=== PATIENT | male | born 1965 | race Caucasian/White ===

== ENCOUNTER → 2016-07-01 | Outpatient (CLI) | payer MEDICARE, OTHER ==
--- NOTE | 2016-07-01 19:26 | XR ---
EXAMINATION TYPE: XR chest 2V DATE OF EXAM: 07/01/2016 7:01 PM COMPARISON: 02/10/2015 HISTORY: Cough and congestion TECHNIQUE: Frontal and lateral views of the chest are obtained. FINDINGS: Heart and mediastinum are normal. Lungs are clear. Diaphragm is normal. Bony thorax appear s normal. IMPRESSION: Normal chest. No change.
== END | disposition home or self-care (01) ==
LOC: RADXRMAIN 18:49
PROVIDERS: ATTEND Nurse Practitioner Family
DX: R06.2 Wheezing (principal)
CPT/HCPCS: 71020

== ENCOUNTER 2017-11-18 22:17 | Observation (INO) | payer MEDICARE, OTHER ==
[2017-11-18 23:13] LABS: Basophils # (A) 0.1 k/uL (0-0.2); Basophils % (A) 1 %; Eosinophils # (A) 0.3 k/uL (0-0.7); Eosinophils % (A) 3 %; HCT 45.8 % (39.0-53.0); HGB 15.5 gm/dL (13.0-17.5); Lymphocytes % (A) 29 %; MCH 29.6 pg (25.0-35.0); MCHC 33.8 g/dL (31.0-37.0); MCV 87.6 fL (80.0-100.0); Mean Platelet Volume 8.2; Monocytes % (A) 7 %; Neutrophils # (A) 7.8 k/uL (1.3-7.7); Neutrophils % (A) 57 %; Platelet Count 235 k/uL (150-450); RBC 5.23 m/uL (4.30-5.90); WBC 13.7 k/uL (3.8-10.6)
[2017-11-18 23:20] LABS: Anion Gap 13 mmol/L; Blood Urea Nitrogen 17 mg/dL (9-20); Calcium 9.5 mg/dL (8.4-10.2); Carbon Dioxide 19 mmol/L (22-30); Chloride 108 mmol/L (98-107); Glucose 114 mg/dL (74-99); Sodium 140 mmol/L (137-145)
[2017-11-18] MEDS ORDERED: MORPHINE SULFATE 2 MG/ML SYRINGE IV STA (23:27)
[2017-11-18] MEDS ORDERED: ONDANSETRON 4 MG/2 ML VIAL IVP STA (23:27)
--- NOTE | 2017-11-18 23:32 | ED ---
Abdominal Pain HPI - General Chief Complaint: Urogenital Stated Complaint: kidney stones Time Seen by Provider: 11/18/17 22:27 Source: patient Mode of arrival: ambulatory Limitations: no limitations - History of Present Illness Initial Comments: Patient is a 51-year-old man with a history of previous kidney stones, as well as colostomy due to Crohn's disease. He presents with acute onset of left flank pain at about 9 PM, that he states is identical to previous episodes of kidney stone. He states that the pain now is radiating towards the left testicle. The pain is coming by nausea and 3-4 episodes of vomiting. He states pain is sharp, seems to come in waves, and is severe. He has not discovered worsening or relieving factors. The patient states that he has the urge to urinate but has not been able to pass any urine. Earlier today before coming in he noticed some blood in the urine. MD Complaint: abdominal pain Onset/Timin -: hour(s) Location: L flank Radiation: other (Left groin) Migration to: no migration Severity: severe Quality: sharp Consistency: colicky Improves With: nothing Worsens With: nothing Associated Symptoms: nausea, vomiting, other - Related Data Home Medications Medication Instructions Recorded Confirmed HYDROcodone/APAP 10-325MG [[place] 1 each PO Q4HR PRN 03/17/14 11/18/17 10] ALPRAZolam [Xanax] 1 mg PO Q8HR 05/22/15 11/18/17 Allergies Allergy/AdvReac Type Severity Reaction Status Date / Time Iodinated Contrast- Oral and Allergy Unknown Verified 11/18/17 22:57 IV Dye [Iodinated Contrast Media - IV Dye] ketorolac tromethamine Allergy Unknown Verified 11/18/17 22:57 [From Toradol] Review of Systems ROS Statement: Those systems with pertinent positive or pertinent negative responses have been documented in the HPI. ROS Other: All systems not noted in ROS Statement are negative. Constitutional: Denies: fever, chills Respiratory: Denies: cough, dyspnea Cardiovascular: Denies: chest pain, palpitations, edema Gastrointestinal: Reports: as per HPI, abdominal pain, nausea, vomiting. Denies : diarrhea, constipation, hematemesis, melena, hematochezia Genitourinary: Reports: as per HPI, urgency, hematuria, testicular pain. Denies : dysuria, discharge Musculoskeletal: Denies: back pain Skin: Denies: rash Neurological: Denies: headache Hematological/Lymphatic: Denies: easy bleeding Past Medical History Additional Past Medical History / Comment(s): crohn History of Any Multi-Drug Resistant Organisms: None Reported Past Surgical History: No Surgical Hx Reported Past Psychological History: No Psychological Hx Reported Smoking Status: Current every day smoker Past Alcohol Use History: None Reported Past Drug Use History: Marijuana General Exam Limitations: no limitations General appearance: alert, in distress Head exam: Present: atraumatic, normocephalic Eye exam: Present: normal appearance. Absent: scleral icterus, conjunctival injection Neck exam: Present: normal inspection Respiratory exam: Present: normal lung sounds bilaterally. Absent: respiratory distress, wheezes, rales, rhonchi, stridor Cardiovascular Exam: Present: regular rate, normal rhythm, normal heart sounds. Absent: systolic murmur, diastolic murmur, rubs, gallop GI/Abdominal exam: Present: soft, normal bowel sounds, other (Left-sided colostomy which is normal in appearance.). Absent: distended, tenderness, guarding, rebound, rigid, mass, pulsatile mass, hernia Extremities exam: Present: normal inspection, normal capillary refill. Absent: pedal edema, calf tenderness Back exam: Present: normal inspection. Absent: CVA tenderness (R), CVA tenderness (L) Neurological exam: Present: alert Skin exam: Present: warm, dry, intact, normal color. Absent: rash Course Vital Signs 11/18/17 22:23 Temperature 98.7 F Pulse Rate 86 Respiratory 18 Rate Blood Pressure 162/103 Medical Decision Making - Lab Data Result diagrams: 11/18/17 22:48 11/18/17 22:48 Lab Results 11/18/17 11/18/17 Range/Units 22:48 22:48 WBC 13.7 H (3.8-10.6) k/uL RBC 5.23 (4.30-5.90) m/uL Hgb 15.5 (13.0-17.5) gm/dL Hct 45.8 (39.0-53.0) % MCV 87.6 (80.0-100.0) fL MCH 29.6 (25.0-35.0) pg MCHC 33.8 (31.0-37.0) g/dL RDW 13.0 (11.5-15.5) % Plt Count 235 (150-450) k/uL Neutrophils % 57 % Lymphocytes % 29 % Monocytes % 7 % Eosinophils % 3 % Basophils % 1 % Neutrophils # 7.8 H (1.3-7.7) k/uL Lymphocytes # 4.0 (1.0-4.8) k/uL Monocytes # 1.0 (0-1.0) k/uL Eosinophils # 0.3 (0-0.7) k/uL Basophils # 0.1 (0-0.2) k/uL Sodium 140 (137-145) mmol/L Potassium 4.0 (3.5-5.1) mmol/L Chloride 108 H (98-107) mmol/L Carbon Dioxide 19 L (22-30) mmol/L Anion Gap 13 mmol/L BUN 17 (9-20) mg/dL Creatinine 0.90 (0.66-1.25) mg/dL Est GFR (CKD-EPI)AfAm >90 (>60 ml/min/1.73 sqM) Est GFR (CKD-EPI)NonAf >90 (>60 ml/min/1.73 sqM) Glucose 114 H (74-99) mg/dL Calcium 9.5 (8.4-10.2) mg/dL Disposition Referrals: Tigist Barrientos MD [Primary Care Provider] - 1-2 days
--- NOTE | 2017-11-19 00:12 | XR ---
EXAMINATION TYPE: XR KUB DATE OF EXAM: 11/18/2017 COMPARISON: 01/27/2013 HISTORY: Abdominal pain TECHNIQUE: 2 views FINDINGS: There is no sign of intestinal obstruction or pneumoperitoneum. Fecal pattern is normal. Th ere are clips from cholecystectomy. Lung bases are clear. IMPRESSION: Nonacute abdomen. No sign of a renal calculus.
[2017-11-19 01:26] LABS: Appearance,Urine Clear (Clear); Bacteria,Urine Rare /hpf; Bilirubin,Urine Negative (Negative); Blood,Urine Large (Negative); Budding Yeast,Urine Many /hpf; Color,Urine Light Red; Glucose,Urine (UA) Negative (Negative); Hyaline Casts,Urine 6 /lpf (0-2); Ketones,Urine Negative (Negative); Leukocyte Esterase,Urine Negative (Negative); Mucus,Urine Rare /hpf; Nitrite,Urine Negative (Negative); Protein,Urine 1+ (Negative); RBC,Urine >182 /hpf (0-5); Specific Gravity,Urine 1.018 (1.001-1.035); Squamous Epithelial Cell,Urine <1 /hpf (0-4); Urobilinogen,Urine <2.0 mg/dL (<2.0); WBC,Urine 9 /hpf (0-5)
[2017-11-19] MEDS ORDERED: MORPHINE SULFATE 2 MG/ML SYRINGE IV STA (02:14)
--- NOTE | 2017-11-19 05:58 | CT ---
EXAMINATION TYPE: CT abdomen pelvis wo con DATE OF EXAM: 11/19/2017 COMPARISON: 04/21/2012 HISTORY: abd pain, history of renal stones, history of Crohn'S disease, and ileostomy CT DLP: 495.90 mGycm Automated exposure control for dose reduction was used. TECHNIQUE: Helical acquisition of images was performed from the lung bases through the pelvis. FINDINGS: There is mild interstitial density at the right lung base. There is no pleural effusion. There is no pericardial effusion. Liver and spleen appear normal. There is no pancreatic mass. There are clips from cholecystectomy. Bi le ducts are not dilated. There is no adrenal mass. Right kidney has normal size and contour. Left ki dney is slightly enlarged with hydronephrosis. There is left-sided perinephric edema. There is 5 mm c alculus at the left ureteropelvic junction. There is no retroperitoneal adenopathy. There is ileostomy in the left mid abdomen. There is a rectal stump that appears unremarkable. Bladde r distends smoothly. I see no intestinal wall thickening. There is no ascites. There is ventral herni a on the right mid abdomen. This contains a loop of small bowel without incarceration. The bony struc tures appear intact. There is no evidence of a pelvic mass. IMPRESSION: OBSTRUCTING CALCULUS AT THE LEFT URETEROPELVIC JUNCTION. LEFT-SIDED HYDRONEPHROSIS AND PERINEPHRIC ED MARLEE. OBSTRUCTION IS NEW COMPARED TO OLD EXAM. STABLE RIGHT SIDE VENTRAL HERNIA WITHOUT EVIDENCE OF IN TESTINAL OBSTRUCTION.
--- NOTE | 2017-11-19 11:06 | HP ---
HISTORY AND PHYSICAL REASON FOR ADMISSION: Left ureteral stone with intractable colic. Jay Clancy is a 51-year-old gentleman with a history of Crohn's disease that is quite severe. He had has an ileostomy secondary to this. He has a history of kidney stones and has been cared for by Dr. Hernández in the past. He was last seen in our office in 2012. He had a ureteroscopy at that point in time by Dr. Hernández. The patient presented with a 24-hour history of severe ureteral colic. He was seen in the emergency room. CAT scan was obtained, I was not able to see it due to the system being down but according to the emergency room doctor, he had a 5 mm mid-ureteral stone. The patient's colic with severe and intractable. Thus, he was admitted to the hospital for IV hydration, narcotics and further evaluation. The patient has had multiple stones in the past. Per the patient, these stones have always had to be basketed. He has not been seen for several years. He has had no fever or chills. The urinalysis does not look infected. He is nauseated. PAST MEDICAL HISTORY: Positive for Crohn's disease as well as kidney stones. SURGICAL HISTORY: Includes multiple bowel surgeries including colon resection and colostomy/ileostomy. He also has had lumbar disc surgery and has severe sciatica due to this. CHRONIC MEDICATIONS INCLUDE: [place]. Family, social history is positive for colon cancer and brain cancer. The patient is a pack-a-day smoker. REVIEW OF SYSTEMS: There is no chest pain. shortness of breath. GI: Problems are as mentioned above as is the urologic problems. He does have chronic back pain. On examination, the patient is very uncomfortable. Vital signs are stable. HEENT examination is unremarkable. His respirations are normal. His heart is not tachycardic. The abdomen is soft. There is some tenderness in the left flank. The pain is general, it is unremarkable, the scrotum and testicles are unremarkable. Neurological examination is unremarkable. Musculoskeletal is unremarkable. Skin is normal. Lymphatic examination is unremarkable. IMPRESSION: 1. Left ureteral colic due to 5 mm mid-ureteral stone with intractable pain. 2. History of Crohn's disease, probably contributing to the stone disease. 3. History of sciatica due to lumbar disc disease. RECOMMENDATIONS: The patient will be admitted for IV hydration, parenteral narcotics, and further assessment as to determine whether he we needs to stone manipulation. MMODL / IJN: [id number] /
[2017-11-19] MEDS ORDERED: LACTATED RINGERS 1,000 ML IV ONE ×2 (12:59→18:14)
[2017-11-19] MEDS ORDERED: ONDANSETRON 4 MG/2 ML VIAL IVP PRN (13:06)
[2017-11-19] MEDS: MORPHINE SULFATE 2 MG/ML SYRINGE IVP PRN ×2 (13:23→16:01)
[2017-11-19] MEDS ORDERED: MIDAZOLAM 2 MG/2 ML VIAL ONE (17:52)
[2017-11-19] MEDS ORDERED: DEXAMETHASONE SOD PHOS (MDV) 100 MG/10 ML VIAL ONE (17:52)
[2017-11-19] MEDS ORDERED: ePHEDrine SULFATE/0.9% NACL/PF 50 MG/5 ML SYRINGE IV ONE (17:52)
[2017-11-19] MEDS ORDERED: fentaNYL (PF) 50 MCG/ML 2 ML AMP ONE (17:52)
[2017-11-19] MEDS ORDERED: SUCCINYLCHOLINE CHLORIDE 100 MG/5 ML SYR IV ONE (17:52)
[2017-11-19] MEDS ORDERED: ONDANSETRON 4 MG/2 ML VIAL ONE (17:52)
[2017-11-19] MEDS ORDERED: PROPOFOL 10 MG/ML 20 ML VIAL IV ONE (17:52)
[2017-11-19] MEDS ORDERED: LIDOCAINE 1% INJ 10MG/ML (20 ML MDV) ONE (17:52)
[2017-11-19] MEDS ORDERED: PHENYLEPHRINE-0.9% NACL SYG 1 MG/10 ML SYRINGE ONE (17:52)
[2017-11-19] MEDS ORDERED: SODIUM CHLORIDE 0.9% 50 ML with ceFAZolin 1,000 MG IV ONE ×2 (18:11)
[2017-11-19] MEDS ORDERED: IOHEXOL 350 MG/ML 50ML BOTTLE INJ ONE (18:14)
[2017-11-19] MEDS ORDERED: SODIUM CHLORIDE 0.9% 1,000 ML IV ONE (18:59)
--- NOTE | 2017-11-19 19:28 | P.OP ---
Date of Procedure: 11/19/17 Preoperative Diagnosis: Left ureteral calculus Postoperative Diagnosis: Left ureteral calculus Procedure(s) Performed: Tosca be with left ureteroscopy lithotripsy and placement of left double-J catheter Implants: 6-Croatian by 24 cm double-J catheter Anesthesia: JUAN DAVIDA Surgeon: Michael Hernández Estimated Blood Loss (ml): 0 Pathology: other (fragments of left ureteral calculus) Condition: stable Disposition: PACU Indications for Procedure: Patient is a 51-year-old male with a history of Crohn's disease and recurrent urolithiasis who was admitted today with severe left flank pain nausea and vomiting secondary to a 4 x 5 mm calculus in the proximal left ureter noted on computed tomography scan. The patient continues to have severe pain and wishes to proceed with ureteroscopy with lithotripsy for treatment. Description of Procedure: The patient was taken to the suite where adequate general anesthesia via orotracheal intubation was instituted. The patient was placed in the dorsal lithotomy position with his legs suspended from padded Edward stirrups. Pneumatic compression stockings were applied to the lower legs. The genitalia were prepped with Betadine soap and draped in a sterile fashion. The urethral meatus was unremarkable. The 22-Croatian cystoscope sheath with 30 lens was passed through the urethra and into the bladder. The anterior urethra was unremarkable. The prostatic urethra showed evidence of moderate lateral lobe enlargement consistent with the patient's age. Both ureteral orifice ease were of normal location and configuration. There was some sand on the floor the bladder but no calculus was visible. Using an 8-Croatian cone-tipped catheter a left retrograde ureterogram was performed using fluoroscopic guidance. In the mid ureter was a filling defect consistent with a 4 x 5 mm calculus. A 0.035 straight Glidewire was advanced through the left ureteral orifice, beyond the calculus and up to the region of the renal pelvis. The cystoscope was withdrawn leaving the Glidewire in place. I initially attempted to advance the flexible ureteroscope over the Glidewire but this would not easily passed through the ureteral orifice. A 13-Croatian ureteral reentry sheath with 11- Croatian obturator was then advanced over the Glidewire and positioned so that the end of the reentry sheath was in the mid ureter distal to the calculus. The flexible ureteroscope was passed through the reentry sheath and the calculus was identified in the mid ureter. The calculus was broken down into smaller fragments using a 365 fiber and the holmium laser initially at a setting of 600 mJ and 20 cps. In doing this portion of the calculus migrated into the proximal ureter and eventually into the renal pelvis. The calculus was successfully located and broken down into smaller fragments. All fragments present within the ureter and renal pelvis larger than 1 mm were removed using a 1.7 nitinol stone basket. Due to edema present in the ureter where the calculus was impacted it was elected to leave a double-J catheter. The 0.035 Glidewire was advanced through the ureteroscope and the ureteroscope was withdrawn leaving the Glidewire in place. The reentry sheath was removed. The cystoscope was backloaded onto the Glidewire and reintroduced into the bladder. A 6-Croatian by 24 cm double-J catheter was then advanced over the Glidewire and positioned using fluoroscopy so that the proximal end coiled in the region of the renal pelvis and the distal end coiled in the bladder. The bladder was drained and the cystoscope was withdrawn. The patient tolerated procedure well and left the operative room awake and in satisfactory condition. There was no blood loss. If the patient is comfortable he will be discharged later this evening. He will return to see me in 1 week at which time his double-J catheter will be removed.
[2017-11-19 19:30] VITALS: RESP 18
[2017-11-19 19:57] VITALS: BP 123/81; PULSE 100; TEMP 98.1
--- NOTE | 2017-11-19 22:37 | FL ---
EXAMINATION TYPE: FL urography retrograde DATE OF EXAM: 11/19/2017 FLUOROSCOPY Fluoroscopy time of 9 seconds was used during cystoscopy with left-sided lithotripsy. 1 image/s docu ment/s the procedure.
== END 2017-11-19 20:31 | disposition home or self-care (01) ==
LOC: EC 22:17 → 4MS4W 11-19 05:30
PROVIDERS: ADMIT Urology; ATTEND Urology
DX: N13.2 Hydronephrosis with renal and ureteral calculous obstruction (principal); K50.90 Crohn's disease, unspecified, without complications; Z93.2 Ileostomy status; M51.17 Intervertebral disc disorders with radiculopathy, lumbosacral region; F17.210 Nicotine dependence, cigarettes, uncomplicated; K43.9 Ventral hernia without obstruction or gangrene; G89.29 Other chronic pain; M54.9 Dorsalgia, unspecified; Z79.899 Other long term (current) drug therapy; Z88.5 Allergy status to narcotic agent; Z91.041 Radiographic dye allergy status; Z87.442 Personal history of urinary calculi; Z80.0 Family history of malignant neoplasm of digestive organs; Z80.8 Family history of malignant neoplasm of other organs or systems
CPT/HCPCS: 52356; 99285 ×2; 96374 ×2; 96375 ×2; 96361 ×2; 96376 ×2; 36415; 80048; 85025; 81001; 82365; 74420; 74018; 74176; G0378; C2625; C1758; C1769; J2250; J2405 ×2; J2001; J3010; J2270 ×2; J0690; J1100; J2370; J0330; J2704; Q9967

== ENCOUNTER 2018-11-15 14:20 | Emergency (ER) | payer MEDICARE, OTHER ==
[2018-11-15 14:26] VITALS: TEMP 97.5
[2018-11-15] MEDS ORDERED: SODIUM CHLORIDE 0.9% 2,000 ML IV STA (14:29)
[2018-11-15] MEDS ORDERED: MORPHINE SULFATE 4 MG/ML SYRINGE IV STA (14:29)
[2018-11-15] MEDS ORDERED: ONDANSETRON 4 MG/2 ML VIAL IVP STA (14:29)
[2018-11-15] MEDS ORDERED: TAMSULOSIN 0.4 MG CAP.ER.24H PO STA (14:48)
[2018-11-15 14:59] LABS: Basophils # (A) 0.1 k/uL (0-0.2); Basophils % (A) 1 %; Eosinophils # (A) 0.2 k/uL (0-0.7); Eosinophils % (A) 2 %; HCT 44.4 % (39.0-53.0); HGB 15.1 gm/dL (13.0-17.5); Lymphocytes # (A) 2.6 k/uL (1.0-4.8); Lymphocytes % (A) 19 %; MCH 29.7 pg (25.0-35.0); MCHC 34.1 g/dL (31.0-37.0); MCV 86.9 fL (80.0-100.0); Mean Platelet Volume 8.4; Monocytes # (A) 0.7 k/uL (0-1.0); Monocytes % (A) 5 %; Neutrophils # (A) 9.8 k/uL (1.3-7.7); Neutrophils % (A) 71 %; Platelet Count 245 k/uL (150-450); RDW 14.5 % (11.5-15.5); WBC 13.7 k/uL (3.8-10.6)
[2018-11-15 15:07] LABS: Appearance,Urine Cloudy (Clear); Bilirubin,Urine Negative (Negative); Blood,Urine Large (Negative); Color,Urine Red; Glucose,Urine (UA) Negative (Negative); Ketones,Urine Trace (Negative); Leukocyte Esterase,Urine Small (Negative); Nitrite,Urine Negative (Negative); Protein,Urine 1+ (Negative); RBC,Urine >182 /hpf (0-5); Specific Gravity,Urine 1.024 (1.001-1.035); Urobilinogen,Urine <2.0 mg/dL (<2.0)
[2018-11-15 15:09] LABS: ALT 27 U/L (21-72); AST 32 U/L (17-59); African American GFR (CKD) >90 (>60 ml/min/1.73 sqM); Albumin 4.1 g/dL (3.5-5.0); Alkaline Phosphatase 92 U/L (38-126); Anion Gap 10 mmol/L; Blood Urea Nitrogen 12 mg/dL (9-20); Calcium 9.1 mg/dL (8.4-10.2); Carbon Dioxide 20 mmol/L (22-30); Chloride 109 mmol/L (98-107); Glucose 120 mg/dL (74-99); Lipase 107 U/L (23-300); Potassium 4.2 mmol/L (3.5-5.1); Sodium 139 mmol/L (137-145); Total Bilirubin 0.3 mg/dL (0.2-1.3); Total Protein 7.2 g/dL (6.3-8.2)
[2018-11-15] MEDS ORDERED: HYDROmorphone 1 MG/ML 1 ML SYRINGE IVP STA ×3 (15:18→18:26)
--- NOTE | 2018-11-15 15:20 | ED ---
General Adult HPI - General Source: patient, RN notes reviewed Mode of arrival: ambulatory Limitations: no limitations <Jd Bean - Last Filed: 11/15/18 15:18> <Rigo Valdez - Last Filed: 11/15/18 18:30> - General Chief complaint: Urogenital Stated complaint: Flank pain Time Seen by Provider: 11/15/18 14:27 - History of Present Illness Initial comments: 52-year-old male presents emergency Department with chief complaint of left flank pain. Patient states that he had hematuria yesterday. Without any pain b ut states that today approximately one hour prior arrival he had worsening pain and radiates from his left flank all way down to his scrotum. Patient states she's had multiple kidney stones in the past in which she has had them removed. Patient states he has never passed a stone without surgery. Patient has seen Dr. Hernández in the past. Patient states that his urine has a large amount of blood. He reports no fevers or chills. Patient has ALLERGY to IV dye and Toradol. Patient does not take any current pain medications. Patient denies any fevers or chills has meant to some nausea no vomiting no diarrhea no constipation (Jd Bean) - Related Data Home Medications Medication Instructions Recorded Confirmed HYDROcodone/APAP 10-325MG [[place] 1 each PO Q4HR PRN 03/17/14 11/15/18 10] ALPRAZolam [Xanax] 1 mg PO Q8HR 05/22/15 11/15/18 Albuterol Inhaler [Ventolin Hfa 2 puff INHALATION RT-Q4H 11/15/18 11/15/18 Inhaler] Previous Rx's Medication Instructions Recorded Cephalexin [Keflex] 500 mg PO QID #40 cap 11/15/18 Tamsulosin [Flomax] 0.4 mg PO DAILY #14 cap 11/15/18 Allergies Allergy/AdvReac Type Severity Reaction Status Date / Time Iodinated Contrast- Oral and Allergy Unknown Verified 11/15/18 17:56 IV Dye [Iodinated Contrast Media - IV Dye] ketorolac tromethamine Allergy Unknown Verified 11/15/18 17:56 [From Toradol] Review of Systems ROS Other: All systems not noted in ROS Statement are negative. <Jd Bean - Last Filed: 11/15/18 15:18> ROS Other: All systems not noted in ROS Statement are negative. <Rigo Valdez - Last Filed: 11/15/18 18:30> ROS Statement: Those systems with pertinent positive or pertinent negative responses have been documented in the HPI. Past Medical History Past Medical History: GERD/Reflux Additional Past Medical History / Comment(s): Nephrolithiasis, hematuria, crohn's disease/multiple resections and ileostomy, gastric ulcer, colon polyps, anemia, DDD, chronic back pain, numbness/tingling bilateral legs, sinus problems/seasonal allergies, recent intermittent chest pain and is to have stress test 11/25/17. History of Any Multi-Drug Resistant Organisms: None Reported Past Surgical History: Bowel Resection, Hernia Repair Additional Past Surgical History / Comment(s): cystoscopies/L ureteroscopy/lithotripsey/double J catheter insertion and removal, ureteral stent, multiple bowel resections/ileostomy, colonoscopies, incisional hernia repair, epidural injections to back. Past Anesthesia/Blood Transfusion Reactions: No Reported Reaction Additional Past Anesthesia/Blood Transfusion Reaction / Comment(s): Pt received blood in 1979 without reaction. Past Psychological History: ADD/ADHD, Anxiety, Bipolar, Depression Smoking Status: Current every day smoker Past Alcohol Use History: None Reported Past Drug Use History: Marijuana - Past Family History Father Additional Family Medical History / Comment(s): Father is . He had a brain tumor. Pt unsure if cancerous. <Jd Bean - Last Filed: 11/15/18 15:18> General Exam Limitations: no limitations General appearance: alert, in no apparent distress Head exam: Present: atraumatic, normocephalic, normal inspection Neck exam: Present: normal inspection, full ROM. Absent: tenderness, meningis mus, lymphadenopathy Respiratory exam: Present: normal lung sounds bilaterally. Absent: respiratory distress, wheezes, rales, rhonchi, stridor Cardiovascular Exam: Present: regular rate, normal rhythm, normal heart sounds. Absent: systolic murmur, diastolic murmur, rubs, gallop, clicks GI/Abdominal exam: Present: soft, tenderness, normal bowel sounds. Absent: distended, guarding, rebound, rigid Back exam: Present: CVA tenderness (L). Absent: CVA tenderness (R) <Jd Bean - Last Filed: 11/15/18 15:18> Course Vital Signs 11/15/18 14:22 Temperature 97.5 F L Pulse Rate 98 Respiratory 18 Rate Blood Pressure 146/91 O2 Sat by Pulse 96 Oximetry Medical Decision Making - Lab Data Result diagrams: 11/15/18 14:39 11/15/18 14:39 <Jd Bean - Last Filed: 11/15/18 15:18> - Lab Data Result diagrams: 11/15/18 14:39 11/15/18 14:39 - Radiology Data Radiology results: report reviewed (Computed tomography scan does show 2 kidney stones left proximal ureter, 4-5 mm with some hydronephrosis.) <Rigo Valdez - Last Filed: 11/15/18 18:30> - Medical Decision Making Patient reevaluated by myself, Dr. Valdez. Patient is standing up at bedside. Patient states he still has some discomfort however has improved with pain medication. Patient is requesting discharge and pain medication prior to discharge. Patient states he does have a history of multiple previous kidney stones. Patient states he does see Dr. Angulo and will follow-up with him tomorrow. Patient is updated on results as well as need for follow-up. Abdomen is soft with mild tenderness in the left flank. (Rigo Valdez) - Lab Data Lab Results 11/15/18 11/15/18 11/15/18 Range/Units 14:39 14:39 14:39 WBC 13.7 H (3.8-10.6) k/uL RBC 5.10 (4.30-5.90) m/uL Hgb 15.1 (13.0-17.5) gm/dL Hct 44.4 (39.0-53.0) % MCV 86.9 (80.0-100.0) fL MCH 29.7 (25.0-35.0) pg MCHC 34.1 (31.0-37.0) g/dL RDW 14.5 (11.5-15.5) % Plt Count 245 (150-450) k/uL Neutrophils % 71 % Lymphocytes % 19 % Monocytes % 5 % Eosinophils % 2 % Basophils % 1 % Neutrophils # 9.8 H (1.3-7.7) k/uL Lymphocytes # 2.6 (1.0-4.8) k/uL Monocytes # 0.7 (0-1.0) k/uL Eosinophils # 0.2 (0-0.7) k/uL Basophils # 0.1 (0-0.2) k/uL Sodium 139 (137-145) mmol/L Potassium 4.2 (3.5-5.1) mmol/L Chloride 109 H (98-107) mmol/L Carbon Dioxide 20 L (22-30) mmol/L Anion Gap 10 mmol/L BUN 12 (9-20) mg/dL Creatinine 0.82 (0.66-1.25) mg/dL Est GFR (CKD-EPI)AfAm >90 (>60 ml/min/1.73 sqM) Est GFR (CKD-EPI)NonAf >90 (>60 ml/min/1.73 sqM) Glucose 120 H (74-99) mg/dL Calcium 9.1 (8.4-10.2) mg/dL Total Bilirubin 0.3 (0.2-1.3) mg/dL AST 32 (17-59) U/L ALT 27 (21-72) U/L Alkaline Phosphatase 92 (38-126) U/L Total Protein 7.2 (6.3-8.2) g/dL Albumin 4.1 (3.5-5.0) g/dL Lipase 107 (23-300) U/L Urine Color Red Urine Appearance Cloudy (Clear) Urine pH 6.0 (5.0-8.0) Ur Specific [place] 1.024 (1.001-1.035) Urine Protein 1+ H (Negative) Urine Glucose (UA) Negative (Negative) Urine Ketones Trace H (Negative) Urine Blood Large H (Negative) Urine Nitrite Negative (Negative) Urine Bilirubin Negative (Negative) Urine Urobilinogen <2.0 (<2.0) mg/dL Ur Leukocyte Esterase Small H (Negative) Urine RBC >182 H (0-5) /hpf Urine WBC 82 H (0-5) /hpf Urine WBC Clumps Many H (None) /hpf Disposition <Jd Bean - Last Filed: 11/15/18 15:18> Is patient prescribed a controlled substance at d/c from ED?: No Time of Disposition: 18:30 <Rigo Valdez - Last Filed: 11/15/18 18:30> Clinical Impression: Left ureteral calculus Disposition: HOME SELF-CARE Condition: Stable Instructions (If sedation given, give patient instructions): Kidney Stones (ED) Additional Instructions: Please follow-up with Dr. Hernández the next day or 2 as planned. Please also follow-up to primary care physician. Return for fevers, increased pain, uncontrolled vomiting, worsening or changing symptoms or other concerns. Prescriptions: Tamsulosin [Flomax] 0.4 mg PO DAILY #14 cap Cephalexin [Keflex] 500 mg PO QID #40 cap Referrals: Tigist Barrientos MD [Primary Care Provider] - 1-2 days
--- NOTE | 2018-11-15 15:56 | CT ---
EXAMINATION TYPE: CT abdomen pelvis wo con DATE OF EXAM: 11/15/2018 COMPARISON: 11/12/1717 HISTORY: Bilateral flank pain. CT DLP: 770.5 mGycm Automated exposure control for dose reduction was used. TECHNIQUE: Helical acquisition of images was performed from the lung bases through the pelvis. FINDINGS: There is coarse interstitial infiltrate in the right lower lobe. Heart size is normal. There is no pe ricardial effusion. There is no pleural effusion. Liver and spleen appear normal. Stomach appears normal. Bile ducts are not dilated. There is no pancr eatic mass. There are clips from cholecystectomy. There is no adrenal mass. Kidneys have normal size. There is left-sided hydronephrosis with mild christina nephric edema. There is 4 mm calculus in the proximal left ureter. There is a second 5 mm calculus pr oximal left ureter. There is no retroperitoneal adenopathy. There is ileostomy left mid abdomen. Ther e is total colectomy noted. Bladder distends smoothly. There is no free fluid in the pelvis. There is no inguinal hernia. There a re small bilateral inguinal lymph nodes. There is no mesenteric edema. There is no ascites or free air. There is ventral hernia in the lateral right upper quadrant. There is loop of small bowel in the hernia without evidence of obstruction. Lumbar spine is intact. There is no compression fracture. I see no bony destructive process. There is spurring in the lumbar spine with vacuum disc at L4-5. The bony pelvis appears intact. IMPRESSION: THERE ARE 2 CALCULI IN THE PROXIMAL LEFT URETER WITH HYDRONEPHROSIS. OBSTRUCTION IS SIMILAR TO OLD CT SCAN. OLD EXAM SHOWS ONLY ONE OBSTRUCTING CALCULUS. RIGHT SIDE ABDOMINAL WALL VENTRAL HERNIA UNCHANGED. THERE ARE SOME FIBROTIC CHANGES AND SUBSEGMENTAL ATELECTASIS RIGHT LUNG BASE INCREASED COMPARED TO OLD EXAM.
[2018-11-15] MEDS ORDERED: METOCLOPRAMIDE 5 MG/ML 2 ML VIAL IVP STA (18:26)
[2018-11-15 18:38] VITALS: BP 128/74; PULSE 89; RESP 16
== END 2018-11-15 18:35 | disposition home or self-care (01) ==
LOC: EC 14:20
DX: N20.1 Calculus of ureter (principal); F31.9 Bipolar disorder, unspecified; F41.9 Anxiety disorder, unspecified; F90.9 Attention-deficit hyperactivity disorder, unspecified type; F17.200 Nicotine dependence, unspecified, uncomplicated; Z87.19 Personal history of other diseases of the digestive system; Z79.899 Other long term (current) drug therapy; Z88.6 Allergy status to analgesic agent; Z91.041 Radiographic dye allergy status
CPT/HCPCS: 36415; 80053; 83690; 85025; 81001; 87086; 74176; 99284; 96365; 96375 ×4; 96376 ×2; 96361 ×2; J2270; J2765; J2405; J0696; J1170

== ENCOUNTER 2018-11-16 05:20 | Inpatient (IN) | payer MEDICARE ==
[2018-11-16] MEDS ORDERED: ONDANSETRON 4 MG/2 ML VIAL IVP STA (05:30)
[2018-11-16] MEDS ORDERED: SODIUM CHLORIDE 0.9% 1,000 ML IV STA (05:30)
[2018-11-16] MEDS ORDERED: MORPHINE SULFATE 4 MG/ML SYRINGE IV STA (05:30)
--- NOTE | 2018-11-16 05:51 | ED ---
Abdominal Pain HPI - General Chief Complaint: Abdominal Pain Stated Complaint: kidney stone Source: patient, family Mode of arrival: ambulatory Limitations: no limitations - History of Present Illness Initial Comments: Jay is a 52-year-old gentleman with history of recurrent nephrolithiasis requiring stenting in the past. Patient was seen and evaluated in our emergency department yesterday where CT imaging confirmed to left-sided proximal ureteral stones measuring 4 and 5 mm each. Patient mild hydronephrosis. In addition his urinalysis was concerning for a possible urinary tract infection with 80 white blood cells and positive leuk esterase. Patient was discharged home on antibiotics Flomax. Patient reports that his pain was managed acceptably in the emergency Department he decided to be discharged home however upon discharge home his pain worsen. He reports only he's had the urge to urinate has been unable to do so. He reports that when he does urinate he gets no relief. He continues to have stabbing pain in his left flank. Patient reports he's been a wake all night draining comfortable and is unable to do so. Patient reports the pain so bad he's been vomiting he now has a headache and feels like he is getting dehydrated. - Related Data Home Medications Medication Instructions Recorded Confirmed HYDROcodone/APAP 10-325MG [[place] 1 each PO Q4HR PRN 03/17/14 11/15/18 10] ALPRAZolam [Xanax] 1 mg PO Q8HR 05/22/15 11/15/18 Albuterol Inhaler [Ventolin Hfa 2 puff INHALATION RT-Q4H 11/15/18 11/15/18 Inhaler] Previous Rx's Medication Instructions Recorded Cephalexin [Keflex] 500 mg PO QID #40 cap 11/15/18 Tamsulosin [Flomax] 0.4 mg PO DAILY #14 cap 11/15/18 Allergies Allergy/AdvReac Type Severity Reaction Status Date / Time Iodinated Contrast- Oral and Allergy Unknown Verified 11/16/18 05:26 IV Dye [Iodinated Contrast Media - IV Dye] ketorolac tromethamine Allergy Unknown Verified 11/16/18 05:26 [From Toradol] Review of Systems ROS Statement: Those systems with pertinent positive or pertinent negative responses have been documented in the HPI. ROS Other: All systems not noted in ROS Statement are negative. Past Medical History Past Medical History: GERD/Reflux Additional Past Medical History / Comment(s): Nephrolithiasis, hematuria, crohn's disease/multiple resections and ileostomy, gastric ulcer, colon polyps, anemia, DDD, chronic back pain, numbness/tingling bilateral legs, sinus problems/seasonal allergies, recent intermittent chest pain and is to have stress test 11/25/17. History of Any Multi-Drug Resistant Organisms: None Reported Past Surgical History: Bowel Resection, Hernia Repair Additional Past Surgical History / Comment(s): cystoscopies/L ureteroscopy/lithotripsey/double J catheter insertion and removal, ureteral stent, multiple bowel resections/ileostomy, colonoscopies, incisional hernia repair, epidural injections to back. Past Anesthesia/Blood Transfusion Reactions: No Reported Reaction Additional Past Anesthesia/Blood Transfusion Reaction / Comment(s): Pt received blood in 1979 without reaction. Past Psychological History: ADD/ADHD, Anxiety, Bipolar, Depression Smoking Status: Current some day smoker Past Alcohol Use History: None Reported Past Drug Use History: Marijuana - Past Family History Father Additional Family Medical History / Comment(s): Father is . He had a brain tumor. Pt unsure if cancerous. General Exam - General Exam Comments Initial Comments: Physical Exam GENERAL: Appears uncomfortable, writhing around in pain HENT: Normocephalic, Atraumatic. EYES: PERRL, EOMI PULMONARY: Unlabored respirations. No audible rales rhonchi or wheezing was noted. CARDIOVASCULAR: There is a regular rate and rhythm without any murmurs gallops or rubs. ABDOMEN: Multiple surgical scars tenderness to percussion left flank SKIN: Skin is clear with no lesions or rashes and otherwise unremarkable. : Deferred NEUROLOGIC: Patient is alert and oriented x3. Moving all extremities spontaneously MUSCULOSKELETAL: Normal extremities with adequate strength and full range of motion. No lower extremity swelling or edema. No calf tenderness. PSYCHIATRIC: Tearful Limitations: no limitations Course Vital Signs 11/16/18 05:23 Temperature 98.3 F Pulse Rate 86 Respiratory 20 Rate Blood Pressure 135/82 O2 Sat by Pulse 96 Oximetry Medical Decision Making - Medical Decision Making The patient was seen and evaluated history is obtained from patient and review of medical record This a 52-year-old gentleman with history of recurrent nephrolithiasis requiring stenting in the past who was diagnosed with 2 proximal left ureteral stones yesterday as well as a urinary tract infection Patient returns this morning vomiting, pain is uncontrolled. He appears quite uncomfortable. Repeat labs were obtained Patient care was discussed with the urologist design and sales consultant Dr. Call, at this time I do feel the patient will require admission the hospital for pain management and further evaluation by urology. In addition I'll treat with Rocephin for previously identified urinary tract infection, urine culture are still pending. Dr. Call agrees with plan for admission, patient to be made nothing by mouth for possible intervention. - Lab Data Result diagrams: 11/16/18 05:35 Lab Results 11/16/18 Range/Units 05:35 WBC 18.8 H (3.8-10.6) k/uL RBC 5.07 (4.30-5.90) m/uL Hgb 15.0 (13.0-17.5) gm/dL Hct 44.6 (39.0-53.0) % MCV 87.9 (80.0-100.0) fL MCH 29.6 (25.0-35.0) pg MCHC 33.7 (31.0-37.0) g/dL RDW 15.6 H (11.5-15.5) % Plt Count 233 (150-450) k/uL Neutrophils % 80 % Lymphocytes % 11 % Monocytes % 5 % Eosinophils % 1 % Basophils % 1 % Neutrophils # 15.0 H (1.3-7.7) k/uL Lymphocytes # 2.1 (1.0-4.8) k/uL Monocytes # 1.0 (0-1.0) k/uL Eosinophils # 0.2 (0-0.7) k/uL Basophils # 0.1 (0-0.2) k/uL Disposition Clinical Impression: Left ureteral calculus, Intractable pain Disposition: ADMITTED IP TO THIS [facility] Condition: Stable Is patient prescribed a controlled substance at d/c from ED?: No Referrals: Tigist Barrientos MD [Primary Care Provider] - 1-2 days
[2018-11-16 05:52] LABS: Basophils # (A) 0.1 k/uL (0-0.2); Basophils % (A) 1 %; Eosinophils # (A) 0.2 k/uL (0-0.7); Eosinophils % (A) 1 %; HCT 44.6 % (39.0-53.0); Lymphocytes # (A) 2.1 k/uL (1.0-4.8); Lymphocytes % (A) 11 %; MCH 29.6 pg (25.0-35.0); MCHC 33.7 g/dL (31.0-37.0); MCV 87.9 fL (80.0-100.0); Mean Platelet Volume 8.3; Monocytes % (A) 5 %; Neutrophils % (A) 80 %; Platelet Count 233 k/uL (150-450); RBC 5.07 m/uL (4.30-5.90); RDW 15.6 % (11.5-15.5); WBC 18.8 k/uL (3.8-10.6)
[2018-11-16] MEDS ORDERED: ONDANSETRON 4 MG/2 ML VIAL IVP PRN (05:56)
[2018-11-16] MEDS ORDERED: NALOXONE 0.4 MG/ML 1 ML VIAL IV PRN (05:56)
[2018-11-16] MEDS ORDERED: SODIUM CHLORIDE 0.9% 1,000 ML IV SCH (06:00)
[2018-11-16] MEDS ORDERED: cefTRIAXone IN SWFI 1,000 MG/10 ML SYRINGE IVP STA (06:00)
[2018-11-16 06:01] LABS: African American GFR (CKD) >90 (>60 ml/min/1.73 sqM); Anion Gap 8 mmol/L; Blood Urea Nitrogen 12 mg/dL (9-20); Calcium 8.8 mg/dL (8.4-10.2); Carbon Dioxide 22 mmol/L (22-30); Chloride 110 mmol/L (98-107); Glucose 124 mg/dL (74-99); Potassium 4.2 mmol/L (3.5-5.1); Sodium 140 mmol/L (137-145)
[2018-11-16] MEDS ORDERED: HYDROmorphone 1 MG/ML 1 ML SYRINGE IVP STA (06:16)
[2018-11-16] MEDS: MORPHINE SULFATE 4 MG/ML SYRINGE IV PRN ×2 (08:09→11:17)
--- NOTE | 2018-11-16 08:14 | P.GSHP ---
History of Present Illness H&P Date: 11/16/18 Chief Complaint: Left renal colic The patient is a 52-year-old white male with a history of recurrent urolithiasis, likely due to long-standing Crohn's disease. He presented to the emergency room yesterday with complaints of left flank pain radiating to the left groin, along with gross hematuria. A computed tomography scan showed evidence of mild left hydroureteronephrosis due to 2 left proximal ureteral calculi, measuring 4 and 5 mm. He was discharged home on antibiotics and Flomax, but returned with intractable symptoms. He also reports urgency, as well as headache, nausea, and vomiting. - Constitutional Constitutional: Denies chills, Denies fever - Gastrointestinal Gastrointestinal: Reports nausea, Reports vomiting - Genitourinary (Female) Genitourinary: Reports flank pain, Reports hematuria, Reports kidney stones Past Medical History Past Medical History: GERD/Reflux Additional Past Medical History / Comment(s): Nephrolithiasis, hematuria, crohn's disease/multiple resections and ileostomy, gastric ulcer, colon polyps, anemia, DDD, chronic back pain, numbness/tingling bilateral legs, sinus problems/seasonal allergies, recent intermittent chest pain and is to have stres s test 11/25/17. History of Any Multi-Drug Resistant Organisms: None Reported Past Surgical History: Bowel Resection, Hernia Repair Additional Past Surgical History / Comment(s): cystoscopies/L ureteroscopy/lithotripsey/double J catheter insertion and removal, ureteral stent, multiple bowel resections/ileostomy, colonoscopies, incisional hernia repair, epidural injections to back. Past Anesthesia/Blood Transfusion Reactions: No Reported Reaction Additional Past Anesthesia/Blood Transfusion Reaction / Comment(s): Pt received blood in 1979 without reaction. Past Psychological History: ADD/ADHD, Anxiety, Bipolar, Depression Smoking Status: Current some day smoker Past Alcohol Use History: None Reported Past Drug Use History: Marijuana - Past Family History Father Additional Family Medical History / Comment(s): Father is . He had a brain tumor. Pt unsure if cancerous. Medications and Allergies Home Medications Medication Instructions Recorded Confirmed Type HYDROcodone/APAP 10-325MG [[place] 1 tab PO Q4HR PRN 03/17/14 11/16/18 History 10] ALPRAZolam [Xanax] 1 mg PO Q8HR 05/22/15 11/16/18 History Albuterol Inhaler [Ventolin Hfa 2 puff INHALATION RT-Q4H PRN 11/15/18 11/16/18 History Inhaler] Cephalexin [Keflex] 500 mg PO QID #40 cap 11/15/18 11/16/18 Rx Tamsulosin [Flomax] 0.4 mg PO DAILY #14 cap 11/15/18 11/16/18 Rx Allergies Allergy/AdvReac Type Severity Reaction Status Date / Time Iodinated Contrast- Oral and Allergy Unknown Verified 11/16/18 07:43 IV Dye [Iodinated Contrast Media - IV Dye] ketorolac tromethamine Allergy Unknown Verified 11/16/18 07:43 [From Toradol] Surgical - Exam Vital Signs Temp Pulse Resp BP Pulse Ox 98.3 F 86 20 135/82 96 11/16/18 05:23 11/16/18 05:23 11/16/18 05:23 11/16/18 05:23 11/16/18 05:23 - General well developed, well nourished, severe pain - Respiratory normal respiratory effort - Abdomen Left-sided tenderness, left-sided colostomy Abdomen: soft, no guarding, no rigid, no rebound - Genitourinary normal penis with no external lesions, testicles non-tender - Psychiatric oriented to time, oriented to person, oriented to place, speech is normal, memory intact Results - Labs 11/16/18 05:35 11/16/18 05:35 Abnormal Lab Results - Last 24 Hours (Table) 11/16/18 11/16/18 Range/Units 05:35 05:35 WBC 18.8 H (3.8-10.6) k/uL RDW 15.6 H (11.5-15.5) % Neutrophils # 15.0 H (1.3-7.7) k/uL Chloride 110 H (98-107) mmol/L Glucose 124 H (74-99) mg/dL Diabetes panel 11/16/18 Range/Units 05:35 Sodium 140 (137-145) mmol/L Potassium 4.2 (3.5-5.1) mmol/L Chloride 110 H (98-107) mmol/L Carbon Dioxide 22 (22-30) mmol/L BUN 12 (9-20) mg/dL Creatinine 0.78 (0.66-1.25) mg/dL Glucose 124 H (74-99) mg/dL Calcium 8.8 (8.4-10.2) mg/dL Calcium panel 11/16/18 Range/Units 05:35 Calcium 8.8 (8.4-10.2) mg/dL Pituitary panel 11/16/18 Range/Units 05:35 Sodium 140 (137-145) mmol/L Potassium 4.2 (3.5-5.1) mmol/L Chloride 110 H (98-107) mmol/L Carbon Dioxide 22 (22-30) mmol/L BUN 12 (9-20) mg/dL Creatinine 0.78 (0.66-1.25) mg/dL Glucose 124 H (74-99) mg/dL Calcium 8.8 (8.4-10.2) mg/dL Adrenal panel 11/16/18 Range/Units 05:35 Sodium 140 (137-145) mmol/L Potassium 4.2 (3.5-5.1) mmol/L Chloride 110 H (98-107) mmol/L Carbon Dioxide 22 (22-30) mmol/L BUN 12 (9-20) mg/dL Creatinine 0.78 (0.66-1.25) mg/dL Glucose 124 H (74-99) mg/dL Calcium 8.8 (8.4-10.2) mg/dL - Imaging CT scan - abdomen: report reviewed, image reviewed Assessment and Plan (1) Left ureteral calculus Current Visit: Yes Status: Acute Code(s): N20.1 - CALCULUS OF URETER SNOMED Code(s): 13614333 (2) Hydronephrosis with renal and ureteral calculus obstruction Current Visit: Yes Status: Acute Code(s): N13.2 - HYDRONEPHROSIS WITH RENAL AND URETERAL CALCULOUS OBSTRUCTION SNOMED Code(s): 970846573 Plan: Mr. Clancy was admitted for parenteral analgesics and antiemetics. He will likely require endoscopic intervention, either in the form of left ureteroscopy with laser lithotripsy or ureteral stent insertion with secondary ureteroscopy
[2018-11-16 08:35] VITALS: BMI 33.5
[2018-11-16] MEDS ORDERED: IV FLUID CONTINUATION 1,000 ML IV ONE (14:13)
[2018-11-16 14:21] VITALS: TEMP 98.9
[2018-11-16] MEDS: fentaNYL (PF) 50 MCG/ML 2 ML AMP IVP ONE ×2 (14:30→15:05)
[2018-11-16 15:11] VITALS: RESP 16
[2018-11-16] MEDS ORDERED: MIDAZOLAM (PF) 2 MG/2 ML VIAL IVP ONE (15:19)
[2018-11-16] MEDS ORDERED: PROPOFOL 10 MG/ML 20 ML VIAL IV ONE (15:30)
[2018-11-16] MEDS ORDERED: MIDAZOLAM 2 MG/2 ML VIAL ONE (15:30)
[2018-11-16] MEDS ORDERED: fentaNYL (PF) 50 MCG/ML 2 ML AMP ONE (15:30)
[2018-11-16] MEDS ORDERED: SUCCINYLCHOLINE CHLORIDE 100 MG/5 ML SYR IV ONE (15:30)
[2018-11-16] MEDS ORDERED: LIDOCAINE 1% INJ 10MG/ML (20 ML MDV) ONE (15:30)
--- NOTE | 2018-11-16 16:36 | P.OP ---
Date of Procedure: 11/16/18 Preoperative Diagnosis: Proximal left ureteral calculi Postoperative Diagnosis: Proximal left ureteral calculi Procedure(s) Performed: Cystoscopy with left ureteroscopy and lithotripsy Anesthesia: KATYA Surgeon: Michael Hernández Pathology: other (Fragments of left ureteral calculi) Condition: stable Disposition: PACU Indications for Procedure: The patient is a 52-year-old male with a history of urolithiasis admitted early this morning with severe left flank pain secondary to a 4-5 mm calculus in the proximal left ureter. A smaller calculus is located 2 cm proximal to the first. The patient remains in severe pain. Left ureteroscopy with lithotripsy is planned. Description of Procedure: The patient was taken the operating suite where adequate general anesthesia via orotracheal intubation was instituted. He was placed in the dorsal lithotomy position with his legs suspended from padded stirrups. Pneumatic compression stockings were applied to the lower legs. The genitalia was prepped with Betadine soap, painted with Betadine solution and draped in a sterile fashion. The penile and prostatic urethra were traversed under direct vision using the 17-Welsh cystoscope sheath and 30 lens. The anterior and prostatic urethra were unremarkable. The bladder was examined. The left ureteral orifice was somewhat patulous presumably related to previous double-J catheters. The right ureteral orifice was unremarkable. No other abnormalities were noted within the bladder. A 0.035 straight Glidewire was advanced through the right ureteral orifice and under fluoroscopic guidance up to the region of the renal pelvis. The cystoscope was withdrawn leaving the Glidewire in place. A 13-Welsh ureteral reentry sheath with 11-Welsh obturator was then easily advanced over the Glidewire and positioned so that the proximal end of the reentry sheath was in the mid ureter. The obturator and Glidewire were removed. Ureteroscopy was performed using the flexible ureteroscope. The most distal ureteral calculus was identified and broken down into multiple smaller fragments using the 350 fiber and the holmium laser at a setting of 800 mJ and 6 cps. The calculus fragments were then removed from the ureter using a 1.9-Welsh Nitinol stone basket. The second calculus which was smaller in size was also broken down to a size that could be extracted through the reentry sheath. It was trapped in a stone basket and removed. At completion of the procedure only some sand remained in the ureter. Due to the ease in placement of the reentry sheath and minimal edema around the ureteral calculi was elected not to place a double-J catheter. The ureteroscope and reentry sheath were withdrawn and the procedure was terminated. Patient tolerated procedure well and left the operative room awake and in satisfactory condition. He will be discharged later today if he is comfortable.
[2018-11-16 17:13] VITALS: BP 150/70; PULSE 90
--- NOTE | 2018-11-17 08:22 | FL ---
Fluoroscopy History: Cysto with litho Cysto with litotripsy. 12 sec fluoro time. [address] Hernández.
== END 2018-11-16 17:18 | disposition left against medical advice (07) | DRG 669 ==
LOC: EC 05:20 → 4SSUR 05:59 → OBSVTOIN 09:50
PROVIDERS: ADMIT Urology; ATTEND Urology
PROC: 0TC78ZZ Extirpation of Matter from Left Ureter, Via Natural or Artificial Opening Endoscopic (ICD-10-PCS; principal; 2018-11-16 07:30)
DX: N13.6 Pyonephrosis (principal); K50.90 Crohn's disease, unspecified, without complications; R31.0 Gross hematuria; F17.200 Nicotine dependence, unspecified, uncomplicated; F31.9 Bipolar disorder, unspecified; F41.9 Anxiety disorder, unspecified; F90.9 Attention-deficit hyperactivity disorder, unspecified type; K21.9 Gastro-esophageal reflux disease without esophagitis; G89.29 Other chronic pain; J30.2 Other seasonal allergic rhinitis; M54.9 Dorsalgia, unspecified; Z79.899 Other long term (current) drug therapy; Z86.010 Personal history of colon polyps; Z87.11 Personal history of peptic ulcer disease; Z87.442 Personal history of urinary calculi; Z90.49 Acquired absence of other specified parts of digestive tract; Z88.5 Allergy status to narcotic agent; Z91.041 Radiographic dye allergy status
CPT/HCPCS: 36415; 80048; 82365; 85025; 96361; 96374; 96375; 99284

== ENCOUNTER 2018-11-20 23:20 | Inpatient (IN) | payer MEDICARE ==
[2018-11-21] MEDS ORDERED: ONDANSETRON 4 MG/2 ML VIAL IVP STA (00:12)
[2018-11-21] MEDS ORDERED: SODIUM CHLORIDE 0.9% 1,000 ML IV STA (00:12)
[2018-11-21] MEDS ORDERED: MORPHINE SULFATE 4 MG/ML SYRINGE IV STA ×3 (00:12→02:40)
--- NOTE | 2018-11-21 00:28 | ED ---
General Adult HPI - General Chief complaint: Urogenital Stated complaint: Male Time Seen by Provider: 11/20/18 23:23 Source: patient Mode of arrival: EMS Limitations: no limitations - History of Present Illness Initial comments: This patient's 52-year-old man who presents to be evaluated for left flank pain, hematuria, as well as nausea and vomiting. The patient states that on November 16, he underwent cystoscopy with lithotripsy. Patient had 2 left ureteral stones that were removed. The results of the procedure were good and the patient did not require ureteral stent. The patient went home and states that he had been doing better until early today. Patient noted that he was having hematuria and then had left flank pain and a feeling of urinary urgency. After. He did pass some blood clots with urine. He phoned the urologist who felt that he was having some clotting and they recommended that he increase his fluid intake. The patient states that he then had increasing pain and vomiting. He states that his home medications were not managing the pain. He takes [place] 10 for chronic abdominal pain related to his ileostomy. Patient denies other symptoms, including no fevers. He has not had a change in output from his stoma. Onset/Timin -: days(s) Location: left (flank) Radiation: non-radiation Severity scale (1-10): 10 Quality: aching Consistency: colicky Improves with: none Worsens with: none Associated Symptoms: other (Hematuria) Treatments Prior to Arrival: none - Related Data Home Medications Medication Instructions Recorded Confirmed HYDROcodone/APAP 10-325MG [[place] 1 tab PO Q6H PRN 03/17/14 11/21/18 10] ALPRAZolam [Xanax] 1 mg PO BID PRN 05/22/15 11/21/18 Albuterol Inhaler [Ventolin Hfa 2 puff INHALATION RT-Q4H PRN 11/15/18 11/21/18 Inhaler] Diazepam [Valium] 10 mg PO BID PRN 11/21/18 11/21/18 Previous Rx's Medication Instructions Recorded Cephalexin [Keflex] 500 mg PO QID #40 cap 11/15/18 Tamsulosin [Flomax] 0.4 mg PO DAILY #14 cap 11/15/18 Allergies Allergy/AdvReac Type Severity Reaction Status Date / Time Iodinated Contrast- Oral and Allergy Unknown Verified 11/21/18 08:45 IV Dye [Iodinated Contrast Media - IV Dye] ketorolac tromethamine Allergy Unknown Verified 11/21/18 08:45 [From Toradol] Review of Systems ROS Statement: Those systems with pertinent positive or pertinent negative responses have been documented in the HPI. ROS Other: All systems not noted in ROS Statement are negative. Constitutional: Denies: fever, chills Respiratory: Denies: cough, dyspnea Cardiovascular: Denies: chest pain Gastrointestinal: Reports: as per HPI, abdominal pain (Left flank), nausea, vomiting. Denies: diarrhea, constipation, hematemesis, melena, hematochezia Genitourinary: Reports: frequency, hematuria. Denies: dysuria, discharge, testicular pain, testicular mass Musculoskeletal: Denies: back pain Skin: Denies: rash Neurological: Denies: headache, weakness Past Medical History Past Medical History: GERD/Reflux Additional Past Medical History / Comment(s): Nephrolithiasis, hematuria, crohn's disease/multiple resections and ileostomy, gastric ulcer, colon polyps, anemia, DDD, chronic back pain, numbness/tingling bilateral legs, sinus problems/seasonal allergies, recent intermittent chest pain and is to have stress test 11/25/17. History of Any Multi-Drug Resistant Organisms: None Reported Past Surgical History: Bowel Resection, Hernia Repair Additional Past Surgical History / Comment(s): cystoscopies/L ureteroscopy/lithotripsey/double J catheter insertion and removal, ureteral stent, multiple bowel resections/ileostomy, colonoscopies, incisional hernia repair, epidural injections to back. Past Anesthesia/Blood Transfusion Reactions: No Reported Reaction Additional Past Anesthesia/Blood Transfusion Reaction / Comment(s): Pt received blood in 1979 without reaction. Past Psychological History: ADD/ADHD, Anxiety, Bipolar, Depression Smoking Status: Current every day smoker Past Alcohol Use History: None Reported Past Drug Use History: None Reported - Past Family History Father Additional Family Medical History / Comment(s): Father is . He had a brain tumor. Pt unsure if cancerous. General Exam General appearance: alert, in no apparent distress Head exam: Present: atraumatic, normocephalic Eye exam: Present: normal appearance. Absent: scleral icterus, conjunctival injection Respiratory exam: Present: normal lung sounds bilaterally. Absent: respiratory distress, wheezes, rales, rhonchi, stridor Cardiovascular Exam: Present: regular rate, normal rhythm, normal heart sounds. Absent: systolic murmur, diastolic murmur, rubs, gallop GI/Abdominal exam: Present: soft, mass, other (There is an ostomy left-sided abdomen which has a small amount of liquid stool in the bag. Normal appearance.). Absent: distended, tenderness, guarding, rebound, rigid Extremities exam: Present: normal inspection, normal capillary refill. Absent: pedal edema, calf tenderness Back exam: Present: normal inspection. Absent: CVA tenderness (R), CVA tenderness (L) Neurological exam: Present: alert Skin exam: Present: warm, dry, intact, normal color. Absent: rash Course Vital Signs 11/20/18 11/21/18 11/21/18 23:24 03:12 03:24 Temperature 98.9 F Pulse Rate 93 77 Respiratory 18 20 Rate Blood Pressure 105/72 151/85 O2 Sat by Pulse 97 96 Oximetry 11/21/18 05:05 Temperature Pulse Rate 69 Respiratory 18 Rate Blood Pressure 159/90 O2 Sat by Pulse 97 Oximetry Medical Decision Making - Medical Decision Making Patient's 52-year-old man with intractable left flank pain. Attempted symptom management with only minimal improvement in symptoms. Patient did request repeat computed tomography scan and initially I attempted to decline this but given his continued symptoms and very little improvement with analgesia, computed tomography scan is ordered and does show a left-sided hydronephrosis. Case is discussed with Dr. Hernández who will see patient in the morning. - Lab Data Result diagrams: 11/21/18 00:30 11/21/18 00:30 Lab Results 11/21/18 11/21/18 11/21/18 Range/Units 00:30 00:30 01:20 WBC 21.7 H (3.8-10.6) k/uL RBC 5.23 (4.30-5.90) m/uL Hgb 15.3 (13.0-17.5) gm/dL Hct 46.3 (39.0-53.0) % MCV 88.6 (80.0-100.0) fL MCH 29.2 (25.0-35.0) pg MCHC 33.0 (31.0-37.0) g/dL RDW 13.3 (11.5-15.5) % Plt Count 246 (150-450) k/uL Neutrophils % 81 % Lymphocytes % 10 % Monocytes % 6 % Eosinophils % 1 % Basophils % 1 % Neutrophils # 17.5 H (1.3-7.7) k/uL Lymphocytes # 2.1 (1.0-4.8) k/uL Monocytes # 1.2 H (0-1.0) k/uL Eosinophils # 0.1 (0-0.7) k/uL Basophils # 0.1 (0-0.2) k/uL Sodium 136 L (137-145) mmol/L Potassium 4.8 (3.5-5.1) mmol/L Chloride 103 (98-107) mmol/L Carbon Dioxide 19 L (22-30) mmol/L Anion Gap 14 mmol/L BUN 19 (9-20) mg/dL Creatinine 1.22 (0.66-1.25) mg/dL Est GFR (CKD-EPI)AfAm 80 (>60 ml/min/1.73 sqM) Est GFR (CKD-EPI)NonAf 69 (>60 ml/min/1.73 sqM) Glucose 108 H (74-99) mg/dL Calcium 9.6 (8.4-10.2) mg/dL Total Bilirubin 1.0 (0.2-1.3) mg/dL AST 51 (17-59) U/L ALT 51 (21-72) U/L Alkaline Phosphatase 99 (38-126) U/L Total Protein 8.3 H (6.3-8.2) g/dL Albumin 4.8 (3.5-5.0) g/dL Amylase 82 (30-110) U/L Lipase 128 (23-300) U/L Urine Color Dark Brown Urine Appearance Bloody (Clear) Urine RBC >182 H (0-5) /hpf Urine WBC 178 H (0-5) /hpf Ur Squamous Epith Cells 3 (0-4) /hpf Urine Bacteria Rare H (None) /hpf Urine Mucus Moderate H (None) /hpf Disposition Clinical Impression: Intractable pain, Urinary tract infection Disposition: ADMITTED IP TO THIS HOSP Condition: Fair
[2018-11-21 00:51] LABS: Basophils # (A) 0.1 k/uL (0-0.2); Basophils % (A) 1 %; Eosinophils # (A) 0.1 k/uL (0-0.7); Eosinophils % (A) 1 %; HCT 46.3 % (39.0-53.0); HGB 15.3 gm/dL (13.0-17.5); Lymphocytes # (A) 2.1 k/uL (1.0-4.8); Lymphocytes % (A) 10 %; MCH 29.2 pg (25.0-35.0); MCV 88.6 fL (80.0-100.0); Mean Platelet Volume 8.1; Monocytes # (A) 1.2 k/uL (0-1.0); Monocytes % (A) 6 %; Neutrophils # (A) 17.5 k/uL (1.3-7.7); Neutrophils % (A) 81 %; Platelet Count 246 k/uL (150-450); RBC 5.23 m/uL (4.30-5.90); RDW 13.3 % (11.5-15.5); WBC 21.7 k/uL (3.8-10.6)
[2018-11-21 01:12] LABS: Albumin 4.8 g/dL (3.5-5.0); Calcium 9.6 mg/dL (8.4-10.2); Total Protein 8.3 g/dL (6.3-8.2)
[2018-11-21 01:30] LABS: Potassium 4.8 mmol/L (3.5-5.1)
[2018-11-21 01:37] LABS: Bacteria,Urine Rare /hpf; Mucus,Urine Moderate /hpf; Squamous Epithelial Cell,Urine 3 /hpf (0-4); WBC,Urine 178 /hpf (0-5)
[2018-11-21 01:42] LABS: Appearance,Urine Bloody (Clear); Color,Urine Dark Brown
[2018-11-21 01:43] LABS: RBC,Urine >182 /hpf (0-5)
--- NOTE | 2018-11-21 02:02 | XR ---
EXAM: XR Abdomen, 1 View CLINICAL HISTORY: ITS.REASON XR Reason: abdominal pain TECHNIQUE: Frontal upright view of the abdomen/pelvis. COMPARISON: Abdominal radiographs 11/18/2017 FINDINGS: Gastrointestinal tract: Paucity of small and large bowel gas suggesting fluid-filled bowel. No evidence of bowel obstruction or pneumoperitoneum. Organs: Right upper quadrant surgical clips suggesting previous cholecystectomy. No radiopaque renal calculi. No abnormal abdominal- pelvic calcifications. Bones/joints: Mild lumbar scoliosis, convex to the right. Mild lumbar spine degenerative changes. IMPRESSION: No radiographic evidence of acute abdominal disease or bowel obstruction.
[2018-11-21] MEDS ORDERED: LEVOFLOXACIN 750MG-D5W PMX 750 MG in DEXTROSE/WATER 1 150ML.BAG IVPB STA (02:16)
[2018-11-21] MEDS ORDERED: LEVOFLOXACIN 750MG-D5W PMX 750 MG in DEXTROSE/WATER 1 150ML.BAG IVPB ONE ×2 (02:20→02:47)
[2018-11-21] MEDS ORDERED: NALOXONE 0.4 MG/ML 1 ML VIAL IV PRN (02:41)
[2018-11-21] MEDS ORDERED: ONDANSETRON 4 MG/2 ML VIAL IVP PRN (02:41)
[2018-11-21] MEDS ORDERED: ALBUTEROL NEBULIZED 2.5 MG/3 ML INHALATION PRN ×2 (02:48→11:45)
[2018-11-21] MEDS: MORPHINE SULFATE 4 MG/ML SYRINGE IV PRN ×2 (03:07→07:15)
[2018-11-21] MEDS: HYDROcodone/APAP 10-325MG 1 EACH TAB PO SCH ×3 (04:13→18:15)
[2018-11-21] MEDS ORDERED: HYDROmorphone 1 MG/ML 1 ML SYRINGE IVP STA (04:51)
[2018-11-21] MEDS: SODIUM CHLORIDE 0.9% 1,000 ML IV SCH ×3 (05:00→11:35)
--- NOTE | 2018-11-21 05:36 | CT ---
EXAM: CT Abdomen and Pelvis Without Intravenous Contrast CLINICAL HISTORY: : left flank pain TECHNIQUE: Axial computed tomography images of the abdomen and pelvis without intravenous contrast. DLP is 583.6 mGy-cm. This CT exam was performed using one or more of the following dose reduction techniques: automated exposure control, adjustment of the mA and/or kV according to patient size, and/or use of iterative reconstruction technique. COMPARISON: No relevant prior studies available. FINDINGS: Lung bases: Unremarkable. No mass. No consolidation. ABDOMEN: Liver: Unremarkable. Gallbladder and bile ducts: Surgical absence the gallbladder. No ductal dilation. Pancreas: Unremarkable. No ductal dilation. Spleen: Unremarkable. No splenomegaly. Adrenals: Unremarkable. No mass. Kidneys and ureters: There is worsening left hydronephrosis and hydroureter with perinephric stranding and increased periureteral stranding. The previously identified ureteral stones are not seen. There is increased density in the ureter this may represent thrombus. The bladder is decompressed is no evidence for stones in the bladder there is prominence of the prostate gland Stomach and bowel: Unremarkable. No obstruction. No mucosal thickening. Left-sided colostomy. Stable appearance to right-sided abdominal wall hernia with no evidence for incarceration or obstruction Bladder: The urinary bladder is decompressed. No stones visualized in the bladder the patient prostate gland is promine Intraperitoneal space: Unremarkable. No free air. No significant fluid collection. Bones/joints: No acute fracture. No dislocation. Soft tissues: Unremarkable. Vasculature: Unremarkable. No abdominal aortic aneurysm. Lymph nodes: Stable appearance to some small periaortic lymph nodes. IMPRESSION: Worsening left hydronephrosis and hydroureter although no stones are identified. Previously identified stones not seen in the ureter or in the bladder. There is dense material within the ureter raising the possibility of thrombus. Clinical correlation is required
[2018-11-21 05:54] VITALS: BMI 33.5
[2018-11-21] MEDS: ALPRAZolam 1 MG TAB PO SCH ×2 (07:14→15:35)
[2018-11-21] MEDS ORDERED: FAMOTIDINE 20 MG TAB PO SCH (09:00)
[2018-11-21] MEDS ORDERED: TAMSULOSIN 0.4 MG CAP.ER.24H PO SCH (09:00)
[2018-11-21] MEDS: HYDROmorphone 0.5 MG/0.5 ML SYRINGE IVP PRN ×3 (09:19→17:27)
--- NOTE | 2018-11-21 09:34 | P.GSHP ---
History of Present Illness H&P Date: 11/21/18 Chief Complaint: Left flank pain The patient is a 52-year-old male with a history of urolithiasis admitted through the emergency room with severe left flank pain and gross hematuria. He had been admitted on 11/16 with left flank pain and a computed tomography scan of the abdomen and pelvis at that time identified a 4-5 mm obstructive calculus in the proximal ureter and a second smaller calculus just superior to to the obstructive calculus. I performed left ureteroscopy with lithotripsy later in the day. At that time I did not feel that any residual fragments remained. The patient was adamant about not having a double-J catheter following the procedure and because the ureteroscopy was uncomplicated a double-J catheter was not left. The patient left the hospital AMA later in the evening. He says that he had some blood in his urine the following day but the next 2 days he had no pain or bleeding. Yesterday morning he said he felt well until early afternoon when he began experiencing left flank pain and gross hematuria. He says that he began passing clots. He complains of urgency and urinary frequency. I spoke with him by phone late in the afternoon. His pain worsened and he came to the emergency room where he was evaluated. His white blood count was 21,700. BUN/creatinine was 19/1.22. A computed tomography scan of the abdomen and pelvis without IV contrast was performed and was interpreted as showing left hydronephrosis but no evidence of calculus. I reviewed the CT scan this morning and the patient does appear to have a 1.5 mm calculus in the distal left ureter at the level of the bladder wall. There may also be some blood clot present within the left ureter. The patient continues to have left flank pain and gross hematuria. He was nauseated and had vomiting yesterday but is hungry this morning. The remainder of the history is unchanged from that noted on 11/16. - Constitutional Constitutional: Denies chills, Denies fever - Cardiovascular Cardiovascular: Denies shortness of breath - Gastrointestinal Gastrointestinal: Reports nausea - Genitourinary (Male) Genitourinary: Reports as per HPI Past Medical History Past Medical History: GERD/Reflux Additional Past Medical History / Comment(s): Nephrolithiasis, hematuria, crohn's disease/multiple resections and ileostomy, gastric ulcer, colon polyps, anemia, DDD, chronic back pain, numbness/tingling bilateral legs, sinus problems/seasonal allergies, recent intermittent chest pain and is to have stress test 11/25/17. History of Any Multi-Drug Resistant Organisms: None Reported Past Surgical History: Bowel Resection, Hernia Repair Additional Past Surgical History / Comment(s): cystoscopies/L ureteroscopy/lithotripsey/double J catheter insertion and removal, ureteral stent, multiple bowel resections/ileostomy, colonoscopies, incisional hernia repair, epidural injections to back. Past Anesthesia/Blood Transfusion Reactions: No Reported Reaction Additional Past Anesthesia/Blood Transfusion Reaction / Comment(s): Pt received blood in 1979 without reaction. Past Psychological History: ADD/ADHD, Anxiety, Bipolar, Depression Smoking Status: Current every day smoker Past Alcohol Use History: None Reported Past Drug Use History: None Reported - Past Family History Father Additional Family Medical History / Comment(s): Father is . He had a brain tumor. Pt unsure if cancerous. Medications and Allergies Home Medications Medication Instructions Recorded Confirmed Type HYDROcodone/APAP 10-325MG [[place] 1 tab PO Q6H PRN 03/17/14 11/21/18 History 10] ALPRAZolam [Xanax] 1 mg PO BID PRN 05/22/15 11/21/18 History Albuterol Inhaler [Ventolin Hfa 2 puff INHALATION RT-Q4H PRN 11/15/18 11/21/18 History Inhaler] Cephalexin [Keflex] 500 mg PO QID #40 cap 11/15/18 11/21/18 Rx Tamsulosin [Flomax] 0.4 mg PO DAILY #14 cap 11/15/18 11/21/18 Rx Diazepam [Valium] 10 mg PO BID PRN 11/21/18 11/21/18 History Allergies Allergy/AdvReac Type Severity Reaction Status Date / Time Iodinated Contrast- Oral and Allergy Unknown Verified 11/21/18 08:45 IV Dye [Iodinated Contrast Media - IV Dye] ketorolac tromethamine Allergy Unknown Verified 11/21/18 08:45 [From Toradol] Surgical - Exam Vital Signs Pulse Resp BP Pulse Ox 93 18 105/72 97 11/20/18 23:24 11/20/18 23:24 11/20/18 23:24 11/20/18 23:24 - General well developed, well nourished, moderate pain - ENT no hearing loss - Neck no masses, no lymphadectomy - Respiratory normal respiratory effort - Abdomen Abdomen: tender (Suprapubic and left lower quadrant) - Genitourinary normal penis with no external lesions, testicles non-tender Results - Labs 11/21/18 00:30 11/21/18 00:30 Abnormal Lab Results - Last 24 Hours (Table) 11/21/18 11/21/18 11/21/18 Range/Units 00:30 00:30 01:20 WBC 21.7 H (3.8-10.6) k/uL Neutrophils # 17.5 H (1.3-7.7) k/uL Monocytes # 1.2 H (0-1.0) k/uL Sodium 136 L (137-145) mmol/L Carbon Dioxide 19 L (22-30) mmol/L Glucose 108 H (74-99) mg/dL Total Protein 8.3 H (6.3-8.2) g/dL Urine RBC >182 H (0-5) /hpf Urine WBC 178 H (0-5) /hpf Urine Bacteria Rare H (None) /hpf Urine Mucus Moderate H (None) /hpf Diabetes panel 11/21/18 Range/Units 00:30 Sodium 136 L (137-145) mmol/L Potassium 4.8 (3.5-5.1) mmol/L Chloride 103 (98-107) mmol/L Carbon Dioxide 19 L (22-30) mmol/L BUN 19 (9-20) mg/dL Creatinine 1.22 (0.66-1.25) mg/dL Glucose 108 H (74-99) mg/dL Calcium 9.6 (8.4-10.2) mg/dL AST 51 (17-59) U/L ALT 51 (21-72) U/L Alkaline Phosphatase 99 (38-126) U/L Total Protein 8.3 H (6.3-8.2) g/dL Albumin 4.8 (3.5-5.0) g/dL Calcium panel 11/21/18 Range/Units 00:30 Calcium 9.6 (8.4-10.2) mg/dL Albumin 4.8 (3.5-5.0) g/dL Pituitary panel 11/21/18 Range/Units 00:30 Sodium 136 L (137-145) mmol/L Potassium 4.8 (3.5-5.1) mmol/L Chloride 103 (98-107) mmol/L Carbon Dioxide 19 L (22-30) mmol/L BUN 19 (9-20) mg/dL Creatinine 1.22 (0.66-1.25) mg/dL Glucose 108 H (74-99) mg/dL Calcium 9.6 (8.4-10.2) mg/dL Adrenal panel 11/21/18 Range/Units 00:30 Sodium 136 L (137-145) mmol/L Potassium 4.8 (3.5-5.1) mmol/L Chloride 103 (98-107) mmol/L Carbon Dioxide 19 L (22-30) mmol/L BUN 19 (9-20) mg/dL Creatinine 1.22 (0.66-1.25) mg/dL Glucose 108 H (74-99) mg/dL Calcium 9.6 (8.4-10.2) mg/dL Total Bilirubin 1.0 (0.2-1.3) mg/dL AST 51 (17-59) U/L ALT 51 (21-72) U/L Alkaline Phosphatase 99 (38-126) U/L Total Protein 8.3 H (6.3-8.2) g/dL Albumin 4.8 (3.5-5.0) g/dL Assessment and Plan (1) Left ureteral calculus Narrative/Plan: The patient's left flank pain and gross hematuria are most likely related to a small (1.5 mm) calculus at the level of the bladder wall. The likelihood of spontaneous passage is high and it is likely that the calculus fragment did not migrate to this area until sometime yesterday afternoon when the patient developed left flank pain. Patient's pain will be controlled with narcotics and he will be given a trial of Toradol as it's questionable as to whether or not he actually has a true ALLERGY to this. If his pain persists cystoscopy with left ureteroscopy may be considered tomorrow. Current Visit: No Status: Acute Code(s): N20.1 - CALCULUS OF URETER SNOMED Code(s): 22355608
[2018-11-21] MEDS: KETOROLAC 30 MG/ML 1 ML VIAL IVP SCH ×2 (11:27→17:13)
[2018-11-21 14:37] VITALS: BP 127/75; PULSE 88; RESP 16; TEMP 97.9
--- NOTE | 2018-11-21 15:00 | P.CONS ---
History of Present Illness - Reason for Consult Consult date: 11/21/18 Medical management - Chief Complaint Left flank pain/hematuria - History of Present Illness 52-year-old male patient with past medical history of ureterolithiasis presents to ED with complaint of left flank pain and hematuria; patient was recently admitted to the hospital at which time CAT scan was done showing 4-5 mm obstructing stone in the proximal ureter and a smaller one above the obstructing stone; patient underwent ureteroscopy and lithotripsy during that admission; patient refused double-J catheter after the procedure and left AMA Following the patient did have some clots and bleeding which continued to worsen for next 2 days necessitating patient to return to ED; computed tomography scan in ED showed left hydronephrosis with 1.5 mm calculus and distal left ureter at the level of bladder wall; white blood count was found to be over 21,000 with a B UN/creatinine of 19/.22 Review of Systems ROS Other: All systems not noted in ROS Statement are negative. Constitutional: Denies: fever, chills Respiratory: Denies: cough, dyspnea Cardiovascular: Denies: chest pain Gastrointestinal: Reports: as per HPI, abdominal pain (Left flank), nausea, vomiting. Denies: diarrhea, constipation, hematemesis, melena, hematochezia Genitourinary: Reports: frequency, hematuria. Denies: dysuria, discharge, testicular pain, testicular mass Musculoskeletal: Denies: back pain Skin: Denies: rash Neurological: Denies: headache, weakness Past Medical History Past Medical History: GERD/Reflux Additional Past Medical History / Comment(s): Nephrolithiasis, hematuria, crohn's disease/multiple resections and ileostomy, gastric ulcer, colon polyps, anemia, DDD, chronic back pain, numbness/tingling bilateral legs, sinus problems/seasonal allergies, recent intermittent chest pain and is to have stress test 11/25/17. History of Any Multi-Drug Resistant Organisms: None Reported Past Surgical History: Bowel Resection, Hernia Repair Additional Past Surgical History / Comment(s): cystoscopies/L ureteroscopy/lithotripsey/double J catheter insertion and removal, ureteral stent, multiple bowel resections/ileostomy, colonoscopies, incisional hernia repair, epidural injections to back. Past Anesthesia/Blood Transfusion Reactions: No Reported Reaction Additional Past Anesthesia/Blood Transfusion Reaction / Comm: Pt received blood in 1979 without reaction. Past Psychological History: ADD/ADHD, Anxiety, Bipolar, Depression Smoking Status: Current every day smoker Past Alcohol Use History: None Reported Past Drug Use History: None Reported - Past Family History Father Additional Family Medical History / Comment(s): Father is . He had a brain tumor. Pt unsure if cancerous. Medications and Allergies Home Medications Medication Instructions Recorded Confirmed Type HYDROcodone/APAP 10-325MG [[place] 1 tab PO Q6H PRN 03/17/14 11/21/18 History 10] ALPRAZolam [Xanax] 1 mg PO BID PRN 05/22/15 11/21/18 History Albuterol Inhaler [Ventolin Hfa 2 puff INHALATION RT-Q4H PRN 11/15/18 11/21/18 History Inhaler] Cephalexin [Keflex] 500 mg PO QID #40 cap 11/15/18 11/21/18 Rx Tamsulosin [Flomax] 0.4 mg PO DAILY #14 cap 11/15/18 11/21/18 Rx Diazepam [Valium] 10 mg PO BID PRN 11/21/18 11/21/18 History Allergies Allergy/AdvReac Type Severity Reaction Status Date / Time Iodinated Contrast- Oral and Allergy Unknown Verified 11/21/18 08:45 IV Dye [Iodinated Contrast Media - IV Dye] ketorolac tromethamine Allergy Unknown Verified 11/21/18 08:45 [From Toradol] Physical Exam Vitals: Vital Signs Temp Pulse Pulse Resp BP BP Pulse Ox 11/21/18 12:20 97.9 F 88 16 127/75 93 L 11/21/18 07:21 82 155/83 95 11/21/18 05:30 98.2 F 82 18 192/73 96 11/21/18 05:05 69 18 159/90 97 11/21/18 03:24 77 20 151/85 96 11/21/18 03:12 98.9 F 11/20/18 23:24 93 18 105/72 97 Intake and Output 11/20/18 11/21/18 11/21/18 22:59 06:59 14:59 Other: Voiding Method Toilet # Voids 1 3 # Bowel Movements 0 Weight 108.862 kg PHYSICAL EXAMINATION: GENERAL: The patient is alert and oriented x3, not in any acute distress. Well developed, well nourished. HEENT: Pupils are round and equally reacting to light. EOMI. No scleral icterus. No conjunctival pallor. Normocephalic, atraumatic. No pharyngeal erythema. No thyromegaly. CARDIOVASCULAR: S1 and S2 present. No murmurs, rubs, or gallops. PULMONARY: Chest is clear to auscultation, no wheezing or crackles. ABDOMEN: Soft, nontender, nondistended, normoactive bowel sounds. No palpable organomegaly. MUSCULOSKELETAL: No joint swelling or deformity. EXTREMITIES: No cyanosis, clubbing, or pedal edema. NEUROLOGICAL: Gross neurological examination did not reveal any focal deficits. SKIN: No rashes. Results CBC & Chem 7: 11/21/18 00:30 11/21/18 00:30 Labs: Abnormal Lab Results - Last 24 Hours (Table) 11/21/18 11/21/18 11/21/18 Range/Units 00:30 00:30 01:20 WBC 21.7 H (3.8-10.6) k/uL Neutrophils # 17.5 H (1.3-7.7) k/uL Monocytes # 1.2 H (0-1.0) k/uL Sodium 136 L (137-145) mmol/L Carbon Dioxide 19 L (22-30) mmol/L Glucose 108 H (74-99) mg/dL Total Protein 8.3 H (6.3-8.2) g/dL Urine RBC >182 H (0-5) /hpf Urine WBC 178 H (0-5) /hpf Urine Bacteria Rare H (None) /hpf Urine Mucus Moderate H (None) /hpf Microbiology - Last 24 Hours (Table) 11/21/18 01:20 Urine Culture - Preliminary Urine,Voided Assessment and Plan Assessment: 1. Obstructing left ureteral stone - Urology is following and monitoring for possible spontaneous passage of the calculus; plan is possible cystoscopy with left ureteroscopy tomorrow if pain persists - Pain controlled with IV Toradol 2. Gross hematuria/UTI - Patient was given a dose of Levaquin 750 mg 1; urine cultures are pending; we will continue with Levaquin till final urine culture and sensitivity is available 3. Uncontrolled pain - Patient currently takes IV morphine 4 mg every 4 hours when necessary; Toradol 30 mg IV every 6 hours; Dilaudid 0.5 mg IV every 4 hours and when necessary [place] - We will simplify. Regimen by continuing oral [place] with IV Dilaudid at 1 mg every 4 hours when necessary 4. DVT prophylaxis; early ambulation CODE STATUS; full code Time with Patient: Greater than 30
[2018-11-22] MEDS ORDERED: LEVOFLOXACIN 750MG-D5W PMX 750 MG in DEXTROSE/WATER 1 150ML.BAG IVPB SCH (05:00)
--- NOTE | 2018-11-22 09:42 | P.DS ---
Providers Date of admission: 11/21/18 02:41 Expected date of discharge: 11/21/18 Attending physician: Michael Hernández Consults: 11/21/18 02:45 Consult Physician Routine Consulting Provider: Michael Hernández Consult Reason/Comments: Renal colic. Hydronephrosis Do you want consulting provider notified?: Already Contacted 11/21/18 13:41 Consult Physician Routine Consulting Provider: Shima Hussein Consult Reason/Comments: medical management Do you want consulting provider notified?: Yes Primary care physician: Tigist Barrientos - Discharge Diagnosis(es) (1) Left ureteral calculus The patient has a history of left hydronephrosis secondary to a 5 mm proximal left ureteral calculus which was treated with ureteroscopy and lithotripsy on 11/16. The patient was discharged later the day and was free of pain and had clear urine of until the afternoon of 11/20. He developed severe left flank pain and gross hematuria. He was seen in the emergency room and a computed tomography scan without contrast showed left hydronephrosis and what appeared to be blood clot present within the left ureter. The patient was admitted for the purpose of pain control. He passed several clots during the day but by late afternoon his pain was minimal and his urine was clear. It's unclear whether the patient had any residual calculus fragment in the left ureter as his pain could have been entirely related to passage of blood clots. The patient was discharged later on the date of admission. Status: Acute Patient Condition at Discharge: Good Plan - Discharge Summary Discharge Rx Participant: No New Discharge Prescriptions: No Action HYDROcodone/APAP 10-325MG [[place] 10] 1 tab PO Q6H PRN PRN Reason: Pain ALPRAZolam [Xanax] 1 mg PO BID PRN PRN Reason: Anxiety Albuterol Inhaler [Ventolin Hfa Inhaler] 2 puff INHALATION RT-Q4H PRN PRN Reason: Shortness Of Breath Tamsulosin [Flomax] 0.4 mg PO DAILY #14 cap Cephalexin [Keflex] 500 mg PO QID #40 cap Diazepam [Valium] 10 mg PO BID PRN PRN Reason: Anxiety Discharge Medication List HYDROcodone/APAP 10-325MG [[place] 10] 1 tab PO Q6H PRN 03/17/14 [History] ALPRAZolam [Xanax] 1 mg PO BID PRN 12/28/15 [History] Albuterol Inhaler [Ventolin Hfa Inhaler] 2 puff INHALATION RT-Q4H PRN 11/15/18 [History] Tamsulosin [Flomax] 0.4 mg PO DAILY #14 cap 11/15/18 [Rx] Diazepam [Valium] 10 mg PO BID PRN 11/21/18 [History] Follow up Appointment(s)/Referral(s): Tigist Barrientos MD [Primary Care Provider] - 2 Weeks Michael Hernández MD [STAFF PHYSICIAN] - 1 Week Discharge Disposition: HOME SELF-CARE
== END 2018-11-21 19:46 | disposition home or self-care (01) | DRG 694 ==
LOC: EC 23:20 → 4MS4W 11-21 02:41
PROVIDERS: ADMIT Urology; ATTEND Urology
DX: N13.2 Hydronephrosis with renal and ureteral calculous obstruction (principal); K50.90 Crohn's disease, unspecified, without complications; R31.0 Gross hematuria; M54.9 Dorsalgia, unspecified; G89.29 Other chronic pain; F41.9 Anxiety disorder, unspecified; F90.9 Attention-deficit hyperactivity disorder, unspecified type; F31.9 Bipolar disorder, unspecified; K21.9 Gastro-esophageal reflux disease without esophagitis; F17.210 Nicotine dependence, cigarettes, uncomplicated; Z71.6 Tobacco abuse counseling; R20.2 Paresthesia of skin; Z79.899 Other long term (current) drug therapy; Z87.442 Personal history of urinary calculi; Z93.2 Ileostomy status; Z87.11 Personal history of peptic ulcer disease; Z90.49 Acquired absence of other specified parts of digestive tract; Z86.010 Personal history of colon polyps; Z98.890 Other specified postprocedural states; Z88.8 Allergy status to other drugs, medicaments and biological substances; Z91.041 Radiographic dye allergy status; Z91.048 Other nonmedicinal substance allergy status; Z84.89 Family history of other specified conditions
CPT/HCPCS: 36415; 74018; 74176; 80053; 81001; 82150; 83690; 85025; 87086; 96361; 96365; 96366; 96375; 96376; 99285

== ENCOUNTER 2018-11-24 01:29 | Emergency (ER) | payer MEDICARE ==
[2018-11-24 01:49] VITALS: BP 157/86; PULSE 86; RESP 18; TEMP 98
[2018-11-24] MEDS ORDERED: SODIUM CHLORIDE 0.9% 2,000 ML IV STA (02:33)
[2018-11-24] MEDS ORDERED: ONDANSETRON 4 MG/2 ML VIAL IVP STA (02:33)
[2018-11-24] MEDS ORDERED: MORPHINE SULFATE 4 MG/ML SYRINGE IVP STA (02:57)
--- NOTE | 2018-11-24 03:04 | ED ---
Abdominal Pain HPI - General Chief Complaint: Abdominal Pain Stated Complaint: Dx Kidney Stones, Hematuria Time Seen by Provider: 11/24/18 02:32 Source: patient Mode of arrival: ambulatory Limitations: no limitations - History of Present Illness Initial Comments: Anklejass a 52-year-old gentleman with extensive past medical history most significant for recent left-sided kidney stone requiring intervention and subsequent urinary tract infection. Patient reports that since and continues been having hematuria. He reports that his pain has been uncontrolled he has pain in his bladder he feels like he cannot urinate. Patient has been admitted 2 times in the past 2 weeks for intractable pain secondary to stones and urinary infection. - Related Data Home Medications Medication Instructions Recorded Confirmed HYDROcodone/APAP 10-325MG [[place] 1 tab PO Q6H PRN 03/17/14 11/21/18 10] ALPRAZolam [Xanax] 1 mg PO BID PRN 05/22/15 11/21/18 Albuterol Inhaler [Ventolin Hfa 2 puff INHALATION RT-Q4H PRN 11/15/18 11/21/18 Inhaler] Diazepam [Valium] 10 mg PO BID PRN 11/21/18 11/21/18 Previous Rx's Medication Instructions Recorded Tamsulosin [Flomax] 0.4 mg PO DAILY #14 cap 11/15/18 Allergies Allergy/AdvReac Type Severity Reaction Status Date / Time Iodinated Contrast- Oral and Allergy Unknown Verified 11/24/18 01:49 IV Dye [Iodinated Contrast Media - IV Dye] ketorolac tromethamine Allergy Unknown Verified 11/24/18 01:49 [From Toradol] Review of Systems ROS Statement: Those systems with pertinent positive or pertinent negative responses have been documented in the HPI. ROS Other: All systems not noted in ROS Statement are negative. Past Medical History Past Medical History: GERD/Reflux Additional Past Medical History / Comment(s): Nephrolithiasis, hematuria, crohn' s disease/multiple resections and ileostomy, gastric ulcer, colon polyps, anemia, DDD, chronic back pain, numbness/tingling bilateral legs, sinus problems/seasonal allergies, recent intermittent chest pain and is to have stress test 11/25/17. History of Any Multi-Drug Resistant Organisms: None Reported Past Surgical History: Bowel Resection, Hernia Repair Additional Past Surgical History / Comment(s): cystoscopies/L uretero scopy/lithotripsey/double J catheter insertion and removal, ureteral stent, multiple bowel resections/ileostomy, colonoscopies, incisional hernia repair, epidural injections to back. Past Anesthesia/Blood Transfusion Reactions: No Reported Reaction Additional Past Anesthesia/Blood Transfusion Reaction / Comment(s): Pt received blood in 1979 without reaction. Past Psychological History: ADD/ADHD, Anxiety, Bipolar, Depression Smoking Status: Current every day smoker Past Alcohol Use History: None Reported Past Drug Use History: Marijuana - Past Family History Father Additional Family Medical History / Comment(s): Father is . He had a brain tumor. Pt unsure if cancerous. General Exam - General Exam Comments Initial Comments: Physical Exam GENERAL: Patient rolling around on bed in pain HENT: Normocephalic, Atraumatic. EYES: PERRL, EOMI PULMONARY: Unlabored respirations. No audible rales rhonchi or wheezing was noted. CARDIOVASCULAR: There is a regular rate and rhythm without any murmurs gallops or rubs. ABDOMEN: Soft and nontender with normal bowel sounds. Colostomy in left lower quadrant pink patent and productive Tenderness to even light touch of the left flank SKIN: Skin is clear with no lesions or rashes and otherwise unremarkable. No diaphoresis : Deferred NEUROLOGIC: Patient is alert and oriented x3. Moving all extremities spontaneously MUSCULOSKELETAL: Normal extremities with adequate strength and full range of motion. No lower extremity swelling or edema. No calf tenderness. PSYCHIATRIC: Normal psychiatric evaluation Limitations: no limitations Course Vital Signs 11/24/18 01:47 Temperature 98 F Pulse Rate 86 Respiratory 18 Rate Blood Pressure 157/86 O2 Sat by Pulse 96 Oximetry Medical Decision Making - Medical Decision Making Patient was seen and evaluated upon arrival patient reports he was told he had bleeding from the kidney which could cause some dysuria. Patient reports he passed 2 blood clots and is very uncomfortable. Patient's were rolling around in discomfort, despite reporting this pain is unbearable and feeling as though he is going to patient has completely normal vital signs. Patient was given morphine, when assessed he repeatedly stated that his pain was not controlled and requested stronger pain medications Upon further exam patient was noted to be sleeping CBC/CMP unremarkable Patient was heard to be screaming at staff, I reassessed him, he was agitated by the conversations of other people in the ER and requesting to leave now. Patient hemodynamically stable for discharge and out patient follow up with urology. - Lab Data Result diagrams: 11/24/18 03:00 11/24/18 03:00 Lab Results 11/24/18 11/24/18 11/24/18 Range/Units 03:00 03:00 03:48 WBC 14.5 H (3.8-10.6) k/uL RBC 4.65 (4.30-5.90) m/uL Hgb 14.2 (13.0-17.5) gm/dL Hct 42.1 (39.0-53.0) % MCV 90.5 (80.0-100.0) fL MCH 30.5 (25.0-35.0) pg MCHC 33.7 (31.0-37.0) g/dL RDW 14.6 (11.5-15.5) % Plt Count 244 (150-450) k/uL Neutrophils % 69 % Lymphocytes % 15 % Monocytes % 7 % Eosinophils % 3 % Basophils % 1 % Neutrophils # 10.1 H (1.3-7.7) k/uL Lymphocytes # 2.2 (1.0-4.8) k/uL Monocytes # 1.1 H (0-1.0) k/uL Eosinophils # 0.4 (0-0.7) k/uL Basophils # 0.2 (0-0.2) k/uL Sodium 139 (137-145) mmol/L Potassium 4.4 (3.5-5.1) mmol/L Chloride 111 H (98-107) mmol/L Carbon Dioxide 18 L (22-30) mmol/L Anion Gap 10 mmol/L BUN 23 H (9-20) mg/dL Creatinine 1.15 (0.66-1.25) mg/dL Est GFR (CKD-EPI)AfAm 86 (>60 ml/min/1.73 sqM) Est GFR (CKD-EPI)NonAf 74 (>60 ml/min/1.73 sqM) Glucose 118 H (74-99) mg/dL Calcium 9.5 (8.4-10.2) mg/dL Total Bilirubin 0.2 (0.2-1.3) mg/dL AST 29 (17-59) U/L ALT 35 (21-72) U/L Alkaline Phosphatase 90 (38-126) U/L Total Protein 7.4 (6.3-8.2) g/dL Albumin 4.2 (3.5-5.0) g/dL Lipase 100 (23-300) U/L Urine Color Dark Red Urine Appearance Cloudy (Clear) Urine RBC >182 H (0-5) /hpf Urine WBC 49 H (0-5) /hpf Ur Squamous Epith Cells 2 (0-4) /hpf Urine Bacteria Rare H (None) /hpf Urine Mucus Few H (None) /hpf Disposition Clinical Impression: Hematuria Disposition: HOME SELF-CARE Condition: Stable Instructions (If sedation given, give patient instructions): Hematuria (ED) Additional Instructions: Call Dr Hernández today for follow up Is patient prescribed a controlled substance at d/c from ED?: No Referrals: Tigist Barrientos MD [Primary Care Provider] - 1-2 days
[2018-11-24 03:35] LABS: Basophils # (A) 0.2 k/uL (0-0.2); Basophils % (A) 1 %; Eosinophils # (A) 0.4 k/uL (0-0.7); Eosinophils % (A) 3 %; HCT 42.1 % (39.0-53.0); HGB 14.2 gm/dL (13.0-17.5); Lymphocytes # (A) 2.2 k/uL (1.0-4.8); Lymphocytes % (A) 15 %; MCH 30.5 pg (25.0-35.0); MCHC 33.7 g/dL (31.0-37.0); MCV 90.5 fL (80.0-100.0); Monocytes # (A) 1.1 k/uL (0-1.0); Monocytes % (A) 7 %; Neutrophils # (A) 10.1 k/uL (1.3-7.7); Neutrophils % (A) 69 %; Platelet Count 244 k/uL (150-450); RBC 4.65 m/uL (4.30-5.90); RDW 14.6 % (11.5-15.5); WBC 14.5 k/uL (3.8-10.6)
[2018-11-24 03:41] LABS: Albumin 4.2 g/dL (3.5-5.0); Calcium 9.5 mg/dL (8.4-10.2); Potassium 4.4 mmol/L (3.5-5.1); Total Bilirubin 0.2 mg/dL (0.2-1.3); Total Protein 7.4 g/dL (6.3-8.2)
[2018-11-24 04:41] LABS: Bacteria,Urine Rare /hpf; Mucus,Urine Few /hpf; Squamous Epithelial Cell,Urine 2 /hpf (0-4); WBC,Urine 49 /hpf (0-5)
[2018-11-24 04:45] LABS: Appearance,Urine Cloudy (Clear); Color,Urine Dark Red; RBC,Urine >182 /hpf (0-5)
== END 2018-11-24 04:50 | disposition home or self-care (01) ==
LOC: EC 01:29
DX: R31.9 Hematuria, unspecified (principal); R45.1 Restlessness and agitation; R39.89 Other symptoms and signs involving the genitourinary system; G89.29 Other chronic pain; F17.200 Nicotine dependence, unspecified, uncomplicated; Z88.6 Allergy status to analgesic agent; Z91.041 Radiographic dye allergy status; Z87.19 Personal history of other diseases of the digestive system; Z87.440 Personal history of urinary (tract) infections; Z87.442 Personal history of urinary calculi; Z90.49 Acquired absence of other specified parts of digestive tract; Z98.890 Other specified postprocedural states; Z96.0 Presence of urogenital implants; Z93.3 Colostomy status; Z93.2 Ileostomy status
CPT/HCPCS: 36415; 51798; 80053; 81001; 83690; 85025; 87086; 96361; 96374; 96375; 99284

== ENCOUNTER → 2020-02-15 | Outpatient (CLI) | payer MEDICARE ==
--- NOTE | 2020-02-15 13:04 | XR ---
EXAMINATION TYPE: XR elbow complete LT DATE OF EXAM: 02/15/2020 COMPARISON: NONE HISTORY: Pain FINDINGS: Three views of the elbow demonstrate no pathologic joint effusion. The osseous structures are intact . There is no acute fracture or dislocation. Small olecranon spur. IMPRESSION: 1. No acute fracture or dislocation. If symptoms persist follow-up study in 7 to 10 days could be ob tained. 2. Small olecranon spur.
== END | disposition home or self-care (01) ==
LOC: RADXRMAIN 12:31
PROVIDERS: ATTEND Family Medicine
DX: M25.722 Osteophyte, left elbow (principal)

== ENCOUNTER 2021-07-17 22:28 | Observation (INO) | payer MEDICARE ==
[2021-07-17] MEDS ORDERED: MORPHINE SULFATE 4 MG/ML SYRINGE IV STA (23:12)
[2021-07-17] MEDS ORDERED: SODIUM CHLORIDE 0.9% 1,000 ML IV STA (23:12)
[2021-07-17] MEDS ORDERED: ONDANSETRON 4 MG/2 ML VIAL IVP STA (23:12)
[2021-07-17 23:54] LABS: Basophils # (A) 0.1 k/uL (0-0.2); Basophils % (A) 1 %; Eosinophils # (A) 0.1 k/uL (0-0.7); Eosinophils % (A) 1 %; HGB 18.8 gm/dL (13.0-17.5); Lymphocytes # (A) 1.9 k/uL (1.0-4.8); Lymphocytes % (A) 9 %; MCH 30.9 pg (25.0-35.0); MCHC 34.2 g/dL (31.0-37.0); MCV 90.6 fL (80.0-100.0); Mean Platelet Volume 10.2; Monocytes # (A) 0.9 k/uL (0-1.0); Monocytes % (A) 5 %; Neutrophils # (A) 16.9 k/uL (1.3-7.7); Neutrophils % (A) 83 %; Platelet Count 240 k/uL (150-450); RBC 6.08 m/uL (4.30-5.90); RDW 13.1 % (11.5-15.5); WBC 20.3 k/uL (3.8-10.6)
[2021-07-17 23:57] LABS: HCT 55.1 % (39.0-53.0)
--- NOTE | 2021-07-17 23:57 | ED ---
Nausea/Vomiting/Diarrhea HPI - General Chief complaint: Nausea/Vomiting/Diarrhea Stated complaint: Nausea, vomiting Time Seen by Provider: 07/17/21 22:46 Source: patient Mode of arrival: EMS Limitations: no limitations - History of Present Illness MD complaint: nausea, vomiting, abdominal pain Onset/Timin -: hour(s) Description of Vomiting: food contents Description of Diarrhea: water Associated Abdominal Pain: Yes Location: diffuse Severity: moderate Quality: cramping Consistency: intermittent Improves with: none Worsens with: none Associated Symptoms: other (Muscle cramping) - Related Data Home Medications Medication Instructions Recorded Confirmed HYDROcodone/APAP 10-325MG [[place] 1 tab PO TID PRN 03/17/14 07/18/21 10-325] ALPRAZolam [Xanax] 1 mg PO BID 05/22/15 07/18/21 Diazepam [Valium] 10 mg PO DAILY PRN 11/21/18 07/18/21 Phentermine HCl [Adipex-P] 37.5 mg PO DAILY 07/18/21 07/18/21 Previous Rx's Medication Instructions Recorded Ondansetron Odt [Zofran Odt] 4 mg PO Q8HR PRN #10 tab 07/18/21 Pantoprazole [Protonix] 40 mg PO DAILY #30 tab 07/18/21 Allergies Allergy/AdvReac Type Severity Reaction Status Date / Time Iodinated Contrast Media Allergy "burning Verified 07/18/21 07:23 [Iodinated Contrast Media - on the IV Dye] inside" ketorolac tromethamine Allergy swelling Verified 07/18/21 07:23 [From Toradol] at injection site Review of Systems ROS Statement: Those systems with pertinent positive or pertinent negative responses have been documented in the HPI. ROS Other: All systems not noted in ROS Statement are negative. Constitutional: Denies: fever Respiratory: Denies: cough, dyspnea Cardiovascular: Denies: chest pain, palpitations Gastrointestinal: Reports: abdominal pain, nausea, vomiting, diarrhea. Denies: constipation, hematemesis, melena, hematochezia Genitourinary: Denies: dysuria, hematuria Musculoskeletal: Denies: back pain Skin: Denies: rash Neurological: Denies: headache, weakness Past Medical History Past Medical History: GERD/Reflux Additional Past Medical History / Comment(s): Nephrolithiasis, hematuria, crohn's disease/multiple resections and ileostomy, gastric ulcer, colon polyps, anemia, DDD, chronic back pain, numbness/tingling bilateral legs, sinus problems/seasonal allergies, recent intermittent chest pain and is to have stress test 11/25/17. History of Any Multi-Drug Resistant Organisms: None Reported Past Surgical History: Bowel Resection, Hernia Repair Additional Past Surgical History / Comment(s): cystoscopies/L ureteroscopy /lithotripsey/double J catheter insertion and removal, ureteral stent, multiple bowel resections/ileostomy, colonoscopies, incisional hernia repair, epidural injections to back. Past Anesthesia/Blood Transfusion Reactions: No Reported Reaction Additional Past Anesthesia/Blood Transfusion Reaction / Comment(s): Pt received blood in 1979 without reaction. Past Psychological History: ADD/ADHD, Anxiety, Bipolar, Depression Smoking Status: Current every day smoker Past Alcohol Use History: None Reported Past Drug Use History: Marijuana - Past Family History Father Additional Family Medical History / Comment(s): Father is . He had a brain tumor. Pt unsure if cancerous. General Exam Limitations: no limitations General appearance: alert, in no apparent distress Head exam: Present: atraumatic, normocephalic Neck exam: Present: normal inspection Respiratory exam: Present: normal lung sounds bilaterally. Absent: respiratory distress, wheezes, rales, rhonchi, stridor Cardiovascular Exam: Present: regular rate, normal rhythm, normal heart sounds. Absent: systolic murmur, diastolic murmur, rubs, gallop GI/Abdominal exam: Present: soft, other (There is an ostomy in the left abdomen with stool and gas production. Normal appearance.). Absent: distended, tenderness, guarding, rebound, rigid, mass Extremities exam: Present: normal inspection, normal capillary refill. Absent: pedal edema, calf tenderness Back exam: Present: normal inspection. Absent: CVA tenderness (R), CVA tenderness (L) Neurological exam: Present: alert Skin exam: Present: warm, dry, intact, normal color. Absent: rash Course Vital Signs 07/17/21 07/18/21 07/18/21 22:36 01:58 06:38 Temperature 97.6 F Pulse Rate 106 H 110 H 95 Respiratory 16 18 16 Rate Blood Pressure 141/98 129/75 137/86 O2 Sat by Pulse 94 L 94 L 95 Oximetry 07/18/21 07/18/21 10:49 12:45 Temperature 98.4 F 98.1 F Pulse Rate 95 94 Respiratory 18 16 Rate Blood Pressure 126/84 124/68 O2 Sat by Pulse 96 96 Oximetry Medical Decision Making - Lab Data Result diagrams: 07/18/21 09:50 07/18/21 09:50 Lab Results 07/17/21 07/18/21 07/18/21 Range/Units 23:24 00:05 02:08 WBC 20.3 H (3.8-10.6) k/uL RBC 6.08 H (4.30-5.90) m/uL Hgb 18.8 H (13.0-17.5) gm/dL Hct 55.1 H (39.0-53.0) % MCV 90.6 (80.0-100.0) fL MCH 30.9 (25.0-35.0) pg MCHC 34.2 (31.0-37.0) g/dL RDW 13.1 (11.5-15.5) % Plt Count 240 (150-450) k/uL MPV 10.2 Neutrophils % 83 % Lymphocytes % 9 % Monocytes % 5 % Eosinophils % 1 % Basophils % 1 % Neutrophils # 16.9 H (1.3-7.7) k/uL Lymphocytes # 1.9 (1.0-4.8) k/uL Monocytes # 0.9 (0-1.0) k/uL Eosinophils # 0.1 (0-0.7) k/uL Basophils # 0.1 (0-0.2) k/uL Sodium 138 (137-145) mmol/L Potassium 3.8 (3.5-5.1) mmol/L Chloride 109 H (98-107) mmol/L Carbon Dioxide 19 L (22-30) mmol/L Anion Gap 10 mmol/L BUN 23 H (9-20) mg/dL Creatinine 0.94 (0.66-1.25) mg/dL Est GFR (CKD-EPI)AfAm >90 (>60 ml/min/1.73 sqM) Est GFR (CKD-EPI)NonAf >90 (>60 ml/min/1.73 sqM) Glucose 118 H (74-99) mg/dL Calcium 9.0 (8.4-10.2) mg/dL Total Bilirubin 0.9 (0.2-1.3) mg/dL AST 29 (17-59) U/L ALT 33 (4-49) U/L Alkaline Phosphatase 91 (38-126) U/L Total Protein 7.8 (6.3-8.2) g/dL Albumin 4.3 (3.5-5.0) g/dL Amylase 62 (30-110) U/L Lipase 75 (23-300) U/L Urine Color Yellow Urine Appearance Clear (Clear) Urine pH 5.5 (5.0-8.0) Ur Specific [place] 1.029 (1.001-1.035) Urine Protein Trace H (Negative) Urine Glucose (UA) Negative (Negative) Urine Ketones 1+ H (Negative) Urine Blood Trace H (Negative) Urine Nitrite Negative (Negative) Urine Bilirubin Negative (Negative) Urine Urobilinogen <2.0 (<2.0) mg/dL Ur Leukocyte Esterase Negative (Negative) Urine RBC 1 (0-5) /hpf Urine WBC 1 (0-5) /hpf Ur Squamous Epith Cells <1 (0-4) /hpf Urine Mucus Many H (None) /hpf Disposition Clinical Impression: Intractable pain, Abdominal pain Disposition: ADMITTED IP TO THIS [facility] Condition: Stable Is patient prescribed a controlled substance at d/c from ED?: No
[2021-07-18 00:22] LABS: ALT 33 U/L (4-49); AST 29 U/L (17-59); African American GFR (CKD) >90 (>60 ml/min/1.73 sqM); Albumin 4.3 g/dL (3.5-5.0); Alkaline Phosphatase 91 U/L (38-126); Amylase 62 U/L (30-110); Anion Gap 10 mmol/L; Blood Urea Nitrogen 23 mg/dL (9-20); Carbon Dioxide 19 mmol/L (22-30); Chloride 109 mmol/L (98-107); Glucose 118 mg/dL (74-99); Lipase 75 U/L (23-300); Non-African American GFR(CKD) >90 (>60 ml/min/1.73 sqM); Potassium 3.8 mmol/L (3.5-5.1); Sodium 138 mmol/L (137-145); Total Bilirubin 0.9 mg/dL (0.2-1.3); Total Protein 7.8 g/dL (6.3-8.2)
[2021-07-18] MEDS ORDERED: HYDROmorphone 1 MG/ML 1 ML SYRINGE IVP STA ×2 (00:30→02:40)
--- NOTE | 2021-07-18 01:25 | XR ---
EXAMINATION TYPE: XR KUB DATE OF EXAM: 07/18/2021 COMPARISON: 11/21/2018 HISTORY: Abdominal pain TECHNIQUE: 2 views upright FINDINGS: There is no sign of intestinal obstruction or pneumoperitoneum. Fecal pattern is normal. Th ere is no evidence of a mass. There are clips from cholecystectomy. Lung bases are clear. There is sl ight lumbar dextroscoliosis. IMPRESSION: Nonacute abdomen. No change.
[2021-07-18] MEDS ORDERED: SODIUM CHLORIDE 0.9% 1,000 ML IV ONE ×2 (02:40→04:52)
[2021-07-18 03:16] LABS: Appearance,Urine Clear (Clear); Bilirubin,Urine Negative (Negative); Blood,Urine Trace (Negative); Color,Urine Yellow; Glucose,Urine (UA) Negative (Negative); Ketones,Urine 1+ (Negative); Leukocyte Esterase,Urine Negative (Negative); Mucus,Urine Many /hpf; Nitrite,Urine Negative (Negative); PH, Urine 5.5 (5.0-8.0); Protein,Urine Trace (Negative); RBC,Urine 1 /hpf (0-5); Specific Gravity,Urine 1.029 (1.001-1.035); Squamous Epithelial Cell,Urine <1 /hpf (0-4); Urobilinogen,Urine <2.0 mg/dL (<2.0); WBC,Urine 1 /hpf (0-5)
--- NOTE | 2021-07-18 03:57 | CT ---
EXAMINATION TYPE: CT abdomen pelvis wo con DATE OF EXAM: 07/18/2021 COMPARISON: 11/21/2018 HISTORY: abdominal pain, acute, non-localized CT DLP: 735.3 mGycm Automated exposure control for dose reduction was used. The lung bases are clear. There is no pleural effusion. Heart size is normal. There is no pericardial effusion. Liver spleen and stomach pancreas appear normal. There are clips from cholecystectomy. The bile ducts are not dilated. There is no adrenal mass. Kidneys have normal size. There is no hydronephrosis. Ureters are not dilat ed. There are right renal cortical cysts up to 1.5 cm. There is no retroperitoneal adenopathy. Bladde r distends smoothly. There is no inguinal hernia. There is no free fluid in the pelvis. There is no p elvic mass. There is apparent total colectomy with rectal stump. There is ileostomy in the left mid abdomen. Ther e is no evidence of a bowel obstruction. There is no free air. There is no ascites. There is anterior abdominal wall hernia on the right side just below the liver that contains small bowel with slight i ncarceration. This appears stable compared to old exam. The lumbar vertebrae have normal alignment. There is no compression fracture. Bony pelvis is intact. The hip joints are intact. IMPRESSION: There is clearing of the left-sided hydronephrosis and hydroureter compared to the old exam. No acute abnormality in the abdomen and pelvis. There is stable right anterior lateral abdominal wall hernia.
[2021-07-18] MEDS ORDERED: NALOXONE 0.4 MG/ML 1 ML VIAL IV PRN (04:53)
[2021-07-18] MEDS ORDERED: ONDANSETRON 4 MG/2 ML VIAL IVP PRN (04:53)
[2021-07-18] MEDS ORDERED: SODIUM CHLORIDE 0.9% 1,000 ML IV SCH (05:00)
[2021-07-18] MEDS: MORPHINE SULFATE 4 MG/ML SYRINGE IV PRN ×2 (05:38→09:47)
[2021-07-18] MEDS ORDERED: MORPHINE SULFATE 4 MG/ML SYRINGE IV STA (07:09)
[2021-07-18] MEDS ORDERED: PANTOPRAZOLE 40 MG/10 ML VIAL IV SCH (09:00)
[2021-07-18 10:49] LABS: Basophils % (A) 0 %; Eosinophils # (A) 0.1 k/uL (0-0.7); Eosinophils % (A) 1 %; HCT 51.7 % (39.0-53.0); HGB 17.1 gm/dL (13.0-17.5); Lymphocytes # (A) 0.8 k/uL (1.0-4.8); Lymphocytes % (A) 7 %; MCH 30.9 pg (25.0-35.0); MCV 93.6 fL (80.0-100.0); Monocytes # (A) 0.7 k/uL (0-1.0); Monocytes % (A) 6 %; Neutrophils # (A) 10.4 k/uL (1.3-7.7); Neutrophils % (A) 85 %; Platelet Count 180 k/uL (150-450); RBC 5.53 m/uL (4.30-5.90); RDW 13.4 % (11.5-15.5); WBC 12.2 k/uL (3.8-10.6)
[2021-07-18 10:55] LABS: African American GFR (CKD) >90 (>60 ml/min/1.73 sqM); Anion Gap 8 mmol/L; Blood Urea Nitrogen 19 mg/dL (9-20); Calcium 8.2 mg/dL (8.4-10.2); Carbon Dioxide 21 mmol/L (22-30); Chloride 107 mmol/L (98-107); Glucose 124 mg/dL (74-99); Non-African American GFR(CKD) >90 (>60 ml/min/1.73 sqM); Potassium 4.2 mmol/L (3.5-5.1); Sodium 136 mmol/L (137-145)
[2021-07-18 12:46] VITALS: BP 124/68; PULSE 94; RESP 16; TEMP 98.1
--- NOTE | 2021-07-18 14:00 | P.HPIM ---
History of Present Illness H&P Date: 07/18/21 This is a 55-year-old male who was presenting to the emergency department with nausea, vomiting, diarrhea with abdominal pain. Patient states the abdominal pain and nauseated followed by vomiting started last night and proceeded throughout the night and patient came to the ER for further evaluation. Patient underwent abdominal x-ray which showed nonacute abdomen with no sign of intestinal obstruction or pneumoperitoneum and fecal pattern is normal with no evidence of a mass. Patient also underwent CT abdomen and pelvis which showed a clearing of the left-sided hydronephrosis and hydroureter compared to previous exam with no acute abnormality in the abdomen and pelvis and a stable right a nterior lateral abdominal wall hernia. Surgical services were consulted and recommending outpatient follow-up with no surgical interventions planned at this time. Labs on presentation show a white blood count of 20.3, hemoglobin is 18.8, platelets are 240, sodium is 138, potassium 3.8, BUN 23, Review of systems: Constitutional: No reports of fatigue, fever, or chills Cardiovascular: No reports of chest pain or palpitations Respiratory: No reports of shortness of breath or cough GI: reports of nausea, reports of of vomiting, loose stools noted in the ileostomy with no changes from previous : No reports of dysuria or retention Neurovascular: No reports of weakness or numbness All medications have been reviewed Active Medications Active Medications Sodium Chloride (Saline 0.9%) 1,000 mls @ 130 mls/hr IV .[id number] [facility] Last Admin: 07/18/21 05:45 Dose: 130 mls/hr Documented by: Morphine Sulfate (Morphine Sulfate 4 Mg/Ml Syringe) 4 mg IV Q4HR PRN PRN Reason: Severe Pain Last Admin: 07/18/21 09:47 Dose: 4 mg Documented by: Naloxone HCl (Naloxone 0.4 Mg/Ml 1 Ml Vial) 0.2 mg IV Q2M PRN PRN Reason: Opioid Reversal Ondansetron HCl (Ondansetron 4 Mg/2 Ml Vial) 4 mg IVP Q8HR PRN PRN Reason: Nausea And Vomiting Pantoprazole Sodium (Pantoprazole 40 Mg/10 Ml Vial) 40 mg IV DAILY [facility] Last Admin: 07/18/21 09:47 Dose: 40 mg Documented by: PHYSICAL EXAMINATION: GENERAL: The patient is alert and oriented x4, Well developed, well nourished. HEENT: Pupils are round and equally reacting to light. EOMI. does have scleral icterus. No conjunctival pallor. Normocephalic, atraumatic. No pharyngeal erythema. No thyromegaly. CARDIOVASCULAR: S1 and S2 muffled PULMONARY: diminished breath sounds bilaterally with no wheezing or rhonchi n oted. ABDOMEN: soft. mild right lower quadrant tenderness on deep outpatient obese. non-distended, normoactive bowel sounds. No palpable organomegaly. Ileostomy on the left noted with gas and loose stool MUSCULOSKELETAL: No joint swelling or deformity. EXTREMITIES: No cyanosis, clubbing, or pedal edema. NEUROLOGICAL: Gross neurological examination did not reveal any focal deficits. SKIN: No rashes. Assessment: Nausea and vomiting possible gastritis Right lower quadrant tenderness most likely related to vomiting Mild leukocytosis, most likely reactive secondary to vomiting, improving Continued ongoing nicotine abuse, counseling was provided Gastroesophageal reflux disease Crohn's disease with multiple resections and end ileostomy Chronic anemia History of nephrolithiasis with hematuria GI prophylaxis DVT prophylaxis Full code Plan: Recommend to continue with current medications and gentle IV hydration along with pain management. patient has received fluids via IV along with Protonix and denies any further vomiting or nausea. Patient with some right lower quadrant tenderness although feels improved from admission to the ER. General surgery evaluated the patient recommending conservative management and no plans for surgical intervention at this time and will see the patient in the outpatient setting. Patient is asking for advancement in diet. If patient tolerates diet will likely discharge and recommend the patient to follow-up with primary care provider on discharge. Leukocytosis most likely reactive trending down and repeat lab shows WBC of 12.2 from previous 20.3. Basic metabolic panel within normal limits. Patient is counseled on smoking cessation. Home medications have been resumed and Protonix has been ordered and if patient can tolerate soft diet we'll discharge this afternoon. The impression and plan of care has been dictated by Patricia Lundy, nurse practitioner as directed. MD Bianca I have performed a history and examination and MDM of this patient, discussed the same with the dictator, and agree with the dictator's assessment and plan as written ,documented as a scribe. Based on total visit time, I have performed more than 50% of the visit. Any additional findings or plans will be noted. Review of Systems Constitutional: Denies chills, Denies fever Ears, nose, mouth and throat: Denies headache, Denies sore throat Cardiovascular: Denies chest pain, Denies shortness of breath Respiratory: Denies cough Gastrointestinal: Reports abdominal pain, Reports bloating, Reports indigestion, Reports nausea, Reports vomiting Musculoskeletal: Denies myalgias Integumentary: Denies pruritus, Denies rash Neurological: Denies numbness, Denies weakness Psychiatric: Denies anxiety, Denies depression Endocrine: Denies fatigue, Denies weight change Past Medical History Past Medical History: GERD/Reflux Additional Past Medical History / Comment(s): Nephrolithiasis, hematuria, crohn's disease/multiple resections and ileostomy, gastric ulcer, colon polyps, anemia, DDD, chronic back pain, numbness/tingling bilateral legs, sinus problems/seasonal allergies, recent intermittent chest pain and is to have stress test 11/25/17. History of Any Multi-Drug Resistant Organisms: None Reported Past Surgical History: Bowel Resection, Hernia Repair Additional Past Surgical History / Comment(s): cystoscopies/L ureteroscopy/lithotripsey/double J catheter insertion and removal, ureteral stent, multiple bowel resections/ileostomy, colonoscopies, incisional hernia repair, epidural injections to back. Past Anesthesia/Blood Transfusion Reactions: No Reported Reaction Additional Past Anesthesia/Blood Transfusion Reaction / Comment(s): Pt received blood in 1979 without reaction. Past Psychological History: ADD/ADHD, Anxiety, Bipolar, Depression Smoking Status: Current every day smoker Past Alcohol Use History: None Reported Past Drug Use History: Marijuana - Past Family History Father Additional Family Medical History / Comment(s): Father is . He had a brain tumor. Pt unsure if cancerous. Medications and Allergies Home Medications Medication Instructions Recorded Confirmed Type HYDROcodone/APAP 10-325MG [[place] 1 tab PO TID PRN 03/17/14 07/18/21 History 10-325] ALPRAZolam [Xanax] 1 mg PO BID 05/22/15 07/18/21 History Diazepam [Valium] 10 mg PO DAILY PRN 11/21/18 07/18/21 History Ondansetron Odt [Zofran Odt] 4 mg PO Q8HR PRN #10 tab 07/18/21 Rx Pantoprazole [Protonix] 40 mg PO DAILY #30 tab 07/18/21 Rx Phentermine HCl [Adipex-P] 37.5 mg PO DAILY 07/18/21 07/18/21 History Allergies Allergy/AdvReac Type Severity Reaction Status Date / Time Iodinated Contrast Media Allergy "burning Verified 07/18/21 07:23 [Iodinated Contrast Media - on the IV Dye] inside" ketorolac tromethamine Allergy swelling Verified 07/18/21 07:23 [From Toradol] at injection site Physical Exam Vitals: Vital Signs Temp Pulse Resp BP Pulse Ox 07/18/21 10:49 98.4 F 95 18 126/84 96 07/18/21 06:38 95 16 137/86 95 07/18/21 01:58 110 H 18 129/75 94 L 07/17/21 22:36 97.6 F 106 H 16 141/98 94 L Intake and Output 07/17/21 07/18/21 07/18/21 22:59 06:59 14:59 Other: Weight 104.326 kg Results CBC & Chem 7: 07/18/21 09:50 07/18/21 09:50 Labs: Abnormal Lab Results - Last 24 Hours (Table) 07/17/21 07/18/21 07/18/21 Range/Units 23:24 00:05 02:08 WBC 20.3 H (3.8-10.6) k/uL RBC 6.08 H (4.30-5.90) m/uL Hgb 18.8 H (13.0-17.5) gm/dL Hct 55.1 H (39.0-53.0) % Neutrophils # 16.9 H (1.3-7.7) k/uL Lymphocytes # (1.0-4.8) k/uL Sodium (137-145) mmol/L Chloride 109 H (98-107) mmol/L Carbon Dioxide 19 L (22-30) mmol/L BUN 23 H (9-20) mg/dL Glucose 118 H (74-99) mg/dL Calcium (8.4-10.2) mg/dL Urine Protein Trace H (Negative) Urine Ketones 1+ H (Negative) Urine Blood Trace H (Negative) Urine Mucus Many H (None) /hpf 07/18/21 07/18/21 Range/Units 09:50 09:50 WBC 12.2 H (3.8-10.6) k/uL RBC (4.30-5.90) m/uL Hgb (13.0-17.5) gm/dL Hct (39.0-53.0) % Neutrophils # 10.4 H (1.3-7.7) k/uL Lymphocytes # 0.8 L (1.0-4.8) k/uL Sodium 136 L (137-145) mmol/L Chloride (98-107) mmol/L Carbon Dioxide 21 L (22-30) mmol/L BUN (9-20) mg/dL Glucose 124 H (74-99) mg/dL Calcium 8.2 L (8.4-10.2) mg/dL Urine Protein (Negative) Urine Ketones (Negative) Urine Blood (Negative) Urine Mucus (None) /hpf Assessment and Plan Time with Patient: Greater than 30
--- NOTE | 2021-07-18 14:04 | P.DS ---
Providers Date of admission: 07/18/21 04:53 Expected date of discharge: 07/18/21 Attending physician: Macey Foster Consults: 07/18/21 04:54 Consult Physician Routine Consulting Provider: Tony Velazco Consult Reason/Comments: abdominal pain Do you want consulting provider notified?: Yes Primary care physician: Stated None Hospital Course: Final diagnosis Nausea and vomiting possible gastritis Right lower quadrant tenderness most likely related to vomiting Mild leukocytosis, most likely reactive secondary to vomiting, improving Continued ongoing nicotine abuse, counseling was provided Gastroesophageal reflux disease Crohn's disease with multiple resections and end ileostomy Chronic anemia History of nephrolithiasis with hematuria GI prophylaxis DVT prophylaxis Full code Discharge disposition Patient is being discharged in a stable condition with guarded prognosis to home. Patient will follow-up with Dr. Tigist Barrientos in the outpatient setting upon discharge. Patient is to also follow-up with general surgery in the outpatient setting. Patient will continue on Protonix on discharge. Total time taken is greater than 35 minutes. Hospital course This is a 55-year-old male who was recently admitted with nausea vomiting and abdominal pain. Patient received IV hydration along with pain medications and Protonix and is having improvement in abdominal pain and denies any further nausea or vomiting. Patient asking for diet and will start soft diet and if can tolerate patient is being discharged today. Labs within normal limits and encourage the patient to follow-up with primary care provider on discharge. Patient will also need outpatient follow-up for hernia with general surgery and resources were provided. Patient will continue on Protonix daily and appropriate home medications have been resumed. Patient encouraged to avoid tobacco use and counseling was provided. Patient reports to feeling better and denies any further nausea or vomiting and requesting to go home. Currently no reports of chest pain, shortness of breath, or palpitations. Patient is afebrile. No reports of nausea or vomiting and patient is tolerating diet. Patient will be discharged home today. PHYSICAL EXAMINATION: GENERAL: The patient is alert and oriented x4, Well developed, well nourished. HEENT: Pupils are round and equally reacting to light. EOMI. does have scleral icterus. No conjunctival pallor. Normocephalic, atraumatic. No pharyngeal erythema. No thyromegaly. CARDIOVASCULAR: S1 and S2 muffled PULMONARY: diminished breath sounds bilaterally with no wheezing or rhonchi noted. ABDOMEN: soft. mild right lower quadrant tenderness on deep outpatient obese. non-distended, normoactive bowel sounds. No palpable organomegaly. Ileostomy on the left noted with gas and loose stool MUSCULOSKELETAL: No joint swelling or deformity. EXTREMITIES: No cyanosis, clubbing, or pedal edema. NEUROLOGICAL: Gross neurological examination did not reveal any focal deficits. SKIN: No rashes. Please refer to medication reconciliation sheet for a list of medications. The impression and plan of care has been dictated by Patricia Lundy, nurse practitioner as directed. MD Bianca I have performed a history and examination and MDM of this patient, discussed the same with the dictator, and agree with the dictator's assessment and plan as written ,documented as a scribe. Based on total visit time, I have performed more than 50% of the visit. Any additional findings or plans will be noted. Patient Condition at Discharge: Stable Plan - Discharge Summary New Discharge Prescriptions: New Pantoprazole [Protonix] 40 mg PO DAILY #30 tab Ondansetron Odt [Zofran Odt] 4 mg PO Q8HR PRN #10 tab PRN Reason: Nausea Continue HYDROcodone/APAP 10-325MG [[place] 10-325] 1 tab PO TID PRN PRN Reason: Pain ALPRAZolam [Xanax] 1 mg PO BID Diazepam [Valium] 10 mg PO DAILY PRN PRN Reason: Anxiety Phentermine HCl [Adipex-P] 37.5 mg PO DAILY Discharge Medication List HYDROcodone/APAP 10-325MG [[place] 10-325] 1 tab PO TID PRN 03/17/14 [History] ALPRAZolam [Xanax] 1 mg PO BID 05/22/15 [History] Diazepam [Valium] 10 mg PO DAILY PRN 11/21/18 [History] Ondansetron Odt [Zofran Odt] 4 mg PO Q8HR PRN #10 tab 07/18/21 [Rx] Pantoprazole [Protonix] 40 mg PO DAILY #30 tab 07/18/21 [Rx] Phentermine HCl [Adipex-P] 37.5 mg PO DAILY 07/18/21 [History] Follow up Appointment(s)/Referral(s): Tigist Barrientos MD [REFERRING] - 1 Week Tony Velazco MD [STAFF PHYSICIAN] - 1 Week Patient Instructions/Handouts: Acute Nausea and Vomiting (ED) Activity/Diet/Wound Care/Special Instructions: Activity Limited until follow-up Follow-up with primary care provider on discharge Follow-up Gen. surgery outpatient in one week Continue current diet and advance as tolerated Recommend repeat labs with follow-up from primary care provider to monitor white blood count Recommend to avoid tobacco use Discharge Disposition: HOME SELF-CARE
--- NOTE | 2021-07-18 15:05 | P.GSCN ---
History of Present Illness Consult date: 07/18/21 History of present illness: CHIEF COMPLAINT: Nausea vomiting and diarrhea HISTORY OF PRESENT ILLNESS: This is a 55-year-old male with a known history of Crohn's disease with prior bowel resections and ileostomy placement. He hasn't also a incisional hernia repair with mesh completed at [facility]. Patient presents to the hospital with complaints of severe nausea vomiting and high diarrhea output through his ileostomy. Symptoms started yesterday. He r eports having been around family members were also sick with similar symptoms. He had a slight bulging noted at his incisional hernia on the right side of his abdomen with all of the vomiting. He reports some mild pain there. White count was 20 computed tomography scan had shown a stable right anterior lateral abdominal wall hernia. Denies any fever chills or sweats. Patient seen and examined with Dr. goel PAST MEDICAL HISTORY: See list below an list reviewed PAST SURGICAL HISTORY: See list below list reviewed MEDICATIONS: See list. ALLERGIES: See list. SOCIAL HISTORY: No illicit drug use. REVIEW OF SYSTEMS: CONSTITUTIONAL: Denies fever or chills. HEENT: Denies blurred vision, vision changes, or eye pain. Denies hemoptysis CARDIOVASCULAR: Denies chest pain or pressure. RESPIRATORY: No shortness of breath. GASTROINTESTINAL: See HPI for pertinent findings HEMATOLOGIC: Denies bleeding disorders. GENITOURINARY: Denies any blood in urine or increased urinary frequency. SKIN: Denies pruitis. Denies rash. PHYSICAL EXAM: VITAL SIGNS: Reviewed GENERAL: Well-developed in no acute distress. HEENT: No sclera icterus. Extraocular movements grossly intact. Moist buccal mucosa. Head is atraumatic, normocephalic. No nasal drainage. ABDOMEN: Soft. Nondistended. Nontender. Ileostomy with watery stool. Right sided abdominal incisional wall hernia. Reduced. Minimal tenderness with palpation. No discoloration. NEUROLOGIC: Alert and oriented. Cranial nerves II through XII grossly intact. LABORATORY DATA: WBC 20.3 down to 12.2 hemoglobin 17.1 creatinine 0.95 IMAGING: Computed tomography scan abdomen and pelvis there is clearing of the left sided hydronephrosis and hydroureter compared to old exam. No acute abnormality in the pelvis and abdomen. There is a stable right anterior lateral abdominal wall hernia. ASSESSMENT: 1. Nausea and vomiting likely secondary to a gastroenteritis 2. Right anterior lateral abdominal wall hernia. Stable on computed tomography scan. 3. History of Crohn's disease with multiple bowel resections and ileostomy 4. History of incisional hernia repair with mesh placement on the right side of his abdomen PLAN: -No surgical intervention planned -Continue supportive care -Advance diet to regular -Continue IV fluids Thank you for this consultation Physician Intravenous Therapy Nurse note has been reviewed by physician. Signing provider agrees with the documented findings, assessment, and plan of care. Past Medical History Past Medical History: GERD/Reflux Additional Past Medical History / Comment(s): Nephrolithiasis, hematuria, crohn's disease/multiple resections and ileostomy, gastric ulcer, colon polyps, anemia, DDD, chronic back pain, numbness/tingling bilateral legs, sinus problems/seasonal allergies, recent intermittent chest pain and is to have stress test 11/25/17. History of Any Multi-Drug Resistant Organisms: None Reported Past Surgical History: Bowel Resection, Hernia Repair Additional Past Surgical History / Comment(s): cystoscopies/L ureteroscopy/lithotripsey/double J catheter insertion and removal, ureteral stent, multiple bowel resections/ileostomy, colonoscopies, incisional hernia repair, epidural injections to back. Past Anesthesia/Blood Transfusion Reactions: No Reported Reaction Additional Past Anesthesia/Blood Transfusion Reaction / Comm: Pt received blood in 1979 without reaction. Past Psychological History: ADD/ADHD, Anxiety, Bipolar, Depression Smoking Status: Current every day smoker Past Alcohol Use History: None Reported Past Drug Use History: Marijuana - Past Family History Father Additional Family Medical History / Comment(s): Father is . He had a brain tumor. Pt unsure if cancerous. Medications and Allergies Home Medications Medication Instructions Recorded Confirmed Type HYDROcodone/APAP 10-325MG [[place] 1 tab PO TID PRN 03/17/14 07/18/21 History 10-325] ALPRAZolam [Xanax] 1 mg PO BID 05/22/15 07/18/21 History Diazepam [Valium] 10 mg PO DAILY PRN 11/21/18 07/18/21 History Ondansetron Odt [Zofran Odt] 4 mg PO Q8HR PRN #10 tab 07/18/21 Rx Pantoprazole [Protonix] 40 mg PO DAILY #30 tab 07/18/21 Rx Phentermine HCl [Adipex-P] 37.5 mg PO DAILY 07/18/21 07/18/21 History Allergies Allergy/AdvReac Type Severity Reaction Status Date / Time Iodinated Contrast Media Allergy "burning Verified 07/18/21 07:23 [Iodinated Contrast Media - on the IV Dye] inside" ketorolac tromethamine Allergy swelling Verified 07/18/21 07:23 [From Toradol] at injection site Surgical - Exam Vital Signs Temp Pulse Resp BP Pulse Ox 97.6 F 106 H 16 141/98 94 L 07/17/21 22:36 07/17/21 22:36 07/17/21 22:36 07/17/21 22:36 07/17/21 22:36 Results - Labs 07/18/21 09:50 07/18/21 09:50 Abnormal Lab Results - Last 24 Hours (Table) 07/17/21 07/18/21 07/18/21 Range/Units 23:24 00:05 02:08 WBC 20.3 H (3.8-10.6) k/uL RBC 6.08 H (4.30-5.90) m/uL Hgb 18.8 H (13.0-17.5) gm/dL Hct 55.1 H (39.0-53.0) % Neutrophils # 16.9 H (1.3-7.7) k/uL Chloride 109 H (98-107) mmol/L Carbon Dioxide 19 L (22-30) mmol/L BUN 23 H (9-20) mg/dL Glucose 118 H (74-99) mg/dL Urine Protein Trace H (Negative) Urine Ketones 1+ H (Negative) Urine Blood Trace H (Negative) Urine Mucus Many H (None) /hpf Diabetes panel 07/18/21 Range/Units 00:05 Sodium 138 (137-145) mmol/L Potassium 3.8 (3.5-5.1) mmol/L Chloride 109 H (98-107) mmol/L Carbon Dioxide 19 L (22-30) mmol/L BUN 23 H (9-20) mg/dL Creatinine 0.94 (0.66-1.25) mg/dL Glucose 118 H (74-99) mg/dL Calcium 9.0 (8.4-10.2) mg/dL AST 29 (17-59) U/L ALT 33 (4-49) U/L Alkaline Phosphatase 91 (38-126) U/L Total Protein 7.8 (6.3-8.2) g/dL Albumin 4.3 (3.5-5.0) g/dL Calcium panel 07/18/21 Range/Units 00:05 Calcium 9.0 (8.4-10.2) mg/dL Albumin 4.3 (3.5-5.0) g/dL Pituitary panel 07/18/21 Range/Units 00:05 Sodium 138 (137-145) mmol/L Potassium 3.8 (3.5-5.1) mmol/L Chloride 109 H (98-107) mmol/L Carbon Dioxide 19 L (22-30) mmol/L BUN 23 H (9-20) mg/dL Creatinine 0.94 (0.66-1.25) mg/dL Glucose 118 H (74-99) mg/dL Calcium 9.0 (8.4-10.2) mg/dL Adrenal panel 07/18/21 Range/Units 00:05 Sodium 138 (137-145) mmol/L Potassium 3.8 (3.5-5.1) mmol/L Chloride 109 H (98-107) mmol/L Carbon Dioxide 19 L (22-30) mmol/L BUN 23 H (9-20) mg/dL Creatinine 0.94 (0.66-1.25) mg/dL Glucose 118 H (74-99) mg/dL Calcium 9.0 (8.4-10.2) mg/dL Total Bilirubin 0.9 (0.2-1.3) mg/dL AST 29 (17-59) U/L ALT 33 (4-49) U/L Alkaline Phosphatase 91 (38-126) U/L Total Protein 7.8 (6.3-8.2) g/dL Albumin 4.3 (3.5-5.0) g/dL
== END 2021-07-18 12:55 | disposition home or self-care (01) ==
LOC: EC 22:28 → INTOOBSV 07-18 04:53 → 6NMEDSUR 07-18 04:53 → 5NMEDONC 07-18 09:08 → UNDODISIN 07-18 12:55
PROVIDERS: ADMIT Hospitalist; ATTEND Hospitalist
DX: R11.2 Nausea with vomiting, unspecified (principal); R10.31 Right lower quadrant pain; R19.7 Diarrhea, unspecified; D72.829 Elevated white blood cell count, unspecified; R25.2 Cramp and spasm; K50.90 Crohn's disease, unspecified, without complications; N13.30 Unspecified hydronephrosis; D64.9 Anemia, unspecified; K43.2 Incisional hernia without obstruction or gangrene; Z20.822 Contact with and (suspected) exposure to COVID-19; F17.210 Nicotine dependence, cigarettes, uncomplicated; Z71.6 Tobacco abuse counseling; F31.9 Bipolar disorder, unspecified; F41.9 Anxiety disorder, unspecified; F90.9 Attention-deficit hyperactivity disorder, unspecified type; G89.29 Other chronic pain; J30.2 Other seasonal allergic rhinitis; M54.9 Dorsalgia, unspecified; K21.9 Gastro-esophageal reflux disease without esophagitis; Z87.19 Personal history of other diseases of the digestive system; Z79.899 Other long term (current) drug therapy; Z87.11 Personal history of peptic ulcer disease; Z93.2 Ileostomy status; Z87.442 Personal history of urinary calculi; Z90.49 Acquired absence of other specified parts of digestive tract; Z96.0 Presence of urogenital implants; Z91.048 Other nonmedicinal substance allergy status; Z88.6 Allergy status to analgesic agent; Z84.89 Family history of other specified conditions; Z86.010 Personal history of colon polyps
CPT/HCPCS: 99285; 96376; 96361 ×2; 96374; 96375 ×2; 36415; 80053; 80048; 82150; 83690; 85025 ×2; 81001; 87635; 74018; 74176; G0378; J2270 ×2; J2405; J1170; C9113

== ENCOUNTER → 2021-10-18 | Outpatient (CLI) | payer MEDICARE ==
--- NOTE | 2021-10-19 08:40 | CA ---
Transthoracic Echo Report Name: Jay Clancy Age: 55 Gender: M : 1965 Exam Date: 10/18/2021 14:28 Exam Location: [facility] Ht (in): 72 Wt (lb): 240 Ordering Physician: William Barger MD Attending/Referring Phys: Sales Market Leader Yael Parkinson RDCS Procedure CPT: Indications: aortic aneurysm Cardiac Hx: Technical Quality: Good Contrast 1: N/A Total Dose (mL): Contrast 2: Total Dose (mL): MEASUREMENTS (Male / Female) Normal Values 2D ECHO LV Diastolic Diameter PLAX 3.4 cm 4.2 - 5.9 / 3.9 - 5.3 cm LV Systolic Diameter PLAX 2.5 cm IVS Diastolic Thickness 1.0 cm 0.6 - 1.0 / 0.6 - 0.9 cm LVPW Diastolic Thickness 1.6 cm 0.6 - 1.0 / 0.6 - 0.9 cm LV Relative Wall Thickness 0.8 RV Internal Dim ED PLAX 3.7 cm M-MODE Aortic Root Diameter MM 3.9 cm MV E Point Septal Separation 0.2 cm DOPPLER AV Peak Velocity 122.0 cm/s AV Peak Gradient 6.0 mmHg AV Mean Velocity 76.8 cm/s AV Mean Gradient 2.7 mmHg AV Velocity Time Integral 20.7 cm AI Peak Velocity 344.5 cm/s AI Peak Gradient 47.5 mmHg AI Pressure Half Time 387.8 ms LVOT Peak Velocity 78.4 cm/s LVOT Peak Gradient 2.5 mmHg MV Area PHT 4.0 cm??? Mitral E Point Velocity 47.4 cm/s Mitral A Point Velocity 74.0 cm/s Mitral E to A Ratio 0.6 MV Deceleration Time 188.7 ms MV E' Velocity 4.0 cm/s Mitral E to MV E' Ratio 11.8 FINDINGS Left Ventricle Normal Left ventricular size, wall thickness, systolic function with no obvious regional wall motion abnormalities. Right Ventricle Normal right ventricular size and function. Normal right ventricular size and function. Right Atrium Normal right atrial size. Left Atrium Normal left atrial size. Mitral Valve Mild mitral regurgitation. Aortic Valve [id number] aortic regurgitation. Tricuspid Valve Mild tricuspid regurgitation. Pulmonic Valve Structurally normal pulmonic valve. Pericardium Normal pericardium. Aorta Moderate aortic dilatation at the level of the sinuses of valsalva (root). measures 4.4cm. CONCLUSIONS Normal left ventricular dimension and systolic function [id number] aortic regurgitation Moderate aortic root dilated elevation at 4.4 cm Cannot rule out bicuspid aortic valve. The valve was not well-visualized Previewed by: Dr. Alfonso Castaneda MD (Electronically Signed) Final Date: 19 Oct 2021 08:39
== END | disposition home or self-care (01) ==
LOC: RADECHMAIN 13:57
PROVIDERS: ATTEND Surgery
DX: I08.3 Combined rheumatic disorders of mitral, aortic and tricuspid valves (principal)
CPT/HCPCS: 93306

== ENCOUNTER → 2021-10-25 | Outpatient (CLI) | payer MEDICARE ==
--- NOTE | 2021-10-25 10:08 | CT ---
EXAMINATION TYPE: CT soft tissue neck w con DATE OF EXAM: 10/25/2021 COMPARISON: Relation CT chest 10/03/2021 HISTORY: 55-year-old male Hemoptysis, fullness left piriform sinus TECHNIQUE: Contiguous axial scanning of the soft tissues of the neck performed with IV Contrast, shayla ent injected with 70 mL of Isovue 300. Coronal/sagittal reconstructions performed. CT DLP: 962.7 mGycm Automated exposure control for dose reduction was used. FINDINGS: The thyroid, submandibular, parotid glands appear satisfactory. Prominent but not enlarged upper cervical, Station 2 lymph nodes measuring up to 1.3 cm short axis. T hese are symmetric from side to side. Hypoplastic right vertebral artery. Visualized intracranial structures show no gross abnormality. Orb its and globes and mastoid air cells appear clear. Leftward nasal septal deviation. Moderate mucosal thickening anterior left ethmoid air cells. Evidence of prior FESS. There is soft tissue fullness in the region of the nasopharynx. This may in part relate to retained s ecretions. Correlate with direct inspection. Limited assessment of the oral cavity/tongue due to extensive dental amalgam artifact. Prominent bilateral palatine tonsils and mild lingual tonsillar hypertrophy, right greater than left. Epiglottis and prevertebral soft tissues are satisfactory. Some strandy secretions in the left piriform sinus. The aryepiglottic folds appear relatively symmetr ic at this time. Glottic and subglottic structures as well as the tracheal column appear clear. Known aneurysm of the lower ascending thoracic aorta is located outside the [id number]. Mild emphy sematous change. Scattered pleural parenchymal scarring. Mild diffuse bronchial wall thickening sugge sting COPD with bronchitis. Conventional arch vessel branching anatomy. Bones: Moderate dislocation but degenerative change C5-C7 levels with corresponding facet and uncover tebral joint arthropathy. IMPRESSION: 1. FULLNESS IN THE POSTERIOR NASOPHARYNX MAY IN PART RELATE TO RETAINED SECRETIONS. CORRELATED WITH D IRECT INSPECTION. 2. MILD BILATERAL PALATINE TONSILLAR HYPERTROPHY. MILD HYPERTROPHY OF THE RIGHT-SIDED LINGUAL TONSILS . 3. NO OBVIOUS MASS BY CT ALONG THE ARYEPIGLOTTIC FOLDS OR WITHIN THE PIRIFORM SINUSES. SOME MINIMAL S TRANDY SECRETION IS PRESENT IN THE LEFT PIRIFORM SINUS. 4. SOME BORDERLINE-SIZED UPPER CERVICAL LYMPH NODES MEASURING UP TO 1.3 CM SHORT AXIS ARE SYMMETRIC F ROM [id number], LIKELY REACTIVE.
== END | disposition home or self-care (01) ==
LOC: RADCTMAIN 07:35
PROVIDERS: ATTEND Otolaryngology
DX: J35.1 Hypertrophy of tonsils (principal)
CPT/HCPCS: 70491; Q9967

== ENCOUNTER 2021-11-14 12:37 | Day surgery (SDC) | payer MEDICARE ==
[2021-11-13 11:55] VITALS: BMI 32.9
[~2021-11-14 12:37] MED LIST: ALBUTEROL NEB (CONC) 2.5 MG/0.5 ML INHALATION ONE; ATROPINE SULFATE 0.4 MG/ML 1 ML VIAL IM ONE; LACTATED RINGERS 1,000 ML IV SCH; LIDOCAINE 1% (10MG/ML) FOR IV START INTRADERMA PRN; LIDOCAINE 2% (PF) 20 MG/ML 5 ML VIAL INHALATION ONE; LIDOCAINE VISCOUS 300 MG/15 ML CUP MUCOUS MEM ONE
[2021-11-14 13:20] VITALS: TEMP 97.6
[2021-11-14] MEDS ORDERED: fentaNYL (PF) 50 MCG/ML 2 ML AMP IVP ONE (13:20)
[2021-11-14] MEDS ORDERED: PROPOFOL 10 MG/ML 20 ML VIAL IV ONE (13:32)
[2021-11-14] MEDS ORDERED: MIDAZOLAM 2 MG/2 ML VIAL ONE (13:32)
[2021-11-14] MEDS ORDERED: LIDOCAINE 2% INJ 20 MG/ML INTRATRACH ONE (13:39)
[2021-11-14 14:30] VITALS: BP 128/83; PULSE 79; RESP 18
[2021-11-15 00:33] LABS: Appearance,BF Slightly Cloudy
--- NOTE | 2021-11-15 09:34 | PCN ---
PROCEDURE NOTE DATE OF SERVICE: 11/14/2021 PROCEDURE PERFORMED: Bronchoscopy, airway examination, therapeutic lavage, BAL. OPERATORS: Dr. Oden and Dr. Mi. PREOPERATIVE DIAGNOSIS: Increased airway secretions, cough, hemoptysis. POSTOP DIAGNOSIS: Increased airway secretions, cough, hemoptysis. DESCRIPTION OF PROCEDURE: The patient's procedure took place in room #1 [facility]. There was informed consent and universal timeout. Anesthesia provided general anesthetic. After the patient was adequately sedated and being fully monitored, the bronchoscope was inserted through the right nostril. It passed through the right nasopharynx into the oropharynx. The hypopharynx was identified and topicalized. The hypopharyngeal structures, including anterior commissure, true cords, false cords, arytenoids, piriform sinuses, right and left valleculae and epiglottis all appeared normal. The glottic opening was topicalized. The bronchoscope was pushed through the glottic opening into the trachea. The trachea did have a bit of a saber-sheath appearance. Otherwise the trachea was normal. The tracheal aries was sharp. The right and left mainstem were topicalized. After topicalization of both sides, the right upper lobe and its 3 segments, right middle lobe and its 2 segments, right lower lobe and its 5 segments, left upper lobe and its 2 segments, lingula and its 2 segments and left lower lobe and its 4 segments were all evaluated. Similar findings were noted throughout. The bronchial mucosa was erythematous and hyperemic. There was some mucosal friability. The blood vessels were somewhat engorged. There was no dominant mass or tumor. Some scant secretions were noted. The bronchoscope was then wedged into the right middle lobe. Formal BAL took place. The fluid did have a very turbid look to it. After 30 mL or so was recovered, the bronchoscope was removed from the right middle lobe and additional secretions were suctioned and the bronchoscope was removed completely from the patient's lungs. The patient tolerated the procedure well. The fluid will be sent for analysis. That would include cytology, and microbiology. The patient tolerated the procedure well and I did speak to the patient's after the procedure and gave her an update. The patient will follow up with me in the office. MMODL / IJN: [id number] /
== END 2021-11-14 14:25 | disposition home or self-care (01) ==
LOC: ORWHC2ENDO 12:37
PROVIDERS: ATTEND Internal Medicine Critical Care Medicine
DX: J44.9 Chronic obstructive pulmonary disease, unspecified (principal); J42 Unspecified chronic bronchitis; Z88.5 Allergy status to narcotic agent; Z91.048 Other nonmedicinal substance allergy status; Z79.891 Long term (current) use of opiate analgesic; Z79.899 Other long term (current) drug therapy; Z87.442 Personal history of urinary calculi; F41.9 Anxiety disorder, unspecified; I71.2 Thoracic aortic aneurysm, without rupture; K50.90 Crohn's disease, unspecified, without complications; K58.9 Irritable bowel syndrome, unspecified; Z82.3 Family history of stroke; Z98.890 Other specified postprocedural states
CPT/HCPCS: 87798 ×3; 87496; 87498; 87529; 88108; 88305; 89050; 87252; 87502; 87634; 87070; 87205; 87116; 87102; 87206; 31624; J2001; J2250; J3010; J2704

== ENCOUNTER → 2021-12-05 | Outpatient (CLI) | payer MEDICARE ==
[2021-12-05 12:18] LABS: Albumin 4.9 g/dL (3.8-4.9); Albumin/Globulin Ratio 1.51 (1.60-3.17); Anion Gap 17.1 mmol/L (10.00-18.00); BUN/Creat Ratio 15.7 Ratio (12.00-20.00); Blood Urea Nitrogen 17.9 mg/dL (9.0-27.0); Calcium 10.1 mg/dL (8.7-10.3); Carbon Dioxide 18.5 mmol/L (20.0-27.5); Globulin 3.2 g/dL (1.6-3.3); Non-African American GFR(CKD) 72.5 (60.0-200.0); Potassium 4.3 mmol/L (3.5-5.5); Total Bilirubin 0.4 mg/dL (0.30-1.20); Total Protein 8.1 g/dL (6.2-8.2)
[2021-12-05 17:05] LABS: Basophils # (A) 0.15 X 10*3/uL (0.00-0.10); Basophils % (A) 0.9 %; Eosinophils % (A) 1.2 %; HCT 56.2 % (39.6-50.0); Immature Grans, Automated 1.3 %; Lymphocytes # (A) 2.95 X 10*3/uL (0.90-5.00); MCH 28.5 pg (27.0-32.0); MCV 89.1 fL (80.0-97.0); NRBC Per 100 WBC 0 /100 WBCS (0.0-0.0); Neutrophils # (A) 11.53 X 10*3/uL (1.80-7.70); Neutrophils % (A) 70.6 %; Platelet Count 254 X 10*3/uL (140-440); RBC 6.31 X 10*6/uL (4.40-5.60); RDW 14.3 % (11.5-14.5); WBC 16.35 X 10*3/uL (4.50-10.00)
== END | disposition home or self-care (01) ==
LOC: LABWHC1 07:04
PROVIDERS: ATTEND Internal Medicine Critical Care Medicine
DX: A41.9 Sepsis, unspecified organism (principal)
CPT/HCPCS: 36415; 80053; 83605; 84145; 85025; 87040

== ENCOUNTER 2021-12-28 11:00 | Observation (INO) | payer MEDICARE ==
[2021-12-28] MEDS ORDERED: MORPHINE SULFATE 4 MG/ML SYRINGE IV STA (11:15)
[2021-12-28] MEDS ORDERED: SODIUM CHLORIDE 0.9% 500 ML 500 ML IV STA (11:15)
--- NOTE | 2021-12-28 11:23 | ED ---
General Adult HPI - General Chief complaint: Dizziness Stated complaint: dizziness Time Seen by Provider: 12/28/21 11:07 Source: patient, RN notes reviewed, old records reviewed Mode of arrival: ambulatory Limitations: no limitations - History of Present Illness Initial comments: 56-year-old male presents to the emergency room with 2 weeks of intermittent chest pain and dizziness with shortness of breath and a productive brown cough. Patient states he does smoke a pack-a-day. He was told two months ago he has an aortic aneurysm and was put on metoprolol. He went to [facility] for a second opinion and is scheduled for further testing. He states his chest pain recurs 2-3 times a day lasting about 5 minutes and is midsternal. He denies any radha phoresis, no nausea or vomiting. He denies any fevers however he states that he has had a sick contact a couple of weeks ago when a coworker tested positive for coronavirus. -: week(s) (2) Location: chest Radiation: non-radiation Severity scale (1-10): 4 Quality: other (Pressure) Consistency: intermittent Improves with: none Worsens with: none Associated Symptoms: chest pain, cough, malaise, shortness of breath, other (Numbness to both arms) - Related Data Home Medications Medication Instructions Recorded Confirmed HYDROcodone/APAP 10-325MG [[place] 1 tab PO BID PRN 03/17/14 12/28/21 10-325] ALPRAZolam [Xanax] 1 mg PO HS 05/22/15 12/28/21 diazePAM [Valium] 10 mg PO DAILY PRN 11/21/18 12/28/21 Albuterol Sulfate [Ventolin HFA] 2 puff INHALATION RT-Q6H PRN 12/28/21 12/28/21 Losartan Potassium [Cozaar] 25 mg PO HS 12/28/21 12/28/21 Metoprolol Succinate (ER) [Toprol 100 mg PO HS 12/28/21 12/28/21 Xl] Allergies Allergy/AdvReac Type Severity Reaction Status Date / Time Iodinated Contrast Media Allergy "burning Verified 12/28/21 13:31 [Iodinated Contrast Media - on the IV Dye] inside" ketorolac tromethamine Allergy swelling Verified 12/28/21 13:31 [From Toradol] at injection site Review of Systems ROS Statement: Those systems with pertinent positive or pertinent negative responses have been documented in the HPI. ROS Other: All systems not noted in ROS Statement are negative. Past Medical History Past Medical History: GERD/Reflux, Hypertension Additional Past Medical History / Comment(s): Nephrolithiasis, hematuria, crohn's disease/multiple resections and ileostomy, gastric ulcer, colon polyps, anemia, DDD, chronic back pain, numbness/tingling bilateral legs, sinus problems/seasonal allergies, History of Any Multi-Drug Resistant Organisms: None Reported Past Surgical History: Bowel Resection, Hernia Repair Additional Past Surgical History / Comment(s): cystoscopies/L ureteroscopy/lithotripsy/double J catheter insertion and removal, ureteral stent, multiple bowel resections/ileostomy, colonoscopies, incisional hernia rep air, epidural injections to back. Past Anesthesia/Blood Transfusion Reactions: No Reported Reaction Additional Past Anesthesia/Blood Transfusion Reaction / Comment(s): Pt received blood in 1979 without reaction. Past Psychological History: ADD/ADHD, Anxiety, Bipolar, Depression Smoking Status: Current every day smoker Past Alcohol Use History: Occasional Past Drug Use History: Marijuana - Past Family History Father Additional Family Medical History / Comment(s): Father is . He had a brain tumor. Pt unsure if cancerous. General Exam Limitations: no limitations General appearance: alert, in no apparent distress Head exam: Present: atraumatic, normocephalic Eye exam: Present: conjunctival injection. Absent: periorbital swelling, periorbital tenderness Neck exam: Present: normal inspection, full ROM. Absent: meningismus Respiratory exam: Present: normal lung sounds bilaterally. Absent: respiratory distress, accessory muscle use Cardiovascular Exam: Present: tachycardia GI/Abdominal exam: Present: soft. Absent: distended, tenderness Extremities exam: Present: normal capillary refill. Absent: pedal edema Back exam: Present: normal inspection, full ROM. Absent: tenderness, CVA tenderness (R), CVA tenderness (L), rash noted Neurological exam: Present: alert, oriented X3 Psychiatric exam: Present: anxious Skin exam: Present: warm, dry, normal color. Absent: cyanosis, diaphoretic Course Vital Signs 12/28/21 12/28/21 11:02 12:40 Temperature 98 F Pulse Rate 122 H 66 Respiratory 20 18 Rate Blood Pressure 110/75 100/65 O2 Sat by Pulse 98 Oximetry EKG Findings - EKG Results: EKG: sinus rhythm (Ventricular rate 92, MD interval 0.186, QRS 0.81, QTC 0.381) Medical Decision Making - Medical Decision Making There is no evidence of leukocytosis. Hemoglobin and hematocrit are stable. D- dimer is negative at 0.55. There is mild elevation in BUN and Creatinine that patient states his doctor has been monitoring. Covid is negative. Chest x-ray shows no acute cardiopulmonary process. There is degenerative changes of both shoulders which would account for patient's upper arm pain. Troponin is -0.012 EKG shows sinus rhythm with no significant ST elevation or ectopy. CTA chest performed on 10/03/2021 shows marked aneurysmal dilatation of the most inferior aspect of the ascending aorta just distal to the aortic root measuring 5.6 cm. he is undergoing medical management with labetalol. On October 18 patient had an ECHO that shows normal left ventricular systolic function. Mild to moderate aortic regurgitation. Moderate aortic dilation at 4.4 cm. Bicuspid aortic valve was not well visualized. Patient had a bronchoscopy with Dr. Oden in October of this year, there was no dominant mass or tumor found. Cytology and microbiology was sent. Patient states he was placed on Cozaar last month in addition to his metoprolol. He states that he feels winded with mild exertion. I have concerns that the patient may be having hypotensive episodes causing his exertional weakness and dizziness. Patient will be admitted to the hospital for observation and evaluation of his chest pain. - Lab Data Result diagrams: 12/28/21 11:30 12/28/21 11:30 Lab Results 12/28/21 12/28/21 12/28/21 Range/Units 11:30 11:30 11:30 WBC 12.5 H (3.8-10.6) k/uL RBC 5.57 (4.30-5.90) m/uL Hgb 16.5 (13.0-17.5) gm/dL Hct 50.3 (39.0-53.0) % MCV 90.3 (80.0-100.0) fL MCH 29.6 (25.0-35.0) pg MCHC 32.8 (31.0-37.0) g/dL RDW 13.1 (11.5-15.5) % Plt Count 267 (150-450) k/uL MPV 8.7 Neutrophils % 66 % Lymphocytes % 23 % Monocytes % 7 % Eosinophils % 1 % Basophils % 1 % Neutrophils # 8.2 H (1.3-7.7) k/uL Lymphocytes # 2.9 (1.0-4.8) k/uL Monocytes # 0.9 (0-1.0) k/uL Eosinophils # 0.1 (0-0.7) k/uL Basophils # 0.1 (0-0.2) k/uL PT 9.8 (9.0-12.0) sec INR 0.9 (<1.2) APTT 26.9 (22.0-30.0) sec D-Dimer 0.55 (<0.60) mg/L FEU Sodium 135 L (137-145) mmol/L Potassium 4.8 (3.5-5.1) mmol/L Chloride 108 H (98-107) mmol/L Carbon Dioxide 19 L (22-30) mmol/L Anion Gap 8 mmol/L BUN 32 H (9-20) mg/dL Creatinine 1.65 H (0.66-1.25) mg/dL Est GFR (CKD-EPI)AfAm 54 (>60 ml/min/1.73 sqM) Est GFR (CKD-EPI)NonAf 46 (>60 ml/min/1.73 sqM) Glucose 105 H (74-99) mg/dL Calcium 9.5 (8.4-10.2) mg/dL Magnesium 2.1 (1.6-2.3) mg/dL Total Bilirubin 0.5 (0.2-1.3) mg/dL AST 28 (17-59) U/L ALT 27 (4-49) U/L Alkaline Phosphatase 90 (38-126) U/L Troponin I (0.000-0.034) ng/mL Total Protein 7.8 (6.3-8.2) g/dL Albumin 4.6 (3.5-5.0) g/dL Coronavirus (PCR) (Not Detectd) 12/28/21 12/28/21 Range/Units 11:30 11:30 WBC (3.8-10.6) k/uL RBC (4.30-5.90) m/uL Hgb (13.0-17.5) gm/dL Hct (39.0-53.0) % MCV (80.0-100.0) fL MCH (25.0-35.0) pg MCHC (31.0-37.0) g/dL RDW (11.5-15.5) % Plt Count (150-450) k/uL MPV Neutrophils % % Lymphocytes % % Monocytes % % Eosinophils % % Basophils % % Neutrophils # (1.3-7.7) k/uL Lymphocytes # (1.0-4.8) k/uL Monocytes # (0-1.0) k/uL Eosinophils # (0-0.7) k/uL Basophils # (0-0.2) k/uL PT (9.0-12.0) sec INR (<1.2) APTT (22.0-30.0) sec D-Dimer (<0.60) mg/L FEU Sodium (137-145) mmol/L Potassium (3.5-5.1) mmol/L Chloride (98-107) mmol/L Carbon Dioxide (22-30) mmol/L Anion Gap mmol/L BUN (9-20) mg/dL Creatinine (0.66-1.25) mg/dL Est GFR (CKD-EPI)AfAm (>60 ml/min/1.73 sqM) Est GFR (CKD-EPI)NonAf (>60 ml/min/1.73 sqM) Glucose (74-99) mg/dL Calcium (8.4-10.2) mg/dL Magnesium (1.6-2.3) mg/dL Total Bilirubin (0.2-1.3) mg/dL AST (17-59) U/L ALT (4-49) U/L Alkaline Phosphatase (38-126) U/L Troponin I <0.012 (0.000-0.034) ng/mL Total Protein (6.3-8.2) g/dL Albumin (3.5-5.0) g/dL Coronavirus (PCR) Not Detected (Not Detectd) Disposition Clinical Impression: Chest pain Disposition: ADMITTED IP TO THIS [facility] Decision Date: 12/28/21 Decision Time: 13:10
[2021-12-28 12:01] LABS: Basophils # (A) 0.1 k/uL (0-0.2); Basophils % (A) 1 %; Eosinophils # (A) 0.1 k/uL (0-0.7); Eosinophils % (A) 1 %; HCT 50.3 % (39.0-53.0); HGB 16.5 gm/dL (13.0-17.5); Lymphocytes # (A) 2.9 k/uL (1.0-4.8); Lymphocytes % (A) 23 %; MCH 29.6 pg (25.0-35.0); MCHC 32.8 g/dL (31.0-37.0); MCV 90.3 fL (80.0-100.0); Mean Platelet Volume 8.7; Monocytes # (A) 0.9 k/uL (0-1.0); Monocytes % (A) 7 %; Neutrophils # (A) 8.2 k/uL (1.3-7.7); Neutrophils % (A) 66 %; Platelet Count 267 k/uL (150-450); RBC 5.57 m/uL (4.30-5.90); RDW 13.1 % (11.5-15.5); WBC 12.5 k/uL (3.8-10.6)
--- NOTE | 2021-12-28 12:09 | XR ---
EXAMINATION TYPE: XR chest 2V DATE OF EXAM: 12/28/2021 11:56 AM COMPARISON: Chest radiographs from 07/01/2016 TECHNIQUE: XR chest 2V Frontal and lateral views of the chest. CLINICAL INDICATION:Male, 56 years old with history of Chest Pain; FINDINGS: Lungs/Pleura: There is no evidence of pleural effusion, focal consolidation, or pneumothorax. Pulmonary vascularity: Unremarkable. Heart/mediastinum: Cardiomediastinal silhouette is unremarkable. Musculoskeletal: Degenerative changes of the shoulder joints. IMPRESSION: No acute cardiopulmonary disease/process.
[2021-12-28 12:14] LABS: Albumin 4.6 g/dL (3.5-5.0); Calcium 9.5 mg/dL (8.4-10.2); INR 0.9 (<1.2); Magnesium 2.1 mg/dL (1.6-2.3); Partial Thromboplastin Time 26.9 sec (22.0-30.0); Potassium 4.8 mmol/L (3.5-5.1); Prothrombin Time 9.8 sec (9.0-12.0); Total Bilirubin 0.5 mg/dL (0.2-1.3); Total Protein 7.8 g/dL (6.3-8.2)
[2021-12-28] MEDS ORDERED: ACETAMINOPHEN TAB 325 MG TAB PO PRN (13:15)
[2021-12-28] MEDS ORDERED: NALOXONE 0.4 MG/ML 1 ML VIAL IV PRN (13:15)
[2021-12-28] MEDS ORDERED: HYDROmorphone 0.5 MG/0.5 ML SYRINGE IVP PRN (13:15)
[2021-12-28] MEDS ORDERED: diazePAM 5 MG TAB PO PRN (13:38)
[2021-12-28] MEDS ORDERED: HYDROcodone/APAP 10-325MG 1 EACH TAB PO PRN (13:38)
[2021-12-28] MEDS ORDERED: ALBUTEROL NEBULIZED 2.5 MG/3 ML INHALATION PRN (13:38)
[2021-12-28] MEDS ORDERED: ASPIRIN 81 MG PO STA (15:31)
[2021-12-28] MEDS: SODIUM CHLORIDE 0.9% 1,000 ML IV SCH ×2 (15:45→20:36)
[2021-12-28] MEDS: PANTOPRAZOLE 40 MG/10 ML VIAL IVP SCH (15:45)
[2021-12-28] MEDS: NICOTINE 21MG/24HR PATCH TRANSDERM SCH ×2 (15:45→22:18)
[2021-12-28] MEDS: HEPARIN SODIUM,PORCINE/PF 5,000 UNIT/0.5 ML SYRINGE SQ SCH ×2 (15:45→23:49)
--- NOTE | 2021-12-28 16:44 | P.HPIM ---
History of Present Illness H&P Date: 12/28/21 History of Presenting Illness: Patient is a very pleasant 56-year-old male with a past medical history of hypertension, ascending aortic aneurysm recently measured at 4.4 cm, GERD with previously known gastric ulcer, Crohn's disease status post multiple bowel resections and ileostomy, chronic back pain with chronic intermittent numbness/tingling in extremities, anxiety, depression, bipolar disorder, cannabis use and nicotine dependence smoking one pack of cigarettes daily. P heriberto presented to the emergency department with a chief complaint of chest pain, dizziness, generalized fatigue, shortness of breath, and productive cough. Patient reports the symptoms began approximately 2 weeks ago and progressively worsened. Patient states he was concerned because he was diagnosed with an aortic aneurysm 2 months ago and started on metoprolol. Patient reports he has been experiencing intermittent chest pain/discomfort described as pressure. Patient reports this pain remains to midsternal chest and denies any radiation of pain. Patient reports this pain isn't associated with generalized fatigue, dizziness/lightheadedness, shortness of breath and productive cough with brown sputum. Patient denies any recent fevers, chills, diaphoresis, headache, palpitations, no pain, nausea, vomiting, or experiencing any numbness/tingling/weakness/swelling in his extremities. Patient does report recent exposure to Covid from a coworker 2 weeks ago. Patient underwent full ev aluation in the emergency department. EKG was completed showing normal sinus rhythm and 92 bpm with no noted T wave or ST abnormality showing no signs of acute ischemia. Troponin negative at less than 0.012. CBC revealing mild leukocytosis with WBC count of 12.5. CMP revealing non-anion gap acidosis with chloride of 108 and bicarb of 19 with anion gap of 8 as well as an acute kidney injury with BUN of 32, creatinine 1.65, and GFR of 65 with baseline creatinine of 1.1. Covid PCR was negative. Chest x-ray negative for acute cardiopulmonary process. Patient admitted under our services of consultation to cardiology and cardiothoracic surgery. Review of systems: Pertinent positives and negatives as discussed in HPI, a complete review of systems was performed and all other systems are negative. Physical exam: Vital signs reviewed and stable. General: Nontoxic, no distress and appears stated age. Derm: Skin warm and dry, normal coloration for ethnicity. Head: Atraumatic, normocephalic and symmetric. Eyes: EOMs intact, no lid lag, and anicteric sclera Mouth: no lip lesions, mucus membranes moist Cardiovascular: regular rate and rhythm with normal S1S2, no murmur, positive posterior tibial pulses bilaterally, and cap refill < 2 seconds. Lungs: Respirations even, regular, and unlabored on room air. Lungs slightly diminished with no rhonchi, no rales, no wheezing, and no accessory muscle usage. Abdominal: soft, nontender to palpation, no guarding, no appreciable org anomegaly. Ileostomy in place. Ext: ROM intact. No gross muscle atrophy, no edema, no contractures Neuro: Speech clear, face symmetrical and CN II-XII grossly intact with no noted focal neuro deficits Psych: Alert and oriented to person, place, time, and situation. Appropriate and pleasant affect. Assessment and Plan of Care: Chest pain, rule out acute coronary event Ascending Aortic Aneurysm, recently measured 4.4 cm at aortic root -Cardiology consulted, appreciate further recommendations -Cardiothoracic surgery consulted -Telemetry monitoring -Trend troponins -Cardiac diet, NPO at midnight -Continue daily aspirin and metoprolol. -Lipid profile with a.m. labs -Echocardiogram completed 10/18/21 revealed preserved EF with normal left ventricular dimension and systolic function, mild to moderate aortic regurgitation, and moderate aortic root dilation at 4.4 cm. Acute kidney injury -BUN 32, creatinine 1.65, and GFR of 46. Baseline creatinine 1.1. -IV fluid hydration -Hold nephrotoxic medications including losartan -Continue close monitoring with repeat a.m. labs Hypertension -Monitor vital signs and continue daily medication regimen with metoprolol. Losartan held at this time secondary to acute kidney injury. Anxiety, depression, and bipolar disorder -Continue daily medication regimen with Xanax 1 mg nightly. Nicotine dependence -Recommend smoking cessation -Nicotine patch The patient is admitted with an anticipated less than 2 midnight stay for evaluation of Chest pain CODE STATUS: Full code DVT prophylaxis: Heparin Discussed with: Patient,and patient's and RN Anticipated discharge date: Likely tomorrow Anticipated discharge place: Home A total of 47 minutes was spent on the care of this complex patient more than 50% of the time was spent in counseling and care coordination. I reviewed the documentation as provided by the DEE above, who is the original author of this note. I agree with the documented assessment and plan, with the following changes: none Past Medical History Past Medical History: GERD/Reflux, Hypertension Additional Past Medical History / Comment(s): Nephrolithiasis, hematuria, crohn's disease/multiple resections and ileostomy, gastric ulcer, colon polyps, anemia, DDD, chronic back pain, numbness/tingling bilateral legs, sinus problems/seasonal allergies, History of Any Multi-Drug Resistant Organisms: None Reported Past Surgical History: Bowel Resection, Hernia Repair Additional Past Surgical History / Comment(s): cystoscopies/L ureteroscopy /lithotripsy/double J catheter insertion and removal, ureteral stent, multiple bowel resections/ileostomy, colonoscopies, incisional hernia repair, epidural injections to back. Past Anesthesia/Blood Transfusion Reactions: No Reported Reaction Additional Past Anesthesia/Blood Transfusion Reaction / Comment(s): Pt received blood in 1979 without reaction. Past Psychological History: ADD/ADHD, Anxiety, Bipolar, Depression Smoking Status: Current every day smoker Past Alcohol Use History: Occasional Past Drug Use History: Marijuana - Past Family History Father Additional Family Medical History / Comment(s): Father is . He had a brain tumor. Pt unsure if cancerous. Medications and Allergies Home Medications Medication Instructions Recorded Confirmed Type HYDROcodone/APAP 10-325MG [[place] 1 tab PO BID PRN 03/17/14 12/28/21 History 10-325] ALPRAZolam [Xanax] 1 mg PO HS 05/22/15 12/28/21 History diazePAM [Valium] 10 mg PO DAILY PRN 11/21/18 12/28/21 History Albuterol Sulfate [Ventolin HFA] 2 puff INHALATION RT-Q6H PRN 12/28/21 12/28/21 History Losartan Potassium [Cozaar] 25 mg PO HS 12/28/21 12/28/21 History Metoprolol Succinate (ER) [Toprol 100 mg PO HS 12/28/21 12/28/21 History Xl] Allergies Allergy/AdvReac Type Severity Reaction Status Date / Time Iodinated Contrast Media Allergy "burning Verified 12/28/21 13:31 [Iodinated Contrast Media - on the IV Dye] inside" ketorolac tromethamine Allergy swelling Verified 12/28/21 13:31 [From Toradol] at injection site Physical Exam Vitals: Vital Signs Temp Pulse Pulse Resp BP BP Pulse Ox 12/28/21 14:21 97.6 F 84 16 115/69 96 12/28/21 12:40 66 18 100/65 12/28/21 11:02 98 F 122 H 20 110/75 98 Intake and Output 12/28/21 12/28/21 12/28/21 06:59 14:59 22:59 Other: # Voids 1 Weight 104.326 kg Results CBC & Chem 7: 12/29/21 06:24 12/29/21 06:24 Labs: Abnormal Lab Results - Last 24 Hours (Table) 12/28/21 12/28/21 Range/Units 11:30 11:30 WBC 12.5 H (3.8-10.6) k/uL Neutrophils # 8.2 H (1.3-7.7) k/uL Sodium 135 L (137-145) mmol/L Chloride 108 H (98-107) mmol/L Carbon Dioxide 19 L (22-30) mmol/L BUN 32 H (9-20) mg/dL Creatinine 1.65 H (0.66-1.25) mg/dL Glucose 105 H (74-99) mg/dL Thrombosis Risk Factor Assmnt - Choose All That Apply Each Factor Represents 1 point: Age 41-60 years Thrombosis Risk Factor Assessment Total Risk Factor Score: 1 Thrombosis Risk Factor Assessment Level: Low Risk
[2021-12-28] MEDS: HYDROmorphone 1 MG/ML 1 ML SYRINGE IVP PRN ×2 (18:18→23:49)
[2021-12-28] MEDS ORDERED: ALPRAZolam 1 MG TAB PO SCH (21:00)
[2021-12-28] MEDS ORDERED: METOPROLOL SUCCINATE (ER) 100 MG TAB.ER.24H PO SCH (21:00)
[2021-12-28] MEDS ORDERED: LOSARTAN 25 MG TAB PO SCH (21:00)
[2021-12-29 04:29] VITALS: RESP 18
[2021-12-29 07:39] VITALS: BP 113/72; PULSE 66; TEMP 98
[2021-12-29] MEDS: HYDROmorphone 1 MG/ML 1 ML SYRINGE IVP PRN (07:51)
[2021-12-29] MEDS: PANTOPRAZOLE 40 MG/10 ML VIAL IVP SCH (07:53)
[2021-12-29] MEDS: HEPARIN SODIUM,PORCINE/PF 5,000 UNIT/0.5 ML SYRINGE SQ SCH (07:53)
[2021-12-29 08:45] LABS: HCT 46.7 % (39.6-50.0); HGB 15.1 g/dL (13.0-17.0); MCH 28.5 pg (27.0-32.0); MCHC 32.3 g/dL (32.0-37.0); MCV 88.1 fL (80.0-97.0); Mean Platelet Volume 11.6 fL (9.5-12.2); NRBC Per 100 WBC 0 /100 WBCS (0.0-0.0); Platelet Count 227 X 10*3/uL (140-440); RDW 13.6 % (11.5-14.5); WBC 8.83 X 10*3/uL (4.50-10.00)
[2021-12-29 08:56] LABS: ALT 25 U/L (10-49); AST 20 U/L (14-35); African American GFR (CKD) 115.6 (60.0-200.0); Albumin 3.9 g/dL (3.8-4.9); Albumin/Globulin Ratio 1.63 (1.60-3.17); Alkaline Phosphatase 88 U/L (41-126); BUN/Creat Ratio 26.11 Ratio (12.00-20.00); Blood Urea Nitrogen 21.7 mg/dL (9.0-27.0); Calcium 8.6 mg/dL (8.7-10.3); Carbon Dioxide 19.7 mmol/L (20.0-27.5); Chloride 107 mmol/L (96-109); Chol/HDL Ratio 5.83 Ratio; Globulin 2.4 g/dL (1.6-3.3); Glucose 101 mg/dL (70-110); LDL Cholesterol,Calculated 83.2 mg/dL (0.0-131.0); Non-African American GFR(CKD) 99.7 (60.0-200.0); Potassium 4.3 mmol/L (3.5-5.5); Sodium 135 mmol/L (135-145); Total Bilirubin <0.15 mg/dL (0.30-1.20); Total Protein 6.4 g/dL (6.2-8.2)
[2021-12-29] MEDS ORDERED: ASPIRIN 81 MG PO SCH (09:00)
--- NOTE | 2021-12-29 11:23 | P.CRDCN ---
History of Present Illness Consult date: 12/29/21 Chief complaint: Chest pain History of present illness: The patient is a pleasant 56-year-old gentleman with a past medical history significant for thoracic aortic aneurysm involving the ascending aorta presented to the hospital complaining of chest discomfort. He was in his usual state of altered yesterday when he started experiencing discomfort in the middle of the chest as a dull kind of discomfort. No radiation of the discomfort to the arms or neck or shoulders or back. No associated symptoms of shortness of breath or sweating or dizziness or lightheadedness or any presyncope or syncope. He is not to have an ascending aortic aneurysm and he underwent a workup for that in September 2019 showed an ascending aortic aneurysm of 5.3 cm. Subsequently he scheduled to follow-up with the cardiothoracic surgeon and he continues to follow-up with the surgeon regarding that. During this admission he underwent a workup including EKG showing sinus rhythm was no significant ST or T-wave abnormalities. He also underwent cardiac enzymes came in to be unremarkable with a chest x-ray did not show any acute abnormalities. I had a discussion with the patient as well as his in the room. Definitely severe CAD be ruled out. Depends on the size of the aneurysm with assess the need to undergo either a stress test if the aneurysm is not in process to have surgery in the next few weeks. Otherwise the patient might benefit from coronary angiogram if there is a plan to have surgery on the aneurysm soon. The patient is in process to have a computed tomography scan of the chest in the next few hours and will follow-up on that and further recommendation to follow that. Past Medical History Past Medical History: GERD/Reflux, Hypertension Additional Past Medical History / Comment(s): Nephrolithiasis, hematuria, crohn's disease/multiple resections and ileostomy, gastric ulcer, colon polyps, anemia, DDD, chronic back pain, numbness/tingling bilateral legs, sinus probl ems/seasonal allergies, History of Any Multi-Drug Resistant Organisms: None Reported Past Surgical History: Bowel Resection, Hernia Repair Additional Past Surgical History / Comment(s): cystoscopies/L ureteroscopy/lithotripsy/double J catheter insertion and removal, ureteral stent, multiple bowel resections/ileostomy, colonoscopies, incisional hernia repair, epidural injections to back. Past Anesthesia/Blood Transfusion Reactions: No Reported Reaction Additional Past Anesthesia/Blood Transfusion Reaction / Comment(s): Pt received blood in 1979 without reaction. Past Psychological History: ADD/ADHD, Anxiety, Bipolar, Depression Smoking Status: Current every day smoker Past Alcohol Use History: Occasional Past Drug Use History: Marijuana - Past Family History Father Additional Family Medical History / Comment(s): Father is . He had a brain tumor. Pt unsure if cancerous. Medications and Allergies Home Medications Medication Instructions Recorded Confirmed Type HYDROcodone/APAP 10-325MG [[place] 1 tab PO BID PRN 03/17/14 12/28/21 History 10-325] ALPRAZolam [Xanax] 1 mg PO HS 05/22/15 12/28/21 History diazePAM [Valium] 10 mg PO DAILY PRN 11/21/18 12/28/21 History Albuterol Sulfate [Ventolin HFA] 2 puff INHALATION RT-Q6H PRN 12/28/21 12/28/21 History Losartan Potassium [Cozaar] 25 mg PO HS 12/28/21 12/28/21 History Metoprolol Succinate (ER) [Toprol 100 mg PO HS 12/28/21 12/28/21 History Xl] Allergies Allergy/AdvReac Type Severity Reaction Status Date / Time Iodinated Contrast Media Allergy "burning Verified 12/28/21 13:31 [Iodinated Contrast Media - on the IV Dye] inside" ketorolac tromethamine Allergy swelling Verified 12/28/21 13:31 [From Toradol] at injection site Physical Exam Vitals: Vital Signs Temp Pulse Pulse Resp BP BP Pulse Ox 12/29/21 07:00 98 F 66 18 113/72 96 12/29/21 02:50 97.4 F L 72 18 100/62 95 12/29/21 01:31 82 17 12/28/21 20:22 97.4 F L 82 17 128/72 96 12/28/21 20:00 69 12/28/21 14:21 97.6 F 84 16 115/69 96 12/28/21 12:40 66 18 100/65 Intake and Output 12/28/21 12/29/21 12/29/21 22:59 06:59 14:59 Other: Voiding Method Toilet Toilet Toilet # Voids 1 2 - Constitutional General appearance: no acute distress - Respiratory Respiratory: bilateral: CTA - Cardiovascular Rhythm: regular Heart sounds: normal: S1, S2 Results 12/29/21 06:24 12/29/21 06:24 Cardiac Enzymes 12/28/21 12/28/21 12/28/21 Range/Units 11:30 11:30 16:05 AST 28 (17-59) U/L Troponin I <0.012 <0.012 (0.000-0.034) ng/mL 12/28/21 12/29/21 Range/Units 18:01 06:24 AST 20 (17-59) U/L Troponin I <0.012 (0.000-0.034) ng/mL Coagulation 12/28/21 Range/Units 11:30 PT 9.8 (9.0-12.0) sec APTT 26.9 (22.0-30.0) sec Lipids 12/29/21 Range/Units 06:24 Triglycerides 255.00 H (0.00-149.00) mg/dL Cholesterol 162.00 (0.00-200.00) mg/dL HDL Cholesterol 27.80 L (40.00-60.00) mg/dL Cholesterol/HDL Ratio 5.83 Ratio CBC 12/28/21 12/29/21 Range/Units 11:30 06:24 WBC 12.5 H 8.83 (3.8-10.6) k/uL RBC 5.57 5.30 (4.30-5.90) m/uL Hgb 16.5 15.1 (13.0-17.5) gm/dL Hct 50.3 46.7 (39.0-53.0) % Plt Count 267 227 (150-450) k/uL Comprehensive Metabolic Panel 12/28/21 12/29/21 Range/Units 11:30 06:24 Sodium 135 L 135 (137-145) mmol/L Potassium 4.8 4.3 (3.5-5.1) mmol/L Chloride 108 H 107 (98-107) mmol/L Carbon Dioxide 19 L 19.7 L (22-30) mmol/L BUN 32 H 21.7 (9-20) mg/dL Creatinine 1.65 H 0.8 (0.66-1.25) mg/dL Glucose 105 H 101 (74-99) mg/dL Calcium 9.5 8.6 L (8.4-10.2) mg/dL AST 28 20 (17-59) U/L ALT 27 25 (4-49) U/L Alkaline Phosphatase 90 88 (38-126) U/L Total Protein 7.8 6.4 (6.3-8.2) g/dL Albumin 4.6 3.9 (3.5-5.0) g/dL Intake and Output 12/28/21 12/29/21 12/29/21 22:59 06:59 14:59 Other: Voiding Method Toilet Toilet Toilet # Voids 1 2 12/29/21 06:24 12/29/21 06:24 Assessment and Plan Assessment: Assessment #1 atypical chest discomfort #2 ascending aortic aneurysm Plan #1 acute coronary event was ruled out #2 the patient is in process of having a computed tomography scan of the chest #3 follow-up with the patient and address the need to rule out severe CAD either by invasive or noninvasive testing
--- NOTE | 2021-12-29 12:21 | P.GSCN ---
History of Present Illness Consult date: 12/29/21 Reason for Consult: Ascending aortic aneurysm, known to our service Requesting physician: Scar Perdue History of present illness: This is a 56-year-old gentleman with a history of multiple medical problems including known ascending aortic aneurysm, COPD with current tobacco dependence, chronic back pain, generalized anxiety/bipolar disorder. He was seen by Dr. Barger in September of this year for ascending aortic aneurysm measuring 5.2 cm in diameter without evidence of pericardial effusion or dissection. He was recomm ended at that time to repeat his computed tomography scan in 3 months for comparison. He was also recommended to quit smoking, keep blood pressure controlled with beta blockers, and avoid any strenuous activity. He did seek a second opinion at [facility], per the patient has chosen not to have anything done at [facility] but was told the same restrictions. We scheduled this gentleman for repeat CT scan January 08, however he presented to [facility] emergency room last night with complaints of occasional chest discomfort and dizziness which is relieved with rest. He was kept for observation with consultation placed to cardiology who did rule out acute coronary event. Consultation was placed to cardiothoracic surgery for recommendations regarding ascending aortic aneurysm. Review of Systems Review of systems was completed and was negative except as noted. The patient continues to complain of vague symptoms - Cardiovascular Cardiovascular Comment(s): Dizziness Reports as per HPI, Reports chest pain Past Medical History Past Medical History: GERD/Reflux, Hypertension Additional Past Medical History / Comment(s): Nephrolithiasis, hematuria, crohn's disease/multiple resections and ileostomy, gastric ulcer, colon polyps, anemia, DDD, chronic back pain, numbness/tingling bilateral legs, sinus problems/seasonal allergies, History of Any Multi-Drug Resistant Organisms: None Reported Past Surgical History: Bowel Resection, Hernia Repair Additional Past Surgical History / Comment(s): cystoscopies/L ureteroscopy/lithotripsy/double J catheter insertion and removal, ureteral stent, multiple bowel resections/ileostomy, colonoscopies, incisional hernia repair, epidural injections to back. Past Anesthesia/Blood Transfusion Reactions: No Reported Reaction Additional Past Anesthesia/Blood Transfusion Reaction / Comm: Pt received blood in 1979 without reaction. Past Psychological History: ADD/ADHD, Anxiety, Bipolar, Depression Smoking Status: Current every day smoker Past Alcohol Use History: Occasional Past Drug Use History: Marijuana - Past Family History Father Additional Family Medical History / Comment(s): Father is . He had a brain tumor. Pt unsure if cancerous. Medications and Allergies Home Medications Medication Instructions Recorded Confirmed Type HYDROcodone/APAP 10-325MG [[place] 1 tab PO BID PRN 03/17/14 12/28/21 History 10-325] ALPRAZolam [Xanax] 1 mg PO HS 05/22/15 12/28/21 History diazePAM [Valium] 10 mg PO DAILY PRN 11/21/18 12/28/21 History Albuterol Sulfate [Ventolin HFA] 2 puff INHALATION RT-Q6H PRN 12/28/21 12/28/21 History Losartan Potassium [Cozaar] 25 mg PO HS 12/28/21 12/28/21 History Metoprolol Succinate (ER) [Toprol 100 mg PO HS 12/28/21 12/28/21 History Xl] Allergies Allergy/AdvReac Type Severity Reaction Status Date / Time Iodinated Contrast Media Allergy "burning Verified 12/28/21 13:31 [Iodinated Contrast Media - on the IV Dye] inside" ketorolac tromethamine Allergy swelling Verified 12/28/21 13:31 [From Toradol] at injection site Surgical - Exam Vital Signs Temp Pulse Resp BP Pulse Ox 98 F 122 H 20 110/75 98 12/28/21 11:02 12/28/21 11:02 12/28/21 11:02 12/28/21 11:02 12/28/21 11:02 CONSTITUTIONAL: Awake and alert, appears comfortable, cooperative, well- developed, well-nourished, no acute distress EYES: Pupils equal, round, reactive to light, normal ocular movement ENT: Moist mucous membranes without oral lesions present NECK: No masses, no bruits, trachea midline RESPIRATORY: Lungs sounds diminished bilaterally. Respirations even, nonlabored. Currently on room air with oxygen saturation 96%. Strong cough. CARDIOVASCULAR: S1, S2 present. Regular rate and rhythm. Palpable peripheral pulses bilaterally. No edema present. GASTROINTESTINAL: Abdomen soft, nontender, nondistended without masses or organomegaly noted. There is no rebound or guarding present. Active bowel sounds present 4 quadrants. GENITOURINARY: Deferred INTEGUMENTARY: Skin is warm and dry with evidence of good perfusion. NEUROLOGIC: Cranial nerves II through XII intact, normal coordination, no obvious motor or sensory deficits, speech is normal MUSKULOSKELETAL: Able to move all extremities, strength equal bilaterally, normal posture PSYCHIATRIC: Alert and oriented to person place and time, appropriate affect, intact judgment and insight Results - Labs 12/29/21 06:24 12/29/21 06:24 Abnormal Lab Results - Last 24 Hours (Table) 12/28/21 12/29/21 Range/Units 11:30 06:24 Sodium 135 L (137-145) mmol/L Chloride 108 H (98-107) mmol/L Carbon Dioxide 19 L 19.7 L (22-30) mmol/L Anion Gap 8.60 L (10.00-18.00) mmol/L BUN 32 H (9-20) mg/dL Creatinine 1.65 H (0.66-1.25) mg/dL BUN/Creatinine Ratio 26.11 H (12.00-20.00) Ratio Glucose 105 H (74-99) mg/dL Calcium 8.6 L (8.7-10.3) mg/dL Total Bilirubin <0.15 L (0.30-1.20) mg/dL Triglycerides 255.00 H (0.00-149.00) mg/dL VLDL Cholesterol, Calc 51.00 H (5.00-40.00) mg/dL HDL Cholesterol 27.80 L (40.00-60.00) mg/dL Diabetes panel 12/28/21 12/29/21 Range/Units 11:30 06:24 Sodium 135 L 135 (137-145) mmol/L Potassium 4.8 4.3 (3.5-5.1) mmol/L Chloride 108 H 107 (98-107) mmol/L Carbon Dioxide 19 L 19.7 L (22-30) mmol/L BUN 32 H 21.7 (9-20) mg/dL Creatinine 1.65 H 0.8 (0.66-1.25) mg/dL Glucose 105 H 101 (74-99) mg/dL Calcium 9.5 8.6 L (8.4-10.2) mg/dL AST 28 20 (17-59) U/L ALT 27 25 (4-49) U/L Alkaline Phosphatase 90 88 (38-126) U/L Total Protein 7.8 6.4 (6.3-8.2) g/dL Albumin 4.6 3.9 (3.5-5.0) g/dL Triglycerides 255.00 H (0.00-149.00) mg/dL HDL Cholesterol 27.80 L (40.00-60.00) mg/dL Calcium panel 12/28/21 12/29/21 Range/Units 11:30 06:24 Calcium 9.5 8.6 L (8.4-10.2) mg/dL Albumin 4.6 3.9 (3.5-5.0) g/dL Pituitary panel 12/28/21 12/29/21 Range/Units 11:30 06:24 Sodium 135 L 135 (137-145) mmol/L Potassium 4.8 4.3 (3.5-5.1) mmol/L Chloride 108 H 107 (98-107) mmol/L Carbon Dioxide 19 L 19.7 L (22-30) mmol/L BUN 32 H 21.7 (9-20) mg/dL Creatinine 1.65 H 0.8 (0.66-1.25) mg/dL Glucose 105 H 101 (74-99) mg/dL Calcium 9.5 8.6 L (8.4-10.2) mg/dL Adrenal panel 12/28/21 12/29/21 Range/Units 11:30 06:24 Sodium 135 L 135 (137-145) mmol/L Potassium 4.8 4.3 (3.5-5.1) mmol/L Chloride 108 H 107 (98-107) mmol/L Carbon Dioxide 19 L 19.7 L (22-30) mmol/L BUN 32 H 21.7 (9-20) mg/dL Creatinine 1.65 H 0.8 (0.66-1.25) mg/dL Glucose 105 H 101 (74-99) mg/dL Calcium 9.5 8.6 L (8.4-10.2) mg/dL Total Bilirubin 0.5 <0.15 L (0.2-1.3) mg/dL AST 28 20 (17-59) U/L ALT 27 25 (4-49) U/L Alkaline Phosphatase 90 88 (38-126) U/L Total Protein 7.8 6.4 (6.3-8.2) g/dL Albumin 4.6 3.9 (3.5-5.0) g/dL Assessment and Plan Assessment: 1. Known ascending aortic aneurysm, measuring 5.2 cm in September 2021 2. Chest discomfort, dizziness, acute coronary event ruled out 3. COPD with current tobacco dependence 4. Chronic back pain 5. Generalized anxiety/bipolar disorder Plan: The patient was seen and examined at the bedside. Chart/diagnostics reviewed. The case was discussed in detail with Dr. Barger. Since the patient was already scheduled for outpatient computed tomography scan in a couple of weeks we of fered to have his computed tomography scan completed here during this admission, the patient was agreeable. The patient expressed irritation that he is not allowed to overexert himself as he feels this is significantly affecting his lifestyle, he wants surgery done now so he can get back to normal lifestyle. It was explained to the patient that as of his CAT scan results in May the risks of surgery outweigh the benefits. We need to repeat his CAT scan to see if his aneurysm has grown and we will discuss when and if surgery is appropriate once those results are known. The patient was agreeable to this although disappointed. He was counseled to quit smoking, continue to control his blood pressure with beta blockers, and continue to avoid strenuous activity. He may follow up with Dr. Barger in the outpatient setting once his CAT scan has been completed. Thank you for this consult. Please call us with any further questions. I have personally seen and examined the patient, performed the documentation and the assessment and plan as written. Number of minutes spent on the visit: 30. GENE Mendez
== END 2021-12-29 10:40 | disposition left against medical advice (07) ==
LOC: EC 11:00 → 6NMEDSUR 13:15
PROVIDERS: ADMIT Internal Medicine; ATTEND Internal Medicine
DX: R42 Dizziness and giddiness (principal); J44.9 Chronic obstructive pulmonary disease, unspecified; Z99.81 Dependence on supplemental oxygen; F17.210 Nicotine dependence, cigarettes, uncomplicated; G89.29 Other chronic pain; M54.9 Dorsalgia, unspecified; Z20.822 Contact with and (suspected) exposure to COVID-19; F41.1 Generalized anxiety disorder; F31.9 Bipolar disorder, unspecified; I71.2 Thoracic aortic aneurysm, without rupture; K21.9 Gastro-esophageal reflux disease without esophagitis; Z87.11 Personal history of peptic ulcer disease; Z90.49 Acquired absence of other specified parts of digestive tract; Z93.2 Ileostomy status; Z87.442 Personal history of urinary calculi; K50.90 Crohn's disease, unspecified, without complications; D72.829 Elevated white blood cell count, unspecified; E87.2 Acidosis; N17.9 Acute kidney failure, unspecified; F90.9 Attention-deficit hyperactivity disorder, unspecified type; I10 Essential (primary) hypertension; Q23.1 Congenital insufficiency of aortic valve; Z86.010 Personal history of colon polyps; D64.9 Anemia, unspecified; Z79.899 Other long term (current) drug therapy
CPT/HCPCS: 96376 ×2; 96372 ×2; 96375; 96361 ×2; 96374; 99285; 36415; 93005; 85379; 80061; 80053 ×2; 83735 ×2; 84484; 85025; 85027; 85610; 85730; 87635; 71046; G0378 ×2; S4990; J2270; J1170 ×3; C9113 ×2; J1644 ×2

== ENCOUNTER → 2022-01-03 | Outpatient (CLI) | payer MEDICARE ==
--- NOTE | 2022-01-03 08:53 | CT ---
EXAMINATION TYPE: CT angio chest CT DLP: 744.3 mGycm, Automated exposure control for dose reduction was used. DATE OF EXAM: 01/03/2022 7:20 AM COMPARISON: 10/03/2021. CLINICAL INDICATION:Male, 56 years old with history of I71.2 thoracic aortic aneurysm; Thoracic aorti c aneurysm TECHNIQUE/CONTRAST: CTA scan of the thorax is performed without and with IV Contrast, patient injected with 100 mL of Iso nato 370, pulmonary embolism protocol. MIP images are created and reviewed. FINDINGS: Lungs/Pleura: No evidence of focal consolidation, pleural effusion or pneumothorax. Mild paraseptal e mphysema changes are seen in the lung apices. Mild streaky atelectasis seen within the lingula. Intra fissural lymph node noted on series 7 image 90 Airway: Large airways are grossly patent superior secretions seen layering in the trachea and right m ain bronchus. Heart: Heart is within normal limits for size. Vasculature: There is dilation of the ascending thoracic aorta sinuses of Valsalva with smooth taperi ng measuring up to 5.1 cm and sagittal orthogonal measuring. Mediastinum: No gross evidence of adenopathy. Musculoskeletal: No acute osseous abnormalities, mild multilevel disc degeneration changes throughout the visualized thoracic spine. Soft Tissues: Unremarkable. Lower neck: No significant findings. Upper Abdomen: Right upper quadrant cholecystectomy clips. IMPRESSION: 1. Mild dilation of the sinuses of Valsalva measuring up to 5.1 cm. This may be either congenital or acquired clinical correlate for connective tissue disorders such as Marfan's, Cedric-Danlos syndrome or Takayasu arteritis versus other etiologies should be considered. Cardiothoracic surgery consultati on is recommended. 2. Mild COPD changes.
== END | disposition home or self-care (01) ==
LOC: RADCTMAIN 06:49
PROVIDERS: ATTEND Surgery
DX: I71.2 Thoracic aortic aneurysm, without rupture (principal); J44.9 Chronic obstructive pulmonary disease, unspecified
CPT/HCPCS: 71275; Q9967

== ENCOUNTER 2022-04-29 14:14 | Emergency (ER) | payer MEDICARE ==
[2022-04-29 14:57] VITALS: TEMP 98
[2022-04-29 15:51] LABS: INR 0.9 (<1.2); Prothrombin Time 9.9 sec (9.0-12.0)
--- NOTE | 2022-04-29 15:54 | XR ---
EXAMINATION TYPE: XR chest 2V DATE OF EXAM: 04/29/2022 3:41 PM COMPARISON: Chest radiographs from 12/28/2021 TECHNIQUE: XR chest 2V Frontal and lateral views of the chest. CLINICAL INDICATION:Male, 56 years old with history of Chest Pain; FINDINGS: Lungs/Pleura: There is no evidence of pleural effusion, focal consolidation, or pneumothorax. Pulmonary vascularity: Unremarkable. Heart/mediastinum: Cardiomediastinal silhouette is unremarkable. Musculoskeletal: No acute osseous pathology. IMPRESSION: No acute cardiopulmonary disease/process.
[2022-04-29] MEDS ORDERED: diphenhydrAMINE 50 MG/ML 1 ML VIAL IVP STA (16:16)
[2022-04-29] MEDS ORDERED: DEXAMETHASONE SOD PHOSPHATE 10 MG/ML 1 ML VIAL IVP STA (16:16)
[2022-04-29] MEDS ORDERED: IPRATROPIUM 0.5 MG/2.5 ML NEBU INHALATION STA (16:16)
[2022-04-29] MEDS ORDERED: ALBUTEROL NEBULIZED 2.5 MG/3 ML INHALATION STA (16:16)
[2022-04-29 16:18] LABS: ALT 53 U/L (4-49); AST 55 U/L (17-59); African American GFR (CKD) >90 (>60 ml/min/1.73 sqM); Albumin 4.5 g/dL (3.5-5.0); Alkaline Phosphatase 106 U/L (38-126); Anion Gap 8 mmol/L; Blood Urea Nitrogen 15 mg/dL (9-20); Calcium 9.2 mg/dL (8.4-10.2); Carbon Dioxide 22 mmol/L (22-30); Chloride 105 mmol/L (98-107); Glucose 85 mg/dL (74-99); HGB 16.5 gm/dL (13.0-17.5); MCH 31.1 pg (25.0-35.0); MCHC 34.3 g/dL (31.0-37.0); MCV 90.6 fL (80.0-100.0); Mean Platelet Volume 10.1; Non-African American GFR(CKD) >90 (>60 ml/min/1.73 sqM); Platelet Count 174 k/uL (150-450); Potassium 4.7 mmol/L (3.5-5.1); RDW 13.2 % (11.5-15.5); Sodium 135 mmol/L (137-145); Total Bilirubin 0.3 mg/dL (0.2-1.3); Total Protein 7.6 g/dL (6.3-8.2); WBC 6.7 k/uL (3.8-10.6)
--- NOTE | 2022-04-29 16:19 | ED ---
General Adult HPI - General Chief complaint: Chest Pain Stated complaint: Side pain Time Seen by Provider: 04/29/22 16:05 Source: patient Mode of arrival: ambulatory Limitations: no limitations - History of Present Illness Initial comments: This is a 56-year-old male with a past medical history including previous hypertension, chronic aortic aneurysm, COPD and Crohn's disease status post ileostomy presents emergency department for increasing terms of breath. The patient stated he also had left flank pain as well as the right-sided chest pain that has been present since Friday. The patient stated that he originally came to this emergency department Friday but stated that it was too busy so he went to [facility]. He stated that there was a workup to rule out a kidney stone as he does have a history of previous kidney stones but stated that the workup was negative and he was discharged home. The patient stated continued left lower flank pain as well as right-sided chest pain. The patient stated that he is around multiple sick contacts including his who has a fever and multiple other family members who are sick after he did visit a family member for a in [place] last week. The patient was resting in bed with moderate pain secondary to flank pain and chest pain. The patient denied any lightheadedness or dizziness however and denied any nausea, vomiting or diaphoresis. - Related Data Home Medications Medication Instructions Recorded Confirmed HYDROcodone/APAP 10-325MG [[place] 1 tab PO BID PRN 03/17/14 04/29/22 10-325] ALPRAZolam [Xanax] 1 mg PO HS 05/22/15 04/29/22 diazePAM [Valium] 10 mg PO DAILY PRN 11/21/18 04/29/22 Albuterol Sulfate [Ventolin HFA] 2 puff INHALATION RT-Q6H PRN 12/28/21 04/29/22 Losartan Potassium [Cozaar] 25 mg PO HS 12/28/21 04/29/22 Metoprolol Succinate (ER) [Toprol 100 mg PO HS 12/28/21 04/29/22 Xl] Azithromycin [Zithromax Z Pack] See Taper PO DIRECTED 04/29/22 04/29/22 Fluticasone/Umeclidin/Vilanter 1 puff INHALATION RT-DAILY 04/29/22 04/29/22 [Trelegy Ellipta 200-62.5-25] Phentermine HCl [Adipex-P] 37.5 mg PO DAILY 04/29/22 04/29/22 Allergies Allergy/AdvReac Type Severity Reaction Status Date / Time Iodinated Contrast Media Allergy "burning Verified 04/29/22 17:35 [Iodinated Contrast Media - on the IV Dye] inside" ketorolac tromethamine Allergy swelling Verified 04/29/22 17:35 [From Toradol] at injection site Review of Systems ROS Statement: Those systems with pertinent positive or pertinent negative responses have been documented in the HPI. ROS Other: All systems not noted in ROS Statement are negative. Past Medical History Past Medical History: GERD/Reflux, Hypertension Additional Past Medical History / Comment(s): Nephrolithiasis, hematuria, crohn's disease/multiple resections and ileostomy, gastric ulcer, colon polyps, anemia, DDD, chronic back pain, numbness/tingling bilateral legs, sinus problems/seasonal allergies, History of Any Multi-Drug Resistant Organisms: None Reported Past Surgical History: Bowel Resection, Hernia Repair Additional Past Surgical History / Comment(s): cystoscopies/L ure teroscopy/lithotripsy/double J catheter insertion and removal, ureteral stent, multiple bowel resections/ileostomy, colonoscopies, incisional hernia repair, epidural injections to back. Past Anesthesia/Blood Transfusion Reactions: No Reported Reaction Additional Past Anesthesia/Blood Transfusion Reaction / Comment(s): Pt received blood in 1979 without reaction. Past Psychological History: ADD/ADHD, Anxiety, Bipolar, Depression Smoking Status: Current every day smoker Past Alcohol Use History: Occasional Past Drug Use History: Marijuana - Past Family History Father Additional Family Medical History / Comment(s): Father is . He had a brain tumor. Pt unsure if cancerous. General Exam Limitations: no limitations General appearance: alert, in no apparent distress Head exam: Present: atraumatic, normocephalic Eye exam: Present: normal appearance, PERRL Pupils: Present: normal accommodation ENT exam: Present: normal exam, normal oropharynx, mucous membranes moist Neck exam: Present: normal inspection, full ROM Respiratory exam: Present: wheezes (Expiratory wheezes heard bilaterally), other (Tenderness palpation to the right lateral anterior chest wall) Cardiovascular Exam: Present: regular rate, normal rhythm, normal heart sounds GI/Abdominal exam: Present: soft, normal bowel sounds, other (Ileostomy in place without any couple patient's noted. ) Extremities exam: Present: normal inspection, full ROM Back exam: Present: normal inspection, full ROM, tenderness (Left lateral flank pain with tenderness palpation of the superficial skin and muscles.) Neurological exam: Present: alert, oriented X3, CN II-XII intact Psychiatric exam: Present: normal affect, normal mood Skin exam: Present: warm, dry Course Vital Signs 04/29/22 04/29/22 14:52 18:12 Temperature 98 F Pulse Rate 97 78 Respiratory 20 18 Rate Blood Pressure 117/82 135/89 O2 Sat by Pulse 96 95 Oximetry EKG Findings - EKG Comments: EKG Findings:: An EKG was obtained and was read by myself. EKG showed a rate of 93, appearing of 123 and QRS duration of 84. QTC was 373. This EKG showed a normal sinus rhythm with no ST segment elevation or depression noted. Medical Decision Making - Medical Decision Making The patient was seen and evaluated in the emergency department. Physical exam, the patient was resting in bed complaining of moderate right-sided chest pain and left sided flank pain. Vital signs on admission were stable however and within normal limits. Laboratory workup was obtained in triage including a d-dimer quantitative level. This d-dimer was elevated prior to the patient arriving back to the room. On my evaluation, the patient had excellent releases bilaterally and was given a breathing treatment for this and was likely consistent with his COPD. The patient had further laboratory workup ordered as well as a CTA of the chest to rule out a PE at this time. The patient did also receive a dose of morphine for pain control. A chest x-ray was obtained and was interpreted by myself as showing no intrathoracic disease. CTA of the chest was also obtained and interpreted by myself. CTA of the chest showed no evidence of PE. There was mild dilatation of the sinuses a Valsalva measuring up to 5.1 cm. It is similar to previous examinations. Laboratory workup was largely within normal limits however COVID- 19 was positive. This COVID-19 positivity could explain the patient's generalized body aches as well as intermittent aches and pains throughout his body. The patient was advised to continue to monitor symptoms at home and he was stable for discharge. The patient had normal vital signs with normal oxygenation. The patient was advised to take breathing treatments at home as he does have COPD and is at risk for worsening symptoms. The patient was also advised to report back to the emergency department if his symptoms became acutely worse and he had worsening shortness of breath or difficulty in breathing. The patient was understanding of this and all his questions were answered. The patient was discharged home in stable condition. - Lab Data Result diagrams: 04/29/22 15:16 04/29/22 15:16 Lab Results 04/29/22 04/29/22 04/29/22 Range/Units 15:16 15:16 15:16 WBC 6.7 (3.8-10.6) k/uL RBC 5.30 (4.30-5.90) m/uL Hgb 16.5 (13.0-17.5) gm/dL Hct 48.0 (39.0-53.0) % MCV 90.6 (80.0-100.0) fL MCH 31.1 (25.0-35.0) pg MCHC 34.3 (31.0-37.0) g/dL RDW 13.2 (11.5-15.5) % Plt Count 174 (150-450) k/uL MPV 10.1 Neutrophils % (Manual) 53 % Lymphocytes % (Manual) 29 % Monocytes % (Manual) 14 % Eosinophils % (Manual) 4 % Neutrophils # (Manual) 3.55 (1.3-7.7) k/uL Lymphocytes # (Manual) 1.94 (1.0-4.8) k/uL Monocytes # (Manual) 0.94 (0-1.0) k/uL Eosinophils # (Manual) 0.27 (0-0.7) k/uL Nucleated RBCs 0 (0-0) /100 WBC Manual Slide Review Performed RBC Morphology Normal PT 9.9 (9.0-12.0) sec INR 0.9 (<1.2) APTT 29.0 (22.0-30.0) sec D-Dimer 1.17 H (<0.60) mg/L FEU Sodium 135 L (137-145) mmol/L Potassium 4.7 (3.5-5.1) mmol/L Chloride 105 (98-107) mmol/L Carbon Dioxide 22 (22-30) mmol/L Anion Gap 8 mmol/L BUN 15 (9-20) mg/dL Creatinine 0.85 (0.66-1.25) mg/dL Est GFR (CKD-EPI)AfAm >90 (>60 ml/min/1.73 sqM) Est GFR (CKD-EPI)NonAf >90 (>60 ml/min/1.73 sqM) Glucose 85 (74-99) mg/dL Calcium 9.2 (8.4-10.2) mg/dL Magnesium 2.0 (1.6-2.3) mg/dL Total Bilirubin 0.3 (0.2-1.3) mg/dL AST 55 (17-59) U/L ALT 53 H (4-49) U/L Alkaline Phosphatase 106 (38-126) U/L Troponin I (0.000-0.034) ng/mL NT-Pro-B Natriuret Pep pg/mL Total Protein 7.6 (6.3-8.2) g/dL Albumin 4.5 (3.5-5.0) g/dL Urine Color Urine Appearance (Clear) Urine pH (5.0-8.0) Ur Specific [place] (1.001-1.035) Urine Protein (Negative) Urine Glucose (UA) (Negative) Urine Ketones (Negative) Urine Blood (Negative) Urine Nitrite (Negative) Urine Bilirubin (Negative) Urine Urobilinogen (<2.0) mg/dL Ur Leukocyte Esterase (Negative) Influenza Type A (PCR) (Not Detectd) Influenza Type B (PCR) (Not Detectd) RSV (PCR) (Not Detectd) SARS-CoV-2 (PCR) (Not Detectd) 04/29/22 04/29/22 04/29/22 Range/Units 15:16 15:16 16:25 WBC (3.8-10.6) k/uL RBC (4.30-5.90) m/uL Hgb (13.0-17.5) gm/dL Hct (39.0-53.0) % MCV (80.0-100.0) fL MCH (25.0-35.0) pg MCHC (31.0-37.0) g/dL RDW (11.5-15.5) % Plt Count (150-450) k/uL MPV Neutrophils % (Manual) % Lymphocytes % (Manual) % Monocytes % (Manual) % Eosinophils % (Manual) % Neutrophils # (Manual) (1.3-7.7) k/uL Lymphocytes # (Manual) (1.0-4.8) k/uL Monocytes # (Manual) (0-1.0) k/uL Eosinophils # (Manual) (0-0.7) k/uL Nucleated RBCs (0-0) /100 WBC Manual Slide Review RBC Morphology PT (9.0-12.0) sec INR (<1.2) APTT (22.0-30.0) sec D-Dimer (<0.60) mg/L FEU Sodium (137-145) mmol/L Potassium (3.5-5.1) mmol/L Chloride (98-107) mmol/L Carbon Dioxide (22-30) mmol/L Anion Gap mmol/L BUN (9-20) mg/dL Creatinine (0.66-1.25) mg/dL Est GFR (CKD-EPI)AfAm (>60 ml/min/1.73 sqM) Est GFR (CKD-EPI)NonAf (>60 ml/min/1.73 sqM) Glucose (74-99) mg/dL Calcium (8.4-10.2) mg/dL Magnesium (1.6-2.3) mg/dL Total Bilirubin (0.2-1.3) mg/dL AST (17-59) U/L ALT (4-49) U/L Alkaline Phosphatase (38-126) U/L Troponin I <0.012 (0.000-0.034) ng/mL NT-Pro-B Natriuret Pep 32 pg/mL Total Protein (6.3-8.2) g/dL Albumin (3.5-5.0) g/dL Urine Color Urine Appearance (Clear) Urine pH (5.0-8.0) Ur Specific [place] (1.001-1.035) Urine Protein (Negative) Urine Glucose (UA) (Negative) Urine Ketones (Negative) Urine Blood (Negative) Urine Nitrite (Negative) Urine Bilirubin (Negative) Urine Urobilinogen (<2.0) mg/dL Ur Leukocyte Esterase (Negative) Influenza Type A (PCR) Not Detected (Not Detectd) Influenza Type B (PCR) Not Detected (Not Detectd) RSV (PCR) Not Detected (Not Detectd) SARS-CoV-2 (PCR) Detected A (Not Detectd) 04/29/22 Range/Units 18:23 WBC (3.8-10.6) k/uL RBC (4.30-5.90) m/uL Hgb (13.0-17.5) gm/dL Hct (39.0-53.0) % MCV (80.0-100.0) fL MCH (25.0-35.0) pg MCHC (31.0-37.0) g/dL RDW (11.5-15.5) % Plt Count (150-450) k/uL MPV Neutrophils % (Manual) % Lymphocytes % (Manual) % Monocytes % (Manual) % Eosinophils % (Manual) % Neutrophils # (Manual) (1.3-7.7) k/uL Lymphocytes # (Manual) (1.0-4.8) k/uL Monocytes # (Manual) (0-1.0) k/uL Eosinophils # (Manual) (0-0.7) k/uL Nucleated RBCs (0-0) /100 WBC Manual Slide Review RBC Morphology PT (9.0-12.0) sec INR (<1.2) APTT (22.0-30.0) sec D-Dimer (<0.60) mg/L FEU Sodium (137-145) mmol/L Potassium (3.5-5.1) mmol/L Chloride (98-107) mmol/L Carbon Dioxide (22-30) mmol/L Anion Gap mmol/L BUN (9-20) mg/dL Creatinine (0.66-1.25) mg/dL Est GFR (CKD-EPI)AfAm (>60 ml/min/1.73 sqM) Est GFR (CKD-EPI)NonAf (>60 ml/min/1.73 sqM) Glucose (74-99) mg/dL Calcium (8.4-10.2) mg/dL Magnesium (1.6-2.3) mg/dL Total Bilirubin (0.2-1.3) mg/dL AST (17-59) U/L ALT (4-49) U/L Alkaline Phosphatase (38-126) U/L Troponin I (0.000-0.034) ng/mL NT-Pro-B Natriuret Pep pg/mL Total Protein (6.3-8.2) g/dL Albumin (3.5-5.0) g/dL Urine Color Light Yellow Urine Appearance Clear (Clear) Urine pH 5.0 (5.0-8.0) Ur Specific [place] >1.050 H (1.001-1.035) Urine Protein Negative (Negative) Urine Glucose (UA) Negative (Negative) Urine Ketones Negative (Negative) Urine Blood Negative (Negative) Urine Nitrite Negative (Negative) Urine Bilirubin Negative (Negative) Urine Urobilinogen <2.0 (<2.0) mg/dL Ur Leukocyte Esterase Negative (Negative) Influenza Type A (PCR) (Not Detectd) Influenza Type B (PCR) (Not Detectd) RSV (PCR) (Not Detectd) SARS-CoV-2 (PCR) (Not Detectd) Disposition Clinical Impression: COVID-19 Disposition: HOME SELF-CARE Condition: Stable Instructions (If sedation given, give patient instructions): COVID-19 (Coronavirus Disease 2019) (ED) Is patient prescribed a controlled substance at d/c from ED?: No Referrals: Tigist Barrientos MD [Primary Care Provider] - 1-2 days Time of Disposition: 19:00
[2022-04-29] MEDS ORDERED: MORPHINE SULFATE 4 MG/ML SYRINGE IVP STA (16:24)
[2022-04-29 16:48] LABS: Eosinophils # (M) 0.27 k/uL (0-0.7); Lymphocytes # (M) 1.94 k/uL (1.0-4.8); Monocytes # (M) 0.94 k/uL (0-1.0); Neutrophils # (M) 3.55 k/uL (1.3-7.7); Neutrophils % (M) 53 %; Nucleated Red Blood Cells 0 /100 WBC (0-0); RBC Morphology Normal; Total Cells Counted 100
--- NOTE | 2022-04-29 18:13 | CT ---
EXAMINATION TYPE: CT angio chest CT DLP: 588.1 mGycm, Automated exposure control for dose reduction was used. DATE OF EXAM: 04/29/2022 5:14 PM COMPARISON: Chest radiograph from same day. Multiple CTs of the chest with most recent on 01/03/2022 CLINICAL INDICATION:Male, 56 years old with history of SOB, r/o PE; SOB and chest pain TECHNIQUE/CONTRAST: CTA scan of the thorax is performed with IV Contrast, patient injected with 85 mL of Isovue 370, pulm onary embolism protocol. MIP images are created and reviewed. FINDINGS: Pulmonary Artery: There is no evidence for a filling defect within the pulmonary vasculature to sugge st acute pulmonary embolism. The pulmonary artery is of normal size. Lungs/Pleura: No evidence of focal consolidation, pleural effusion or pneumothorax. Scattered periphe ral reticulation most pronounced in the right lung base. Streaky atelectasis/scarring present. Parase ptal emphysema changes noted. Airway: Large airways are patent. Heart: Heart is within normal limits for size.. Vasculature: Dilation of the ascending thoracic aorta measuring up to 5.1 cm similar to prior. Mediastinum: No gross evidence of adenopathy. Musculoskeletal: No acute osseous abnormalities Soft Tissues: Unremarkable. Lower neck: No significant findings. Upper Abdomen: Left renal cyst IMPRESSION: 1. No evidence of pulmonary embolism. 2. Mild dilation of the sinuses of Valsalva measuring up to 5.1 cm. This is similar prior. This may b e either congenital or acquired clinical correlate for connective tissue disorders such as Marfan's, Cedric-Danlos syndrome or Takayasu arteritis versus other etiologies should be considered. 3. Mild emphysema changes.
[2022-04-29 18:14] VITALS: BP 135/89; PULSE 78; RESP 18
[2022-04-29 18:52] LABS: Appearance,Urine Clear (Clear); Bilirubin,Urine Negative (Negative); Blood,Urine Negative (Negative); Color,Urine Light Yellow; Glucose,Urine (UA) Negative (Negative); Ketones,Urine Negative (Negative); Leukocyte Esterase,Urine Negative (Negative); Nitrite,Urine Negative (Negative); Protein,Urine Negative (Negative); Urobilinogen,Urine <2.0 mg/dL (<2.0)
[2022-04-29 18:53] LABS: Specific Gravity,Urine >1.050 (1.001-1.035)
== END 2022-04-29 19:15 | disposition home or self-care (01) ==
LOC: EC 14:14
DX: U07.1 COVID-19 (principal); I10 Essential (primary) hypertension; F90.9 Attention-deficit hyperactivity disorder, unspecified type; F31.9 Bipolar disorder, unspecified; F41.9 Anxiety disorder, unspecified; F17.200 Nicotine dependence, unspecified, uncomplicated; Z79.899 Other long term (current) drug therapy; Z91.041 Radiographic dye allergy status; Z88.6 Allergy status to analgesic agent
CPT/HCPCS: 99285; 96374; 96375 ×2; 36415; 93005; 85379; 83880; 80053; 83735; 84484; 85025; 85610; 85730; 81003; 87636; 71046; 71275; J2270; J1200; J1100; Q9967

== ENCOUNTER → 2023-06-03 | Outpatient (CLI) | payer MEDICARE ==
[2023-06-03 10:05] LABS: ALT 20 U/L (4-49); AST 26 U/L (17-59); African American GFR (CKD) >90 (>60 ml/min/1.73 sqM); Albumin 4.3 g/dL (3.5-5.0); Albumin/Globulin Ratio 1.3; Alkaline Phosphatase 81 U/L (38-126); Amylase 87 U/L (30-110); Anion Gap 10 mmol/L; Blood Urea Nitrogen 12 mg/dL (9-20); Calcium 9.2 mg/dL (8.4-10.2); Carbon Dioxide 24 mmol/L (22-30); Chloride 106 mmol/L (98-107); Globulin 3.2 g/dL; Glucose 97 mg/dL (74-99); Lipase 434 U/L (23-300); Non-African American GFR(CKD) >90 (>60 ml/min/1.73 sqM); Potassium 4.3 mmol/L (3.5-5.1); Sodium 140 mmol/L (137-145); Total Bilirubin 0.5 mg/dL (0.2-1.3); Total Protein 7.5 g/dL (6.3-8.2)
[2023-06-03 10:12] LABS: Basophils # (A) 0.1 k/uL (0-0.2); Basophils % (A) 1 %; Eosinophils # (A) 0.2 k/uL (0-0.7); Eosinophils % (A) 2 %; HGB 15.5 gm/dL (13.0-17.5); Lymphocytes # (A) 3.1 k/uL (1.0-4.8); Lymphocytes % (A) 24 %; MCH 30.2 pg (25.0-35.0); MCHC 32.9 g/dL (31.0-37.0); MCV 91.9 fL (80.0-100.0); Mean Platelet Volume 9.3; Monocytes # (A) 0.8 k/uL (0-1.0); Monocytes % (A) 6 %; Neutrophils # (A) 8.6 k/uL (1.3-7.7); Neutrophils % (A) 64 %; Platelet Count 213 k/uL (150-450); RBC 5.12 m/uL (4.30-5.90); RDW 13.3 % (11.5-15.5); WBC 13.4 k/uL (3.8-10.6)
== END | disposition home or self-care (01) ==
LOC: LABWHC1 09:21
PROVIDERS: ATTEND Family Medicine
DX: R10.84 Generalized abdominal pain (principal)
CPT/HCPCS: 36415; 80053; 82150; 83690; 85025

== ENCOUNTER 2023-06-27 07:19 | Day surgery (SDC) | payer MEDICARE ==
[~2023-06-27 07:19] MED LIST changes: -ALBUTEROL NEB (CONC) 2.5 MG/0.5 ML INHALATION ONE; -ATROPINE SULFATE 0.4 MG/ML 1 ML VIAL IM ONE; -LACTATED RINGERS 1,000 ML IV SCH; -LIDOCAINE 2% (PF) 20 MG/ML 5 ML VIAL INHALATION ONE; -LIDOCAINE VISCOUS 300 MG/15 ML CUP MUCOUS MEM ONE
[2023-06-27] MEDS: LACTATED RINGERS 1,000 ML IV SCH (08:25)
[2023-06-27 08:43] VITALS: TEMP 98.4
[2023-06-27] MEDS ORDERED: PROPOFOL 10 MG/ML 20 ML VIAL IV ONE (09:00)
--- NOTE | 2023-06-27 09:18 | P.PCN ---
Date of Procedure: 06/27/23 Procedure(s) Performed: BRIEF HISTORY: Patient is a 57-year-old pleasant white male with history of Crohn's disease status post multiple surgeries including subtotal colectomy with ileostomy in 1994. Lately has been having abdominal discomfort with increased ileostomy output and hence had a CT of abdomen and pelvis done that showed thickening of the distal ileum all the way to the ostomy site. Because of clinical concern for recurrent he scheduled for an ileoscopy today. PREOPERATIVE DIAGNOSIS: Abdominal pain and thickened distal ileum on recent CAT scan of abdomen Procedure performed ileoscopy with biopsies . IV sedation per Anesthesia. PROCEDURE: After informed consent was obtained, the patient, was brought into the endoscopy unit. IV sedation was administered by Anesthesia under continuous monitoring. . The pat the ileostomy site was exposed the major stone had a mild prolapse noted. At this time I was not able to use the pediatric colonoscope as the opening appeared slightly narrowed. I used an upper endoscopy and gently was able to advance the scope at the 60 cm into the distal ileum and the mucosa appeared completely normal. No erosions or ulcerations identified. Random biopsies were done from the distal ileum. The patient tolerated the procedure well. IMPRESSION: Normal appearing distal ileum up to 60 cm from the ileostomy with no evidence of recurrent Crohn's disease Mild prolapse of the ileostomy RECOMMENDATIONS: Findings of this examination were discussed with the patient as well as his family. He was advised to follow with the biopsy results and he'll be seen in the office in 3-4 weeks..
[2023-06-27 09:42] VITALS: BP 118/76; PULSE 75
[2023-06-27 09:43] VITALS: RESP 18
== END 2023-06-27 09:52 | disposition home or self-care (01) ==
LOC: ORWHC2ENDO 07:19
PROVIDERS: ATTEND Internal Medicine Gastroenterology
DX: K94.19 Other complications of enterostomy (principal); K50.90 Crohn's disease, unspecified, without complications; I10 Essential (primary) hypertension; J44.9 Chronic obstructive pulmonary disease, unspecified; F17.200 Nicotine dependence, unspecified, uncomplicated; K21.9 Gastro-esophageal reflux disease without esophagitis; Z79.899 Other long term (current) drug therapy
CPT/HCPCS: 88305; 44382; J2704

== ENCOUNTER → 2023-07-30 | Outpatient (CLI) | payer MEDICARE ==
--- NOTE | 2023-07-30 10:52 | CT ---
Exam: CT Angiography of the Chest. Date: 07/30/2023. Comparison: 04/29/2022. History: Thoracic aortic aneurysm. Technique: CT examination of the chest was performed without and following the intravenous administra tion of 100 mL of Isovue-300. CT dose lowering techniques were used, to include: automated exposure c ontrol, adjustment for patient size, and/or use of iterative reconstruction. FINDINGS: Mediastinum and Alyson: There is no axillary, mediastinal or hilar lymphadenopathy. Pleural and Pericardial spaces: There are no pleural or pericardial effusions. Upper Abdomen: There are a few cysts seen within the kidneys bilaterally. Visualized upper abdomen ot herwise appears unremarkable. Cardiovascular: There is dilation of the ascending thoracic aorta up to approximate 4.8 cm in diamete r. This is not significantly changed since the previous examination. There is calcification of the ao rtic valve and descending thoracic aorta as well as calcification within the aortic arch. There is no evidence of aortic dissection. Pulmonary Artery: There are no filling defects in the pulmonary arteries. Lung Parenchyma and Airways: There is mild upper lobe predominant paraseptal emphysema. The lungs oth erwise appear clear. Bones: No fracture or aggressive osseous lesion. IMPRESSION: 1. Dilation of the ascending thoracic aorta up to 4.9 cm is unchanged. 2. No evidence of aortic dissection. 3. No evidence of pneumonia, pleural or pericardial effusions.
== END | disposition home or self-care (01) ==
LOC: RADCTMAIN 07:46
PROVIDERS: ATTEND Surgery
DX: I77.810 Thoracic aortic ectasia (principal)
CPT/HCPCS: 71275; Q9967

== ENCOUNTER 2023-10-23 17:32 | Emergency (ER) | payer MEDICARE ==
[2023-10-23 18:03] VITALS: TEMP 97.9
--- NOTE | 2023-10-23 18:19 | ED ---
Chest Pain HPI - General Chief Complaint: Chest Pain Stated Complaint: Abd Pain Time Seen by Provider: 10/23/23 17:57 Source: patient Mode of arrival: ambulatory Limitations: no limitations - History of Present Illness Initial Comments: 57-year-old male with past medical history of Crohn's disease who presents emergency department reporting 2 dehydration. States that he is having significant output from his ileostomy. He has had nausea and therefore is not eating or drinking as much as he needs to be. Because of this the patient is having generalized muscle aches and cramping. He denies any fevers. No black or bloody stools. No vomiting. No sick contacts with similar symptoms. No other alleviating, precipitating or modifying factors - Related Data Home Medications Medication Instructions Recorded Confirmed HYDROcodone/APAP 10-325MG [[place] 1 tab PO BID 03/17/14 06/27/23 10-325] ALPRAZolam [Xanax] 1 mg PO HS 05/22/15 06/27/23 diazePAM [Valium] 10 mg PO DAILY PRN 11/21/18 06/27/23 Metoprolol Succinate (ER) [Toprol 100 mg PO DAILY 12/28/21 06/27/23 XL] Dicyclomine [Bentyl] 10 mg PO BID 02/20/23 06/27/23 Budesonide [Entocort EC] 9 mg PO DAILY 06/25/23 06/27/23 Allergies Allergy/AdvReac Type Severity Reaction Status Date / Time Iodinated Contrast Media Allergy "burning Verified 10/23/23 17:40 [Iodinated Contrast Media - on the IV Dye] inside" ketorolac tromethamine Allergy swelling Verified 10/23/23 17:40 [From Toradol] at injection site amlodipine [From Norvasc] AdvReac Decreased Verified 10/23/23 17:40 BP & Passed out Review of Systems ROS Statement: Those systems with pertinent positive or pertinent negative responses have been documented in the HPI. ROS Other: All systems not noted in ROS Statement are negative. Past Medical History Past Medical History: GERD/Reflux, Hypertension Additional Past Medical History / Comment(s): Nephrolithiasis, hematuria, crohn's disease/multiple resections and ileostomy, gastric ulcer, colon polyps, anemia, DDD, chronic back pain, numbness/tingling bilateral legs, sinus problems/seasonal allergies, aortic aneurysm History of Any Multi-Drug Resistant Organisms: None Reported Past Surgical History: Bowel Resection, Cholecystectomy, Hernia Repair Additional Past Surgical History / Comment(s): cystoscopies/L ureteroscopy/lithotripsy/double J catheter insertion and removal, ureteral stent, multiple bowel resections/ileostomy, colonoscopies, incisional hernia repair, epidural injections to back. Past Anesthesia/Blood Transfusion Reactions: No Reported Reaction Additional Past Anesthesia/Blood Transfusion Reaction / Comment(s): Pt received blood in 1979 without reaction. Past Psychological History: ADD/ADHD, Anxiety, Bipolar, Depression Smoking Status: Current every day smoker - Past Family History Father Additional Family Medical History / Comment(s): Father is . He had a brain tumor. Pt unsure if cancerous. General Exam Limitations: no limitations General appearance: alert, in no apparent distress Head exam: Present: atraumatic, normocephalic, normal inspection Eye exam: Present: normal appearance, PERRL, EOMI. Absent: scleral icterus, conjunctival injection, periorbital swelling ENT exam: Present: normal exam, mucous membranes moist Neck exam: Present: normal inspection. Absent: tenderness, meningismus, lymphadenopathy Respiratory exam: Present: normal lung sounds bilaterally. Absent: respiratory distress, wheezes, rales, rhonchi, stridor Cardiovascular Exam: Present: normal rhythm, tachycardia, normal heart sounds. Absent: systolic murmur, diastolic murmur, rubs, gallop, clicks GI/Abdominal exam: Present: soft, normal bowel sounds. Absent: distended, tenderness, guarding, rebound, rigid Extremities exam: Present: normal inspection, full ROM, normal capillary refill. Absent: tenderness, pedal edema, joint swelling, calf tenderness Back exam: Present: normal inspection Neurological exam: Present: alert, oriented X3, CN II-XII intact Psychiatric exam: Present: normal affect, normal mood Skin exam: Present: warm, dry, intact, normal color. Absent: rash Course Vital Signs 10/23/23 10/23/23 17:35 22:02 Temperature 97.9 F Pulse Rate 120 H 92 Respiratory 18 16 Rate Blood Pressure 143/85 132/83 O2 Sat by Pulse 98 96 Oximetry Chest Pain MDM - MDM Was pt. sent in by a medical professional or institution (, PA, LASER SYSTEMS ENGINEER, urgent c are, hospital, or penitentiary...) When possible be specific @ -No Did you speak to anyone other than the patient for history (EMS, parent, family, police, friend...)? What history was obtained from this source @ -No Did you review nursing and triage notes (agree or disagree)? Why? @ -I reviewed and agree with nursing and triage notes Were old charts reviewed (outside hosp., previous admission, EMS record, old EKG, old radiological studies, urgent care reports/EKG's, penitentiary records)? Report findings @ -No old charts were reviewed Differential Diagnosis (chest pain, altered mental status, abdominal pain women, abdominal pain men, vaginal bleeding, weakness, fever, dyspnea, syncope, headache, dizziness, GI bleed, back pain, seizure, CVA, palpatations, mental health, musculoskeletal)? @ -Appendicitis, cholecystitis, diverticulosis, ischemic bowel, pancreatitis, hepatitis, UTI, gastroenteritis, AAA, incarcerated hernia, bowel obstruction, constipation, inflammatory bowel, hepatitis, peptic ulcer disease, splenic infarction, perforated viscus, testicular torsion, this is not meant to be an all-inclusive list EKG interpreted by me (3pts min.). @ -Yes and demonstrates sinus tachycardia with a rate of 108. MA interval 144. QRS 80. QTc of 388. No acute ST segment elevations or depressions X-rays interpreted by me (1pt min.). @ -None done CT interpreted by me (1pt min.). @ -None done U/S interpreted by me (1pt. min.). @ -None done What testing was considered but not performed or refused? (CT, X-rays, U/S, labs)? Why? @ -Imaging of the abdomen was considered however patient has no abdominal pain What meds were considered but not given or refused? Why? @ -None Did you discuss the management of the patient with other professionals (professionals i.e. , PA, LASER SYSTEMS ENGINEER, lab, RT, psych nurse, social service coordinator, invas tech, teacher, enforcement officer, telephonic nurse case manager)? Give summary @ -No Was smoking cessation discussed for >3mins.? @ -No Was critical care preformed (if so, how long)? @ -No Were there social determinants of health that impacted care today? How? (Homelessness, low income, unemployed, alcoholism, drug addiction, transportation, low edu. Level, literacy, decrease access to med. care, assisted, rehab)? @ -No Was there de-escalation of care discussed even if they declined (Discuss DNR or withdrawal of care, Hospice)? DNR status @ -No What co-morbidities impacted this encounter? (DM, HTN, Smoking, COPD, CAD, Cancer, CVA, ARF, Chemo, Hep., AIDS, mental health diagnosis, sleep apnea, morbid obesity)? @ -Crohn's disease Was patient admitted / discharged? Hospital course, mention meds given and route, prescriptions, significant lab abnormalities, going to OR and other pertinent info. @ -Upon arrival patient was seen and evaluated in room 22. Thorough history and physical exam was performed. IV access was established. Laboratory studies are conducted. Patient was given IV fluids, pain and nausea medications. He was reassessed. Results of laboratory studies were discussed with patient. Patient is dressed and ready to leave. States he feels much improved and wants to go home. Patient must follow-up with his primary care doctor for reeval uation return for any new or worsening symptoms. Patient agreeable to plan was discharged in stable condition Undiagnosed new problem with uncertain prognosis? @ -No Drug Therapy requiring intensive monitoring for toxicity (Heparin, Nitro, Insulin, Cardizem)? @ -No Were any procedures done? @ -No Diagnosis/symptom? @ -Acute nausea, acute diarrhea, history of Crohn's Acute, or Chronic, or Acute on Chronic? @ -Acute Uncomplicated (without systemic symptoms) or Complicated (systemic symptoms)? @ -Complicated Side effects of treatment? @ -No Exacerbation, Progression, or Severe Exacerbation? @ -No Poses a threat to life or bodily function? How? (Chest pain, [place], [place], pneumonia, PE, COPD, DKA, ARF, appy, cholecystitis, CVA, Diverticulitis, Homicidal, Suicidal, threat to staff... and all critical care pts) @ -No Disposition Clinical Impression: Abdominal pain Disposition: HOME SELF-CARE Condition: Stable Instructions (If sedation given, give patient instructions): Abdominal Pain (ED) Additional Instructions: Increase your fluid intake. Have your kidney function rechecked in 1 week. Return for any new or worsening symptoms Is patient prescribed a controlled substance at d/c from ED?: No Referrals: Tigist Barrientos MD [Primary Care Provider] - 1-2 days Time of Disposition: 22:08
[2023-10-23] MEDS: SODIUM CHLORIDE 0.9% 2,000 ML IV STA (18:35)
[2023-10-23] MEDS: MORPHINE SULFATE 4 MG/ML SYRINGE IVP STA (18:36)
[2023-10-23] MEDS: ONDANSETRON 4 MG/2 ML VIAL IVP STA (18:36)
[2023-10-23 19:09] LABS: Basophils # (A) 0.2 k/uL (0-0.2); Basophils % (A) 1 %; Eosinophils # (A) 0.2 k/uL (0-0.7); Eosinophils % (A) 1 %; HCT 51.4 % (39.0-53.0); Lymphocytes % (A) 21 %; MCH 30.2 pg (25.0-35.0); MCV 91.3 fL (80.0-100.0); Mean Platelet Volume 9.3; Monocytes # (A) 0.9 k/uL (0-1.0); Monocytes % (A) 6 %; Neutrophils # (A) 9.5 k/uL (1.3-7.7); Neutrophils % (A) 66 %; Platelet Count 273 k/uL (150-450); RBC 5.62 m/uL (4.30-5.90); RDW 12.4 % (11.5-15.5); WBC 14.3 k/uL (3.8-10.6)
[2023-10-23 19:39] LABS: ALT 24 U/L (4-49); AST 31 U/L (17-59); African American GFR (CKD) 58 (>60 ml/min/1.73 sqM); Albumin 5.2 g/dL (3.5-5.0); Alkaline Phosphatase 96 U/L (38-126); Anion Gap 12 mmol/L; Blood Urea Nitrogen 32 mg/dL (9-20); Carbon Dioxide 17 mmol/L (22-30); Chloride 105 mmol/L (98-107); Glucose 114 mg/dL (74-99); Lipase 144 U/L (23-300); Non-African American GFR(CKD) 50 (>60 ml/min/1.73 sqM); Potassium 3.7 mmol/L (3.5-5.1); Sodium 134 mmol/L (137-145); Total Bilirubin 0.4 mg/dL (0.2-1.3); Total Protein 8.5 g/dL (6.3-8.2)
[2023-10-23 20:13] LABS: Appearance,Urine Clear (Clear); Bilirubin,Urine Negative (Negative); Blood,Urine Negative (Negative); Color,Urine Light Yellow; Glucose,Urine (UA) Negative (Negative); Ketones,Urine Negative (Negative); Leukocyte Esterase,Urine Negative (Negative); Nitrite,Urine Negative (Negative); PH, Urine 5.5 (5.0-8.0); Protein,Urine Negative (Negative); Specific Gravity,Urine 1.022 (1.001-1.035); Urobilinogen,Urine <2.0 mg/dL (<2.0)
[2023-10-23] MEDS: DICYCLOMINE 10 MG CAP PO STA (20:32)
[2023-10-23] MEDS: HYDROmorphone 1 MG/ML 1 ML SYRINGE IVP STA (20:33)
[2023-10-23] MEDS: SODIUM CHLORIDE 0.9% 1,000 ML IV ONE (20:36)
[2023-10-23 22:36] VITALS: BP 132/83; PULSE 92; RESP 16
== END 2023-10-23 22:15 | disposition home or self-care (01) ==
LOC: EC 17:32
DX: R10.9 Unspecified abdominal pain (principal); R11.2 Nausea with vomiting, unspecified; R19.7 Diarrhea, unspecified; R00.0 Tachycardia, unspecified; Z87.19 Personal history of other diseases of the digestive system; Z91.041 Radiographic dye allergy status; Z88.8 Allergy status to other drugs, medicaments and biological substances; Z88.1 Allergy status to other antibiotic agents
CPT/HCPCS: 36415; 80053; 83605; 83690; 85025; 81003; 99285; 96374; 96375 ×2; 96361; J2270; J2405; J1170

== ENCOUNTER 2023-12-03 12:12 | Emergency (ER) | payer MEDICARE ==
[2023-12-03 12:20] VITALS: TEMP 97.5
[2023-12-03] MEDS: SODIUM CHLORIDE 0.9% 2,000 ML IV STA (12:58)
[2023-12-03 13:13] LABS: Basophils # (A) 0.3 k/uL (0-0.2); Basophils % (A) 2 %; Eosinophils # (A) 0.2 k/uL (0-0.7); Eosinophils % (A) 1 %; HGB 16.9 gm/dL (13.0-17.5); Lymphocytes # (A) 2.9 k/uL (1.0-4.8); Lymphocytes % (A) 16 %; MCH 29.8 pg (25.0-35.0); MCHC 33.1 g/dL (31.0-37.0); Mean Platelet Volume 9.4; Monocytes # (A) 1.8 k/uL (0-1.0); Monocytes % (A) 10 %; Neutrophils % (A) 70 %; Platelet Count 266 k/uL (150-450); RBC 5.67 m/uL (4.30-5.90); RDW 13.1 % (11.5-15.5); WBC 18.6 k/uL (3.8-10.6)
--- NOTE | 2023-12-03 13:14 | ED ---
General Adult HPI - General Chief complaint: Chest Pain Stated complaint: Abd pain Time Seen by Provider: 12/03/23 12:31 Source: patient, RN notes reviewed Mode of arrival: ambulatory Limitations: no limitations - History of Present Illness Initial comments: 58-year-old male presents emergency department chief complaint of abdominal pain. Patient states has been having creasing abdominal pain, cramping type symptoms patient states he feels in the upper abdomen, lower ribs and down into the lower abdomen. Patient has a history of Crohn's has ileostomy. Patient states last time he had pain like this was related to acute pancreatitis. Patient states he feels dehydrated as his muscles are cramping. He denies any upper chest pain no reports of fever. - Related Data Home Medications Medication Instructions Recorded Confirmed HYDROcodone/APAP 10-325MG [[place] 1 tab PO BID PRN 03/17/14 12/03/23 10-325] ALPRAZolam [Xanax] 1 mg PO HS PRN 05/22/15 12/03/23 diazePAM [Valium] 10 mg PO DAILY PRN 11/21/18 12/03/23 Metoprolol Succinate (ER) [Toprol 100 mg PO HS 12/28/21 12/03/23 XL] Albuterol Sulfate [Ventolin HFA] 1 - 2 puff INHALATION Q6H PRN 12/03/23 12/03/23 Ondansetron Odt [Zofran Odt] 4 mg PO TID 12/03/23 12/03/23 Previous Rx's Medication Instructions Recorded Famotidine [Pepcid] 20 mg PO BID #28 tablet 12/03/23 Allergies Allergy/AdvReac Type Severity Reaction Status Date / Time Iodinated Contrast Media Allergy "burning Verified 12/03/23 13:20 [Iodinated Contrast Media - on the IV Dye] inside" ketorolac tromethamine Allergy swelling Verified 12/03/23 13:20 [From Toradol] at injection site Review of Systems ROS Statement: Those systems with pertinent positive or pertinent negative responses have been documented in the HPI. ROS Other: All systems not noted in ROS Statement are negative. Past Medical History Past Medical History: GERD/Reflux, Hypertension Additional Past Medical History / Comment(s): Nephrolithiasis, hematuria, crohn's disease/multiple resections and ileostomy, gastric ulcer, colon polyps, anemia, DDD, chronic back pain, numbness/tingling bilateral legs, sinus problems/seasonal allergies, aortic aneurysm History of Any Multi-Drug Resistant Organisms: None Reported Past Surgical History: Bowel Resection, Cholecystectomy, Hernia Repair Additional Past Surgical History / Comment(s): cystoscopies/L ureteroscopy/lithotripsy/double J catheter insertion and removal, ureteral stent, multiple bowel resections/ileostomy, colonoscopies, incisional hernia repair, epidural injections to back. Past Anesthesia/Blood Transfusion Reactions: No Reported Reaction Additional Past Anesthesia/Blood Transfusion Reaction / Comment(s): Pt received blood in 1979 without reaction. Past Psychological History: ADD/ADHD, Anxiety, Bipolar, Depression Smoking Status: Current every day smoker - Past Family History Father Additional Family Medical History / Comment(s): Father is . He had a brain tumor. Pt unsure if cancerous. General Exam Limitations: no limitations General appearance: alert, in no apparent distress Head exam: Present: atraumatic, normocephalic, normal inspection Eye exam: Present: normal appearance, PERRL, EOMI. Absent: scleral icterus, conjunctival injection, periorbital swelling ENT exam: Present: normal exam, mucous membranes moist Neck exam: Present: normal inspection, full ROM. Absent: tenderness, m eningismus, lymphadenopathy Respiratory exam: Present: normal lung sounds bilaterally. Absent: respiratory distress, wheezes, rales, rhonchi, stridor Cardiovascular Exam: Present: normal rhythm, tachycardia, normal heart sounds. Absent: systolic murmur, diastolic murmur, rubs, gallop, clicks GI/Abdominal exam: Present: soft, tenderness, normal bowel sounds. Absent: distended, guarding, rebound, rigid Back exam: Absent: CVA tenderness (R), CVA tenderness (L) Neurological exam: Present: alert Course Vital Signs 12/03/23 12/03/23 12:17 14:28 Temperature 97.5 F L Pulse Rate 127 H 82 Respiratory 20 18 Rate Blood Pressure 131/78 O2 Sat by Pulse 97 97 Oximetry EKG Findings - EKG Comments: EKG Findings:: EKG performed at 12: 25 sinus tachycardia rate of 110 NE 148 QRS 77 QT/QTc 308/373 - EKG Results: EKG: interpreted by ROBERT Medical Decision Making - Medical Decision Making Was pt. sent in by a medical professional or institution (Dr., PA, CORING MACHINE OPERATOR, urgent care, hospital, or longterm...) When possible be specific @ -No Did you speak to anyone other than the patient for history (EMS, parent, family, police, friend...)? What history was obtained from this source @ -No Did you review nursing and triage notes (agree or disagree)? Why? @ -I reviewed and agree with nursing and triage notes Were old charts reviewed (outside hosp., previous admission, EMS record, old EKG, old radiological studies, urgent care reports/EKG's, longterm records)? Report findings @ -No old charts were reviewed Differential Diagnosis (chest pain, altered mental status, abdominal pain women, abdominal pain men, vaginal bleeding, weakness, fever, dyspnea, syncope, headache, dizziness, GI bleed, back pain, seizure, CVA, palpatations, mental health, musculoskeletal)? @ -Differential Abdominal Pain Men: Appendicitis, cholecystitis, diverticulosis, ischemic bowel, pancreatitis, hepatitis, UTI, gastroenteritis, AAA, incarcerated hernia, bowel obstruction, constipation, inflammatory bowel, hepatitis, peptic ulcer disease, splenic infarction, perforated viscus, testicular torsion, this is not meant to be an all-inclusive list EKG interpreted by me (3pts min.). @ -As above X-rays interpreted by me (1pt min.). @ -None done CT interpreted by me (1pt min.). @ -CT of the pelvis showing postsurgical changes, nonobstructive bowel gas pattern, no perforation. U/S interpreted by me (1pt. min.). @ -None done What testing was considered but not performed or refused? (CT, X-rays, U/S, labs)? Why? @ -None What meds were considered but not given or refused? Why? @ -None Did you discuss the management of the patient with other professionals (professionals i.e. ALEXIS Floers, CORING MACHINE OPERATOR, lab, RT, psych nurse, protective services social worker, solid state tester, teacher, chief creative officer, showcase maker)? Give summary @ -No Was smoking cessation discussed for >3mins.? @ -No Was critical care preformed (if so, how long)? @ -No Were there social determinants of health that impacted care today? How? (Homelessness, low income, unemployed, alcoholism, drug addiction, transportation, low edu. Level, literacy, decrease access to med. care, fdc, rehab)? @ -No Was there de-escalation of care discussed even if they declined (Discuss DNR or withdrawal of care, Hospice)? DNR status @ -No What co-morbidities impacted this encounter? (DM, HTN, Smoking, COPD, CAD, Cancer, CVA, ARF, Chemo, Hep., AIDS, mental health diagnosis, sleep apnea, morbid obesity)? @ -[Crohn's Was patient admitted / discharged? Hospital course, mention meds given and route, prescriptions, significant lab abnormalities, going to OR and other pertinent info. @ -Discharge patient presented for abdominal pain, gastric pain laboratory findings show mild acute kidney injury, dehydration, metabolic acidosis from dehydration patient was given 3 L of fluids this feels greatly improved patient discharged in stable condition return parameters discussed Undiagnosed new problem with uncertain prognosis? @ -No Drug Therapy requiring intensive monitoring for toxicity (Heparin, Nitro, Insulin, Cardizem)? @ -No Were any procedures done? @ -No Diagnosis/symptom? @ -Dehydration, acute kidney injury, abdominal pain Acute, or Chronic, or Acute on Chronic? @ -Acute Uncomplicated (without systemic symptoms) or Complicated (systemic symptoms)? @ -Complicated Side effects of treatment? @ -No Exacerbation, Progression, or Severe Exacerbation? @ -No Poses a threat to life or bodily function? How? (Chest pain, [place], [place], pneumonia, PE, COPD, DKA, ARF, appy, cholecystitis, CVA, Diverticulitis, Homicidal, Suicidal, threat to staff... and all critical care pts) @ -No - Lab Data Result diagrams: 12/03/23 12:47 12/03/23 12:47 Lab Results 12/03/23 12/03/23 12/03/23 Range/Units 12:47 12:47 12:47 WBC 18.6 H (3.8-10.6) k/uL RBC 5.67 (4.30-5.90) m/uL Hgb 16.9 (13.0-17.5) gm/dL Hct 51.0 (39.0-53.0) % MCV 90.0 (80.0-100.0) fL MCH 29.8 (25.0-35.0) pg MCHC 33.1 (31.0-37.0) g/dL RDW 13.1 (11.5-15.5) % Plt Count 266 (150-450) k/uL MPV 9.4 Neutrophils % 70 % Lymphocytes % 16 % Monocytes % 10 % Eosinophils % 1 % Basophils % 2 % Neutrophils # 13.0 H (1.3-7.7) k/uL Lymphocytes # 2.9 (1.0-4.8) k/uL Monocytes # 1.8 H (0-1.0) k/uL Eosinophils # 0.2 (0-0.7) k/uL Basophils # 0.3 H (0-0.2) k/uL Sodium 136 L (137-145) mmol/L Potassium 4.3 (3.5-5.1) mmol/L Chloride 106 (98-107) mmol/L Carbon Dioxide 17 L (22-30) mmol/L Anion Gap 13 mmol/L BUN 24 H (9-20) mg/dL Creatinine 1.38 H (0.66-1.25) mg/dL Est GFR (CKD-EPI)AfAm 66 (>60 ml/min/1.73 sqM) Est GFR (CKD-EPI)NonAf 57 (>60 ml/min/1.73 sqM) Glucose 124 H (74-99) mg/dL Plasma Lactic Acid Alex 1.6 (0.7-2.0) mmol/L Calcium 10.3 H (8.4-10.2) mg/dL Total Bilirubin 0.8 (0.2-1.3) mg/dL AST 31 (17-59) U/L ALT 24 (4-49) U/L Alkaline Phosphatase 69 (38-126) U/L Troponin I (0.000-0.034) ng/mL Total Protein 8.3 H (6.3-8.2) g/dL Albumin 4.9 (3.5-5.0) g/dL Amylase 66 (30-110) U/L Lipase 121 (23-300) U/L 12/03/23 Range/Units 12:47 WBC (3.8-10.6) k/uL RBC (4.30-5.90) m/uL Hgb (13.0-17.5) gm/dL Hct (39.0-53.0) % MCV (80.0-100.0) fL MCH (25.0-35.0) pg MCHC (31.0-37.0) g/dL RDW (11.5-15.5) % Plt Count (150-450) k/uL MPV Neutrophils % % Lymphocytes % % Monocytes % % Eosinophils % % Basophils % % Neutrophils # (1.3-7.7) k/uL Lymphocytes # (1.0-4.8) k/uL Monocytes # (0-1.0) k/uL Eosinophils # (0-0.7) k/uL Basophils # (0-0.2) k/uL Sodium (137-145) mmol/L Potassium (3.5-5.1) mmol/L Chloride (98-107) mmol/L Carbon Dioxide (22-30) mmol/L Anion Gap mmol/L BUN (9-20) mg/dL Creatinine (0.66-1.25) mg/dL Est GFR (CKD-EPI)AfAm (>60 ml/min/1.73 sqM) Est GFR (CKD-EPI)NonAf (>60 ml/min/1.73 sqM) Glucose (74-99) mg/dL Plasma Lactic Acid Alex (0.7-2.0) mmol/L Calcium (8.4-10.2) mg/dL Total Bilirubin (0.2-1.3) mg/dL AST (17-59) U/L ALT (4-49) U/L Alkaline Phosphatase (38-126) U/L Troponin I <0.012 (0.000-0.034) ng/mL Total Protein (6.3-8.2) g/dL Albumin (3.5-5.0) g/dL Amylase (30-110) U/L Lipase (23-300) U/L Disposition Clinical Impression: Abdominal pain, FAUSTINO (acute kidney injury), Dehydration Disposition: HOME SELF-CARE Condition: Stable Instructions (If sedation given, give patient instructions): Abdominal Pain (ED) Additional Instructions: Please return to the Emergency Department if symptoms worsen or any other concerns. Prescriptions: Famotidine [Pepcid] 20 mg PO BID #28 tablet Is patient prescribed a controlled substance at d/c from ED?: No Referrals: Tigist Barrientos MD [Primary Care Provider] - 1-2 days Time of Disposition: 16:04
[2023-12-03 13:26] LABS: ALT 24 U/L (4-49); AST 31 U/L (17-59); African American GFR (CKD) 66 (>60 ml/min/1.73 sqM); Albumin 4.9 g/dL (3.5-5.0); Alkaline Phosphatase 69 U/L (38-126); Amylase 66 U/L (30-110); Anion Gap 13 mmol/L; Blood Urea Nitrogen 24 mg/dL (9-20); Calcium 10.3 mg/dL (8.4-10.2); Carbon Dioxide 17 mmol/L (22-30); Chloride 106 mmol/L (98-107); Glucose 124 mg/dL (74-99); Lipase 121 U/L (23-300); Non-African American GFR(CKD) 57 (>60 ml/min/1.73 sqM); Potassium 4.3 mmol/L (3.5-5.1); Sodium 136 mmol/L (137-145); Total Bilirubin 0.8 mg/dL (0.2-1.3); Total Protein 8.3 g/dL (6.3-8.2)
[2023-12-03] MEDS: MORPHINE SULFATE 4 MG/ML SYRINGE IVP STA ×3 (14:26→16:31)
--- NOTE | 2023-12-03 14:56 | CT ---
EXAMINATION TYPE: CT abdomen pelvis wo con DATE OF EXAM: 12/03/2023 COMPARISON: 02/20/2023 HISTORY: 58-year-old male Bilateral flank pain CT DLP: 584.9 mGycm. Automated exposure control for dose reduction was used. TECHNIQUE: Contiguous axial scanning of the abdomen and pelvis without IV contrast. Coronal and sagit karl reconstructions performed. FINDINGS: Heart normal size without pericardial effusion. Redemonstrated atelectasis or scarring at the base. N o pleural effusion. Noncontrasted appearance of the liver, adrenal glands, spleen, and pancreas within normal limits. Numerous bilateral renal cortical cysts not well characterized due to lack of contrast but with overa ll similar configuration compared to 02/12/2023. Cysts measuring up to 2.2 cm. No nephrolithiasis or h ydronephrosis is seen. No dilated small bowel, free fluid, or free air is seen. There is a small Spigelian hernia along the right side of abdomen measuring 2.9 cm wide, unchanged from 02/20/2023 containing a nonobstructed smal l bowel loop. There is a left lower quadrant sigmoid colostomy. Vianey's pouch noted in the pelvis. No pericolonic inflammatory change. Fusiform ectasia infrarenal abdominal aorta up to 2.8 cm. Mild circumferential bladder wall thickening. Prostate gland mildly enlarged at 4.5 cm wide. No abnor mal fluid collection in the pelvis or pelvic lymphadenopathy. IMPRESSION: 1. No nephrolithiasis or hydronephrosis. Numerous bilateral renal cortical cysts measuring up to 2.2 cm remain unchanged. 2. Left lower quadrant sigmoid colostomy with Ventura's pouch. Status post cholecystectomy. 3. Mild circumferential bladder wall thickening may be chronic for the patient. Prostate gland mildly enlarged at 4.5 cm wide. Correlate to exclude cystitis.
[2023-12-03] MEDS: SODIUM CHLORIDE 0.9% 1,000 ML IV ONE (16:30)
[2023-12-03] MEDS: LORazepam 2 MG/ML INJ IV STA (16:31)
[2023-12-03] MEDS: FAMOTIDINE 20 MG/2 ML VIAL IV STA (16:32)
[2023-12-03 17:16] VITALS: BP 158/65; PULSE 72; RESP 16
== END 2023-12-03 17:16 | disposition home or self-care (01) ==
LOC: EC 12:12
DX: N17.9 Acute kidney failure, unspecified (principal); E86.0 Dehydration; F17.200 Nicotine dependence, unspecified, uncomplicated; Z90.49 Acquired absence of other specified parts of digestive tract; Z88.8 Allergy status to other drugs, medicaments and biological substances
CPT/HCPCS: 36415; 93005; 80053; 82150; 83605; 83690; 84484; 85025; 74176; 99285; 96374; 96375 ×2; 96376 ×2; 96361 ×2; J2060; J2270; J3490

== ENCOUNTER 2024-05-24 10:40 | Inpatient (IN) | payer MEDICARE ==
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
[2024-05-24 13:08] LABS: ALT 27 U/L (4-49); AST 28 U/L (17-59); African American GFR (CKD) >90 (>60 ml/min/1.73 sqM); Albumin 4.5 g/dL (3.5-5.0); Alkaline Phosphatase 81 U/L (38-126); Anion Gap 9 mmol/L; Blood Urea Nitrogen 20 mg/dL (9-20); Calcium 9.8 mg/dL (8.4-10.2); Carbon Dioxide 25 mmol/L (22-30); Chloride 106 mmol/L (98-107); Glucose 105 mg/dL (74-99); Magnesium 2.3 mg/dL (1.6-2.3); Non-African American GFR(CKD) >90 (>60 ml/min/1.73 sqM); Potassium 4.7 mmol/L (3.5-5.1); Sodium 140 mmol/L (137-145); Total Bilirubin 0.2 mg/dL (0.2-1.3); Total Protein 7.5 g/dL (6.3-8.2)
[2024-05-24 13:15] LABS: Basophils # (A) 0.1 k/uL (0-0.2); Basophils % (A) 0 %; Eosinophils # (A) 0.1 k/uL (0-0.7); Eosinophils % (A) 0 %; HCT 43.6 % (39.0-53.0); HGB 14.9 gm/dL (13.0-17.5); Lymphocytes # (A) 2.3 k/uL (1.0-4.8); Lymphocytes % (A) 8 %; MCH 31.1 pg (25.0-35.0); MCHC 34.1 g/dL (31.0-37.0); MCV 91.1 fL (80.0-100.0); Mean Platelet Volume 8.5; Monocytes # (A) 1.3 k/uL (0-1.0); Monocytes % (A) 5 %; Neutrophils # (A) 23.5 k/uL (1.3-7.7); Neutrophils % (A) 85 %; Platelet Count 256 k/uL (150-450); RBC 4.79 m/uL (4.30-5.90); WBC 27.5 k/uL (3.8-10.6)
[2024-05-24 13:22] LABS: INR 0.9 (<1.2); Partial Thromboplastin Time 24.3 sec (22.0-30.0)
--- NOTE | 2024-05-24 13:30 | XR ---
EXAMINATION TYPE: XR chest 2V DATE OF EXAM: 05/24/2024 1:27 PM COMPARISON: Chest radiographs from 04/29/2022, CT chest 07/30/2023 TECHNIQUE: XR chest 2V Frontal and lateral views of the chest. CLINICAL INDICATION:Male, 58 years old with history of Chest Pain; FINDINGS: Lungs/Pleura: There is flattening of the diaphragm with increased lucency of the lungs. No evidence o f pneumothorax, pleural effusion or focal consolidation. Pulmonary vascularity: Unremarkable. Heart/mediastinum: Cardiomediastinal silhouette is unremarkable. Musculoskeletal: No acute osseous pathology. IMPRESSION: 1. No acute cardiopulmonary disease process. 2. COPD changes. [facility], , 05/24/2024 1:28 PM
[2024-05-24] MEDS: FAMOTIDINE 20 MG/2 ML VIAL IV STA (13:59)
[2024-05-24] MEDS: diphenhydrAMINE 50 MG/ML 1 ML VIAL IVP STA (14:02)
[2024-05-24] MEDS: methylPREDNISolone SOD SUCCI 125 MG/2 ML VIAL IV STA (14:03)
[2024-05-24] MEDS: SODIUM CHLORIDE 0.9% 1,000 ML IV STA ×2 (14:06→18:24)
[2024-05-24] MEDS: SODIUM CHLORIDE 0.9% 500 ML 500 ML IV STA (14:08)
[2024-05-24] MEDS: MORPHINE SULFATE 4 MG/ML SYRINGE IVP STA (14:14)
[2024-05-24] MEDS: ONDANSETRON 4 MG/2 ML VIAL IVP STA (14:14)
[2024-05-24 15:01] LABS: Appearance,Urine Clear (Clear); Bilirubin,Urine Negative (Negative); Blood,Urine Negative (Negative); Color,Urine Light Yellow; Glucose,Urine (UA) Negative (Negative); Ketones,Urine Negative (Negative); Leukocyte Esterase,Urine Negative (Negative); Nitrite,Urine Negative (Negative); Protein,Urine Negative (Negative); Specific Gravity,Urine 1.029 (1.001-1.035); Urobilinogen,Urine <2.0 mg/dL (<2.0)
--- NOTE | 2024-05-24 15:03 | CT ---
EXAMINATION TYPE: CT angio chest DATE OF EXAM: 05/24/2024 COMPARISON: 07/30/2023 CLINICAL INDICATION: Male, 58 years old with history of cp; PHH, CP. TECHNIQUE: CTA scan of the thorax is performed with IV Contrast, patient injected with 100 ml mL of Isovue 300, pulmonary embolism protocol. MIP images are created and reviewed. 3-D post processing was performed . CT DLP: Combined DLP of 1441.[address] CTDI: mGy Automated exposure control for dose reduction was used. FINDINGS: LUNGS: There are mild emphysematous changes with an upper lobe predominance. The lungs are grossly cl ear, there is no concerning parenchymal mass or nodule identified. There is no pleural effusion or pneumothorax seen. The tracheobronchial tree is patent. There is an enlarging right hilar lymph node which is now 18.8 mm and was previously approximately 15 mm.. There is no mediastinal or axillary adenopathy. There is stable 4.9 cm aneurysmal dilatation of the ascending thoracic aorta. The aortic root is enla rged measuring 4.5 cm. There are no filling defects within the pulmonary arterial circulation suggest pulmonary embolus. Limited scanning through the upper abdomen reveals no focal abnormality. There are no focal osseous l esions. IMPRESSION: 1. STABLE 4.9 CM DILATATION OF THE ASCENDING THORACIC AORTA. 2. STABLE 4.5 CM DILATATION OF THE AORTIC ROOT. 3. ENLARGING RIGHT HILAR LYMPH NODE DESCRIBED ABOVE. FURTHER WORKUP IS WARRANTED. 4. NO PULMONARY EMBOLUS [facility], , 05/24/2024 3:01 PM
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
[2024-05-24] MEDS ORDERED: VANCOMYCIN IV PER PHARMACY 1 EACH MISC MISCELLANE PRN (15:36)
[2024-05-24] MEDS ORDERED: ACETAMINOPHEN TAB 325 MG TAB PO PRN (15:36)
[2024-05-24] MEDS ORDERED: ONDANSETRON 4 MG/2 ML VIAL IVP PRN (15:36)
[2024-05-24] MEDS ORDERED: NALOXONE 0.4 MG/ML 1 ML VIAL IV PRN (15:36)
[2024-05-24] MEDS: AMPICILLIN-SULBACTAM 3 GM in SODIUM CHLORIDE 0.9% 100 ML IVPB STA (17:00)
[2024-05-24] MEDS: SODIUM CHLORIDE 0.9% 1,000 ML IV SCH (17:13)
[2024-05-24] MEDS: HYDROmorphone 1 MG/ML 1 ML SYRINGE IVP PRN (17:57)
[2024-05-24] MEDS: VANCOMYCIN 1,500 MG in SODIUM CHLORIDE 0.9% 500 ML 500 ML IVPB STA (18:03)
[2024-05-24] MEDS: NICOTINE 21MG/24HR PATCH TRANSDERM SCH (19:06)
[2024-05-24] MEDS ORDERED: ALBUTEROL NEBULIZED 2.5 MG/3 ML INHALATION PRN (20:58)
[2024-05-24] MEDS: METOPROLOL SUCCINATE (ER) 100 MG TAB.ER.24H PO SCH (22:29)
[2024-05-24] MEDS: ALPRAZolam 1 MG TAB PO PRN (22:29)
[2024-05-24] MEDS: AMPICILLIN-SULBACTAM 3 GM in SODIUM CHLORIDE 0.9% 100 ML IVPB SCH (23:59)
[2024-05-25 02:50] LABS: Basophils % (A) 0 %; Eosinophils % (A) 0 %; HCT 41.4 % (39.0-53.0); HGB 13.7 gm/dL (13.0-17.5); Lymphocytes # (A) 1.2 k/uL (1.0-4.8); Lymphocytes % (A) 5 %; MCH 30.5 pg (25.0-35.0); MCV 92.5 fL (80.0-100.0); Mean Platelet Volume 8.9; Monocytes # (A) 0.7 k/uL (0-1.0); Monocytes % (A) 3 %; Neutrophils # (A) 22.1 k/uL (1.3-7.7); Neutrophils % (A) 91 %; Platelet Count 228 k/uL (150-450); RBC 4.48 m/uL (4.30-5.90); RDW 13.1 % (11.5-15.5); WBC 24.3 k/uL (3.8-10.6)
[2024-05-25 03:11] LABS: ALT 24 U/L (4-49); AST 24 U/L (17-59); African American GFR (CKD) >90 (>60 ml/min/1.73 sqM); Albumin/Globulin Ratio 1.4; Alkaline Phosphatase 91 U/L (38-126); Anion Gap 8 mmol/L; Blood Urea Nitrogen 16 mg/dL (9-20); Carbon Dioxide 22 mmol/L (22-30); Chloride 108 mmol/L (98-107); Globulin 2.8 g/dL; Glucose 112 mg/dL (74-99); Magnesium 2.2 mg/dL (1.6-2.3); Non-African American GFR(CKD) >90 (>60 ml/min/1.73 sqM); Phosphorus 3.2 mg/dL (2.5-4.5); Potassium 4.6 mmol/L (3.5-5.1); Sodium 138 mmol/L (137-145); Total Bilirubin 0.2 mg/dL (0.2-1.3); Total Protein 6.8 g/dL (6.3-8.2)
[2024-05-25] MEDS: VANCOMYCIN 1,500 MG in SODIUM CHLORIDE 0.9% 500 ML 500 ML IVPB SCH (06:46)
[2024-05-25] MEDS: diazePAM 5 MG TAB PO STA (08:31)
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
[2024-05-25] MEDS: LOSARTAN 25 MG TAB PO SCH (09:35)
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
[2024-05-25] MEDS ORDERED: VANCOMYCIN 1,500 MG in SODIUM CHLORIDE 0.9% 500 ML 500 ML IVPB SCH (14:00)
--- NOTE | 2024-05-25 15:15 | P.PN ---
Subjective Progress Note Date: 05/25/24 Principal diagnosis: Reason for follow-up is leukocytosis Patient is a 58-year-old male with a past medical history significant for reflux hypertension nephrolithiasis patient did have a history of Crohn's disease did have multiple resection and ileostomy presenting to the hospital for evaluation of chest pain did have elevated white count probably this consultation did have a CT abdominal pelvis did not show any acute abnormality lung bases were clear. On today's evaluation that is 05/25/2024, Patient is afebrile this morning patient did have improvement his chest pain denies any significant cough some nausea but no vomiting no abdominal pain did have output in his ileostomy. Patient white count is down to 24.3, creatinine 0.73 blood cultures pending CRP and Pro-Jeronimo is currently pending Objective - Vital Signs Vital signs: Vital Signs Temp 97.4 F L 05/25/24 08:23 Pulse 78 05/25/24 08:23 Resp 18 05/25/24 08:23 BP 155/89 05/25/24 08:23 Pulse Ox 93 L 05/25/24 08:23 FiO2 Intake & Output 05/24/24 05/25/24 05/25/24 18:59 06:59 18:59 Weight 90.718 kg - Exam GENERAL DESCRIPTION: Middle-age male lying in bed in no distress RESPIRATORY SYSTEM: Unlabored breathing , decreased breath sounds at bases HEART: S1 S2 regular rate and rhythm , ABDOMEN: Soft , no tenderness EXTREMITIES: No edema feet - Labs CBC & Chem 7: 05/25/24 02:13 05/25/24 02:13 Labs: Abnormal Lab Results - Last 24 Hours (Table) 05/25/24 05/25/24 Range/Units 02:13 02:13 WBC 24.3 H (3.8-10.6) k/uL Neutrophils # 22.1 H (1.3-7.7) k/uL Chloride 108 H (98-107) mmol/L Glucose 112 H (74-99) mg/dL Assessment and Plan (1) Leukocytosis Current Visit: Yes Status: Acute Code(s): D72.829 - ELEVATED WHITE BLOOD CELL COUNT, UNSPECIFIED SNOMED Code(s): 989783628 Plan: 1patient with elevated white count in this patient presented to hospital with chest pain and apparently did have admission to the [facility] with similar symptoms and is not very clear if the patient has received any steroids at that facility for possible COPD exacerbation as it could be related to the steroids as the patient currently not running any fever does not look toxic and did have extensive workup including a negative chest x-ray negative CT abdominal pelvis UA has been negative no evidence of any cellulitis or joint swelling 2currently waiting for blood culture as well as inflammatory markers to finalize 3patient to continue with empiric Unasyn however discontinue vancomycin Dictation was produced using [employer] dictation software. please excuse any grammatical, word or spelling errors. Time with Patient: Less than 30
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
--- NOTE | 2024-05-25 17:42 | CA ---
Transthoracic Echo Report Name: Jay Clancy Age: 58 Gender: M : 1965 Exam Date: 05/25/2024 13:58 Exam Location: [place] [facility] Ht (in): 71 Wt (lb): 200 Ordering Physician: Eugenia Godoy Attending/Referring Phys: [id number], Jayne Mechanical Technician Arminda Smith RDCS Procedure CPT: Indications: LV function, CP, HTN Cardiac Hx: Technical Quality: Fair Contrast 1: Total Dose (mL): Contrast 2: Total Dose (mL): MEASUREMENTS (Male / Female) Normal Values 2D ECHO LV Diastolic Diameter PLAX 4.4 cm 4.2 - 5.9 / 3.9 - 5.3 cm LV Systolic Diameter PLAX 2.9 cm IVS Diastolic Thickness 0.9 cm 0.6 - 1.0 / 0.6 - 0.9 cm LVPW Diastolic Thickness 1.1 cm 0.6 - 1.0 / 0.6 - 0.9 cm LV Relative Wall Thickness 0.5 LVOT Diameter 2.3 cm Aortic Root Diameter 4.2 cm LV Diastolic Volume MOD BP 146.3 cm??? 67 - 155 / 56 - 104 cm??? LV Systolic Volume MOD BP 60.5 cm??? 22 - 58 / 19 - 49 cm??? LV Ejection Fraction MOD BP 58.6 % >= 55 % LV Cardiac Index MOD BP 3513.2 cm???/min???m??? LV Diastolic Volume MOD 4C 148.6 cm??? LV Systolic Volume MOD 4C 67.4 cm??? LV Ejection Fraction MOD 4C 54.7 % LV Cardiac Index MOD 4C 3326.4 cm???/min???m??? LV Diastolic Length 4C 9.7 cm LV Systolic Length 4C 8.1 cm LV Diastolic Volume MOD 2C 135.4 cm??? LV Systolic Volume MOD 2C 50.8 cm??? LV Ejection Fraction MOD 2C 62.5 % LV Cardiac Index MOD 2C 3466.8 cm???/min???m??? LV Diastolic Length 2C 9.1 cm LV Systolic Length 2C 7.5 cm LA Volume 55.9 cm??? 18 - 58 / 22 - 52 cm??? LA Volume Index 26.0 cm???/m??? 16 - 28 cm???/m??? Ascending Aorta Diameter 3.7 cm DOPPLER AV Peak Velocity 163.3 cm/s AV Peak Gradient 10.7 mmHg AV Mean Velocity 104.5 cm/s AV Mean Gradient 5.3 mmHg AV Velocity Time Integral 32.1 cm LVOT Peak Velocity 120.9 cm/s LVOT Peak Gradient 5.8 mmHg LVOT Velocity Time Integral 26.3 cm LVOT Stroke Volume 113.2 cm??? LVOT Stroke Volume Index 53.7 ml/m??? LVOT Cardiac Index 4637.8 cm???/min???m??? AV Area Cont Eq vti 3.5 cm??? AV Area Cont Eq pk 3.2 cm??? MV Area PHT 5.0 cm??? Mitral E Point Velocity 108.0 cm/s Mitral A Point Velocity 98.8 cm/s Mitral E to A Ratio 1.1 MV Deceleration Time 152.4 ms PV Peak Velocity 126.7 cm/s PV Peak Gradient 6.4 mmHg FINDINGS Left Ventricle Left ventricular ejection fraction is estimated at 55-60 %. Mildly increased left ventricular systolic volume. Left ventricular wall thickness normal. No obvious regional wall motion abnormalities. Right Ventricle Mild right ventricular dilatation with normal function. Unable to estimate the right ventricular systolic pressure. Right Atrium Right atrial dilatation. Left Atrium Normal left atrial size. Mitral Valve Structurally normal mitral valve. No evidence for mitral valve prolapse. No mitral stenosis. Trace mitral regurgitation. Aortic Valve Trileaflet aortic valve. No aortic stenosis. Mild aortic regurgitation. Tricuspid Valve Structurally normal tricuspid valve. No tricuspid stenosis. Trace tricuspid regurgitation. Pulmonic Valve Structurally normal pulmonic valve. No pulmonic stenosis. No pulmonic regurgitation. Pericardium No pericardial effusion. Aorta Mildly dilated aortic annulus 4.2cm. Moderate aortic dilatation at the level of the sinuses of valsalva (root) 4.7cm. CONCLUSIONS Normal biventricular systolic function Dilated aorta at the level of sinus of Valsalva up to 4.7 cm Mild aortic regurgitation Previewed by: Dr. Alfonso Castaneda MD (Electronically Signed) Final Date: 25 May 2024 17:41
[2024-05-26] MEDS ORDERED: VANCOMYCIN TROUGH DUE 1 EACH MISC MISCELLANE ONE (05:00)
[2024-05-26 10:28] VITALS: BP 135/67; PULSE 70; RESP 17; TEMP 97.4
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
--- NOTE | 2024-05-26 15:03 | P.PN ---
Subjective Progress Note Date: 05/26/24 Principal diagnosis: Reason for follow-up is leukocytosis Patient is a 58-year-old male with a past medical history significant for reflux hypertension nephrolithiasis patient did have a history of Crohn's disease did have multiple resection and ileostomy presenting to the hospital for evaluation of chest pain did have elevated white count probably this consultation did have a CT abdominal pelvis did not show any acute abnormality lung bases were clear. On today's evaluation that is 05/26/2024,the patient denies any fever or any chills, patient is breathing comfortably on room air, the patient still complaining of some chest pain but no shortness of breath and no significant cough, patient denies abdominal pain, no nausea vomiting or diarrhea. CBC pending from this morning the patient did have a normal procalcitonin 0.02 Friday 0.40, blood culture has been negative so far Objective - Vital Signs Vital signs: Vital Signs Temp 97.4 F L 05/26/24 08:00 Pulse 70 05/26/24 08:00 Resp 17 05/26/24 08:00 BP 135/67 05/26/24 08:00 Pulse Ox 96 05/26/24 08:00 FiO2 Intake & Output 05/25/24 05/26/24 05/26/24 18:59 06:59 18:59 Intake Total 118 Balance 118 Intake: Oral 118 Other: # Voids 5 3 - Exam GENERAL DESCRIPTION: Middle-age male lying in bed in no distress RESPIRATORY SYSTEM: Unlabored breathing , decreased breath sounds at bases HEART: S1 S2 regular rate and rhythm , ABDOMEN: Soft , no tenderness EXTREMITIES: No edema feet - Labs CBC & Chem 7: 05/25/24 02:13 05/25/24 02:13 Labs: Microbiology - Last 24 Hours (Table) 05/24/24 16:41 Blood Culture - Preliminary Blood Assessment and Plan (1) Leukocytosis Status: Acute Code(s): D72.829 - ELEVATED WHITE BLOOD CELL COUNT, UNSPECIFIED SNOMED Code(s): 690569936 Plan: 1patient with elevated white count in this patient presented to hospital with chest pain and apparently did have admission to the [facility] with similar symptoms and is not very clear if the patient has received any steroids at that facility for possible COPD exacerbation as it could be related to the steroids as the patient currently not running any fever does not look toxic and did have extensive workup including a negative chest x-ray negative CT abdominal pelvis UA has been negative no evidence of any cellulitis or joint swelling 2patient blood culture has been negative did have normal inflammatory markers we will make infection etiology to be less likely especially patient with no fever patient has been insisting on going home May consider short course of oral Augmentin discussed with admitting physician Dictation was produced using [employer] dictation software. please excuse any grammatical, word or spelling errors. Time with Patient: Less than 30
== END 2024-05-26 13:35 | disposition home or self-care (01) | DRG 300 ==
LOC: EC 10:40 → 6NMEDSUR 15:36 → OBSVTOIN 05-25 07:05 → 6NMEDSUR 05-25 07:24
PROVIDERS: ADMIT Hospitalist; ATTEND Hospitalist
DX: I71.21 Aneurysm of the ascending aorta, without rupture (principal); K62.5 Hemorrhage of anus and rectum; F31.9 Bipolar disorder, unspecified; F19.11 Other psychoactive substance abuse, in remission; J44.9 Chronic obstructive pulmonary disease, unspecified; Z93.2 Ileostomy status; I10 Essential (primary) hypertension; D72.829 Elevated white blood cell count, unspecified; R07.89 Other chest pain; F17.210 Nicotine dependence, cigarettes, uncomplicated; F41.9 Anxiety disorder, unspecified; M79.89 Other specified soft tissue disorders; Z91.51 Personal history of suicidal behavior; Z87.19 Personal history of other diseases of the digestive system; Z79.899 Other long term (current) drug therapy; Z86.0100 Personal history of colon polyps, unspecified; Z87.11 Personal history of peptic ulcer disease
CPT/HCPCS: 36415; 71046; 71275; 74177; 80053; 81003; 83605; 83735; 84100; 84145; 84484; 85025; 85610; 85730; 86140; 87040; 87636; 87651; 93005; 93306; 96361; 96365; 96366; 96367; 96368; 96375; 96376; 99285

== ENCOUNTER 2024-07-29 12:30 | Emergency (ER) | payer MEDICARE ==
[2024-07-29 12:42] VITALS: BP 102/70; PULSE 107; RESP 18; TEMP 98
--- NOTE | 2024-07-29 12:43 | ED ---
General Adult HPI - General Chief complaint: Chest Pain Stated complaint: Chest pain Time Seen by Provider: 07/29/24 12:43 Source: patient, RN notes reviewed Mode of arrival: ambulatory Limitations: no limitations - History of Present Illness Initial comments: This is a 58-year-old male with a history of known aortic aneurysm, complicated Crohn's disease with colostomy placement who is presenting to the emergency department for muscle mass. He states that over the past hours he has been experiencing bodyaches and is concerned that he is dehydrated. States that he has had a large amount of watery output from his colostomy. He endorses chest pain/tightness. No emesis. Fevers, chills,, urinary complaints. Patient had recent stress testing completed with his weigher production 3 weeks ago where he was cleared for 6-month follow-up. He denies cough, congestion, rhinorrhea. Denies recent antibiotic use or recent travel. - Related Data Home Medications Medication Instructions Recorded Confirmed HYDROcodone/APAP 10-325MG [[place] 1 tab PO BID PRN 03/17/14 05/24/24 10-325] ALPRAZolam [Xanax] 1 mg PO HS PRN 05/22/15 05/24/24 diazePAM [Valium] 10 mg PO DAILY PRN 11/21/18 05/24/24 Metoprolol Succinate (ER) [Toprol 100 mg PO HS 12/28/21 05/24/24 XL] Albuterol Sulfate [Ventolin HFA] 1 - 2 puff INHALATION RT-Q6H PRN 12/03/23 05/24/24 Ondansetron Odt [Zofran ODT] 4 mg PO TID PRN 12/03/23 05/24/24 Previous Rx's Medication Instructions Recorded Amoxic-Pot Clav 875-125Mg 1 tab PO Q12HR 2 Days #4 tab 05/26/24 [Augmentin 875-125] Losartan [Cozaar] 25 mg PO DAILY 30 Days #30 tab 05/26/24 Allergies Allergy/AdvReac Type Severity Reaction Status Date / Time Iodinated Contrast Media Allergy "burning Verified 07/29/24 14:19 [Iodinated Contrast Media - on the IV Dye] inside" ketorolac tromethamine Allergy swelling Verified 07/29/24 14:19 [From Toradol] at injection site Review of Systems ROS Statement: Those systems with pertinent positive or pertinent negative responses have been documented in the HPI. ROS Other: All systems not noted in ROS Statement are negative. Past Medical History Past Medical History: GERD/Reflux, Hypertension Additional Past Medical History / Comment(s): Nephrolithiasis, hematuria, crohn's disease/multiple resections and ileostomy, gastric ulcer, colon polyps, anemia, DDD, chronic back pain, numbness/tingling bilateral legs, sinus problems/seasonal allergies, aortic aneurysm History of Any Multi-Drug Resistant Organisms: None Reported Past Surgical History: Bowel Resection, Cholecystectomy, Hernia Repair Additional Past Surgical History / Comment(s): cystoscopies/L ureteroscopy/lithotripsy/double J catheter insertion and removal, ureteral stent, multiple bowel resections/ileostomy, colonoscopies, incisional hernia repair, epidural injections to back. Past Anesthesia/Blood Transfusion Reactions: No Reported Reaction Additional Past Anesthesia/Blood Transfusion Reaction / Comment(s): Pt received blood in 1979 without reaction. Past Psychological History: ADD/ADHD, Anxiety, Bipolar, Depression Smoking Status: Current every day smoker Past Alcohol Use History: None Reported Past Drug Use History: Marijuana - Past Family History Father Additional Family Medical History / Comment(s): Father is . He had a brain tumor. Pt unsure if cancerous. General Exam Limitations: no limitations ENT exam: Present: normal exam, mucous membranes dry Respiratory exam: Present: normal lung sounds bilaterally. Absent: respiratory distress, wheezes, rales, rhonchi, stridor Cardiovascular Exam: Present: regular rate, normal rhythm, normal heart sounds. Absent: systolic murmur, diastolic murmur, rubs, gallop, clicks GI/Abdominal exam: Present: soft, normal bowel sounds, other (left sided ostomy, no pain or surrounding erythema). Absent: distended, tenderness, guarding, rebound, rigid Extremities exam: Present: normal inspection, full ROM, normal capillary refill. Absent: tenderness, pedal edema, joint swelling, calf tenderness Back exam: Present: normal inspection Skin exam: Present: warm, dry, intact, normal color. Absent: rash Course Vital Signs 07/29/24 12:39 Temperature 98 F Pulse Rate 107 H Respiratory 18 Rate Blood Pressure 102/70 O2 Sat by Pulse 98 Oximetry Medical Decision Making - Medical Decision Making Was pt. sent in by a medical professional or institution (Dr., PA, GALVANIZER ZINC, urgent care, hospital, or custodial...) When possible be specific @ -No Did you speak to anyone other than the patient for history (EMS, parent, family, police, friend...)? What history was obtained from this source @ -No Did you review nursing and triage notes (agree or disagree)? Why? @ -I reviewed and agree with nursing and triage notes Were old charts reviewed (outside hosp., previous admission, EMS record, old EKG, old radiological studies, urgent care reports/EKG's, custodial records)? Report findings @ -Reviewed emergency department visit note from 05/24/2024 where he presented for chest pain CTA of the chest completed on 05/24/2024 reveals a stable 4.9 cm dilation of the ascending thoracic aorta and a stable 4.5 cm dilation of the aortic root Differential Diagnosis (chest pain, altered mental status, abdominal pain women, abdominal pain men, vaginal bleeding, weakness, fever, dyspnea, syncope, headache, dizziness, GI bleed, back pain, seizure, CVA, palpatations, mental health, musculoskeletal)? @ -Differential Chest Pain: Stable Angina, Unstable Angina, STEMI, NSTEMI Aortic Dissection, Pneumothorax, Musculoskeletal, Esophageal Spasm GERD, Cholecystitis, Pancreatitis, Zoster, this is not meant to be an all-inclusive list. EKG interpreted by me (3pts min.). @ -Completed at 1248 sinus rhythm with a ventricular rate of 88, KS interval 182, QRS 79, QTc 375. X-rays interpreted by me (1pt min.). @ -Chest x-ray completed with no acute cardiopulmonary process, COPD changes CT interpreted by me (1pt min.). @ -None done U/S interpreted by me (1pt. min.). @ -None done What testing was considered but not performed or refused? (CT, X-rays, U/S, labs)? Why? @ -None What meds were considered but not given or refused? Why? @ -None Did you discuss the management of the patient with other professionals (justin harrell i.ALEXIS bryan Dr., GALVANIZER ZINC, lab, RT, psych nurse, social media community manager, extrusion press supervisor, teacher, special police officer, home health care case manager)? Give summary @ -No Was smoking cessation discussed for >3mins.? @ -No Was critical care preformed (if so, how long)? @ -No Were there social determinants of health that impacted care today? How? (Homelessness, low income, unemployed, alcoholism, drug addiction, transportation, low edu. Level, literacy, decrease access to med. care, fci, rehab)? @ -No Was there de-escalation of care discussed even if they declined (Discuss DNR or withdrawal of care, Hospice)? DNR status @ -No What co-morbidities impacted this encounter? (DM, HTN, Smoking, COPD, CAD, Cancer, CVA, ARF, Chemo, Hep., AIDS, mental health diagnosis, sleep apnea, morbid obesity)? @ -None Was patient admitted / discharged? Hospital course, mention meds given and route, prescriptions, significant lab abnormalities, going to OR and other pertinent info. @ - discharged. 58-year-old presenting to the emergency department for complaint of 'body cramps'. He recently reported chest pain stating that he has total body cramps and radiating to his chest. States that he feels like he was very dehydrated. he is showing clinical signs of dehydration with dry mucous membranes and will be provided with 1L fluid bolus and will undergo cardiac evaluation. Labs remarkable leukocytosis of 13.4 and left shift neutrophils of 9.0. Coagulations, CMP, troponin within normal. lipase mildly elevated at 442. Chest x-ray is unremarkable. Patient states that he chronically has a mildly elevated white count but this is normal for him. Reevaluation after fluid ministration patient states that he is feeling improvement however still experiencing renal lower extremity cramping. Patient was offered admission for cardiac evaluation however he is requesting. He recently had a normal stress test completed 3 weeks ago. He is feeling well and is requesting to be discharged and will follow up with his primary care provider. Return parameters are discussed. discussed with Dr. Plama Undiagnosed new problem with uncertain prognosis? @ -No Drug Therapy requiring intensive monitoring for toxicity (Heparin, Nitro, Insulin, Cardizem)? @ -No Were any procedures done? @ -No Diagnosis/symptom? @ -body cramps Acute, or Chronic, or Acute on Chronic? @ -acute Uncomplicated (without systemic symptoms) or Complicated (systemic symptoms)? @ -uncomplicated Side effects of treatment? @ -No Exacerbation, Progression, or Severe Exacerbation? @ -No Poses a threat to life or bodily function? How? (Chest pain, USA, UT, pneumonia, PE, COPD, DKA, ARF, appy, cholecystitis, CVA, Diverticulitis, Homicidal, Suicidal, threat to staff... and all critical care pts) @ -No - Lab Data Result diagrams: 07/29/24 13:53 07/29/24 13:16 Lab Results 07/29/24 07/29/24 07/29/24 Range/Units 13:16 13:16 13:16 WBC (3.8-10.6) k/uL RBC (4.30-5.90) m/uL Hgb (13.0-17.5) gm/dL Hct (39.0-53.0) % MCV (80.0-100.0) fL MCH (25.0-35.0) pg MCHC (31.0-37.0) g/dL RDW (11.5-15.5) % Plt Count (150-450) k/uL MPV Neutrophils % % Lymphocytes % % Monocytes % % Eosinophils % % Basophils % % Neutrophils # (1.3-7.7) k/uL Lymphocytes # (1.0-4.8) k/uL Monocytes # (0-1.0) k/uL Eosinophils # (0-0.7) k/uL Basophils # (0-0.2) k/uL PT 10.5 (10.0-12.5) sec INR 0.9 (<1.2) APTT 23.1 (22.0-30.0) sec Sodium 137 (137-145) mmol/L Potassium 4.8 (3.5-5.1) mmol/L Chloride 103 (98-107) mmol/L Carbon Dioxide 20 L (22-30) mmol/L Anion Gap 14 mmol/L BUN 22 H (9-20) mg/dL Creatinine 1.14 (0.66-1.25) mg/dL Est GFR (CKD-EPI)AfAm 83 (>60 ml/min/1.73 sqM) Est GFR (CKD-EPI)NonAf 72 (>60 ml/min/1.73 sqM) Glucose 91 (74-99) mg/dL Calcium 10.3 H (8.4-10.2) mg/dL Magnesium 2.1 (1.6-2.3) mg/dL Total Bilirubin 0.9 (0.2-1.3) mg/dL AST 33 (17-59) U/L ALT 27 (4-49) U/L Alkaline Phosphatase 85 (38-126) U/L Troponin I <0.012 (0.000-0.034) ng/mL Total Protein 9.0 H (6.3-8.2) g/dL Albumin 5.3 H (3.5-5.0) g/dL Lipase 442 H (23-300) U/L 07/29/24 Range/Units 13:53 WBC 13.4 H (3.8-10.6) k/uL RBC 5.26 (4.30-5.90) m/uL Hgb 15.5 (13.0-17.5) gm/dL Hct 48.6 (39.0-53.0) % MCV 92.4 (80.0-100.0) fL MCH 29.5 (25.0-35.0) pg MCHC 32.0 (31.0-37.0) g/dL RDW 13.3 (11.5-15.5) % Plt Count 274 (150-450) k/uL MPV 8.1 Neutrophils % 67 % Lymphocytes % 22 % Monocytes % 6 % Eosinophils % 1 % Basophils % 1 % Neutrophils # 9.0 H (1.3-7.7) k/uL Lymphocytes # 2.9 (1.0-4.8) k/uL Monocytes # 0.7 (0-1.0) k/uL Eosinophils # 0.2 (0-0.7) k/uL Basophils # 0.1 (0-0.2) k/uL PT (10.0-12.5) sec INR (<1.2) APTT (22.0-30.0) sec Sodium (137-145) mmol/L Potassium (3.5-5.1) mmol/L Chloride (98-107) mmol/L Carbon Dioxide (22-30) mmol/L Anion Gap mmol/L BUN (9-20) mg/dL Creatinine (0.66-1.25) mg/dL Est GFR (CKD-EPI)AfAm (>60 ml/min/1.73 sqM) Est GFR (CKD-EPI)NonAf (>60 ml/min/1.73 sqM) Glucose (74-99) mg/dL Calcium (8.4-10.2) mg/dL Magnesium (1.6-2.3) mg/dL Total Bilirubin (0.2-1.3) mg/dL AST (17-59) U/L ALT (4-49) U/L Alkaline Phosphatase (38-126) U/L Troponin I (0.000-0.034) ng/mL Total Protein (6.3-8.2) g/dL Albumin (3.5-5.0) g/dL Lipase (23-300) U/L Disposition Clinical Impression: Muscle cramping Disposition: HOME SELF-CARE Condition: Good Instructions (If sedation given, give patient instructions): Muscle Cramp (ED) Additional Instructions: Please return to the Emergency Department if symptoms worsen or any other concerns. Is patient prescribed a controlled substance at d/c from ED?: No Referrals: Tigist Barrientos MD [Primary Care Provider] - 1-2 days Time of Disposition: 14:19
[2024-07-29] MEDS: SODIUM CHLORIDE 0.9% 1,000 ML IV STA (13:23)
[2024-07-29 13:37] LABS: INR 0.9 (<1.2); Partial Thromboplastin Time 23.1 sec (22.0-30.0); Prothrombin Time 10.5 sec (10.0-12.5)
[2024-07-29 13:40] LABS: Potassium 4.8 mmol/L (3.5-5.1)
--- NOTE | 2024-07-29 13:51 | XR ---
EXAMINATION TYPE: XR chest 2V DATE OF EXAM: 07/29/2024 1:46 PM COMPARISON: Chest radiographs from 05/24/2024, CT chest 05/24/2024. TECHNIQUE: XR chest 2V Frontal and lateral views of the chest. CLINICAL INDICATION:Male, 58 years old with history of Chest Pain; FINDINGS: Lungs/Pleura: There is flattening of the diaphragm with increased lucency of the lungs. No evidence o f pneumothorax, pleural effusion or focal consolidation. Pulmonary vascularity: Unremarkable. Heart/mediastinum: Cardiomediastinal silhouette is unremarkable. Musculoskeletal: No acute osseous pathology. Mild multilevel degenerative disc disease. IMPRESSION: 1. No acute cardiopulmonary disease process. 2. COPD changes. [facility], , 07/29/2024 1:49 PM
[2024-07-29 13:59] LABS: Basophils # (A) 0.1 k/uL (0-0.2); Basophils % (A) 1 %; Eosinophils # (A) 0.2 k/uL (0-0.7); Eosinophils % (A) 1 %; HCT 48.6 % (39.0-53.0); HGB 15.5 gm/dL (13.0-17.5); Lymphocytes # (A) 2.9 k/uL (1.0-4.8); Lymphocytes % (A) 22 %; MCH 29.5 pg (25.0-35.0); MCV 92.4 fL (80.0-100.0); Mean Platelet Volume 8.1; Monocytes # (A) 0.7 k/uL (0-1.0); Monocytes % (A) 6 %; Neutrophils % (A) 67 %; Platelet Count 274 k/uL (150-450); RBC 5.26 m/uL (4.30-5.90); RDW 13.3 % (11.5-15.5); WBC 13.4 k/uL (3.8-10.6)
[2024-07-29 14:07] LABS: ALT 27 U/L (4-49); AST 33 U/L (17-59); African American GFR (CKD) 83 (>60 ml/min/1.73 sqM); Albumin 5.3 g/dL (3.5-5.0); Alkaline Phosphatase 85 U/L (38-126); Anion Gap 14 mmol/L; Blood Urea Nitrogen 22 mg/dL (9-20); Calcium 10.3 mg/dL (8.4-10.2); Carbon Dioxide 20 mmol/L (22-30); Chloride 103 mmol/L (98-107); Glucose 91 mg/dL (74-99); Lipase 442 U/L (23-300); Magnesium 2.1 mg/dL (1.6-2.3); Non-African American GFR(CKD) 72 (>60 ml/min/1.73 sqM); Sodium 137 mmol/L (137-145); Total Bilirubin 0.9 mg/dL (0.2-1.3)
== END 2024-07-29 14:33 | disposition home or self-care (01) ==
LOC: EC 12:30
DX: R25.2 Cramp and spasm (principal); R74.8 Abnormal levels of other serum enzymes; D72.829 Elevated white blood cell count, unspecified; F17.200 Nicotine dependence, unspecified, uncomplicated; Z93.3 Colostomy status
CPT/HCPCS: 36415; 71046; 80053; 83690; 83735; 84484; 85025; 85610; 85730; 93005; 96360; 99285

== ENCOUNTER 2024-08-12 13:00 | Observation (INO) | payer MEDICARE ==
--- NOTE | 2024-08-12 13:36 | ED ---
General Adult HPI - General Chief complaint: Abdominal Pain Stated complaint: abd pain Time Seen by Provider: 08/12/24 13:07 Source: patient, RN notes reviewed Mode of arrival: ambulatory Limitations: no limitations - History of Present Illness Initial comments: Patient is a 58-year-old male presenting the emergency department with concerns with abdominal discomfort. Onset of symptoms was today. Patient does have chronic abdominal problems associated with Crohn's. Patient also had 1 episode of pancreatitis previously, unclear why. Patient denies alcohol use. Patient has ileostomy. Patient has had decreased output today. Discomfort is more u pper abdomen. Patient has chronic nausea, unchanged. Patient took medication at home. No fever. - Related Data Home Medications Medication Instructions Recorded Confirmed HYDROcodone/APAP 10-325MG [[place] 1 tab PO BID PRN 03/17/14 05/24/24 10-325] ALPRAZolam [Xanax] 1 mg PO HS PRN 05/22/15 05/24/24 diazePAM [Valium] 10 mg PO DAILY PRN 11/21/18 05/24/24 Metoprolol Succinate (ER) [Toprol 100 mg PO HS 12/28/21 05/24/24 XL] Albuterol Sulfate [Ventolin HFA] 1 - 2 puff INHALATION RT-Q6H PRN 12/03/23 05/24/24 Ondansetron Odt [Zofran ODT] 4 mg PO TID PRN 12/03/23 05/24/24 Previous Rx's Medication Instructions Recorded Amoxic-Pot Clav 875-125Mg 1 tab PO Q12HR 2 Days #4 tab 05/26/24 [Augmentin 875-125] Losartan [Cozaar] 25 mg PO DAILY 30 Days #30 tab 05/26/24 Allergies Allergy/AdvReac Type Severity Reaction Status Date / Time Iodinated Contrast Media Allergy "burning Verified 08/12/24 13:12 [Iodinated Contrast Media - on the IV Dye] inside" ketorolac tromethamine Allergy swelling Verified 08/12/24 13:12 [From Toradol] at injection site Review of Systems ROS Statement: Those systems with pertinent positive or pertinent negative responses have been documented in the HPI. ROS Other: All systems not noted in ROS Statement are negative. Constitutional: Denies: fever Eyes: Denies: eye pain ENT: Denies: ear pain Respiratory: Denies: cough, dyspnea Cardiovascular: Denies: chest pain Gastrointestinal: Reports: as per HPI, abdominal pain, nausea. Denies: vomiting, diarrhea Musculoskeletal: Denies: back pain Past Medical History Past Medical History: GERD/Reflux, Hypertension Additional Past Medical History / Comment(s): Nephrolithiasis, hematuria, crohn's disease/multiple resections and ileostomy, gastric ulcer, colon polyps, anemia, DDD, chronic back pain, numbness/tingling bilateral legs, sinus problems/seasonal allergies, aortic aneurysm History of Any Multi-Drug Resistant Organisms: None Reported Past Surgical History: Bowel Resection, Cholecystectomy, Hernia Repair Additional Past Surgical History / Comment(s): cystoscopies/L urete roscopy/lithotripsy/double J catheter insertion and removal, ureteral stent, multiple bowel resections/ileostomy, colonoscopies, incisional hernia repair, epidural injections to back. Past Anesthesia/Blood Transfusion Reactions: No Reported Reaction Additional Past Anesthesia/Blood Transfusion Reaction / Comment(s): Pt received blood in 1979 without reaction. Past Psychological History: ADD/ADHD, Anxiety, Bipolar, Depression Smoking Status: Current every day smoker Past Alcohol Use History: None Reported Past Drug Use History: Marijuana - Past Family History Father Additional Family Medical History / Comment(s): Father is . He had a brain tumor. Pt unsure if cancerous. General Exam Limitations: no limitations General appearance: alert, in no apparent distress Head exam: Present: normocephalic Eye exam: Present: normal appearance Neck exam: Present: normal inspection Respiratory exam: Present: normal lung sounds bilaterally Cardiovascular Exam: Present: regular rate, normal rhythm Expanded Peripheral pulses: 2+: Posterior Tibialis (R), Posterior Tibialis (L) GI/Abdominal exam: Present: soft, tenderness (Mild to moderate tenderness diffusely, more so upper abdomen), normal bowel sounds. Absent: distended, guarding, rebound, rigid, pulsatile mass Extremities exam: Present: normal inspection Neurological exam: Present: alert Psychiatric exam: Present: normal affect, normal mood Skin exam: Present: normal color Course Vital Signs 08/12/24 08/12/24 13:10 13:52 Temperature 97.7 F Pulse Rate 75 77 Respiratory 20 16 Rate Blood Pressure 119/75 114/74 O2 Sat by Pulse 95 97 Oximetry Medical Decision Making - Medical Decision Making Was pt. sent in by a medical professional or institution (ALEXIS Flores, SET UP MACHINIST, urgent care, hospital, or residential...) When possible be specific @ -No Did you speak to anyone other than the patient for history (EMS, parent, family, police, friend...)? What history was obtained from this source @ -No Did you review nursing and triage notes (agree or disagree)? Why? @ -I reviewed and agree with nursing and triage notes Were old charts reviewed (outside hosp., previous admission, EMS record, old EKG, old radiological studies, urgent care reports/EKG's, residential records)? Report findings @ -No old charts were reviewed Differential Diagnosis (chest pain, altered mental status, abdominal pain women, abdominal pain men, vaginal bleeding, weakness, fever, dyspnea, syncope, headache, dizziness, GI bleed, back pain, seizure, CVA, palpatations, mental health, musculoskeletal)? @ -Differential Abdominal Pain Men: Appendicitis, cholecystitis, diverticulosis, ischemic bowel, pancreatitis, hepatitis, UTI, gastroenteritis, AAA, incarcerated hernia, bowel obstruction, constipation, inflammatory bowel, hepatitis, peptic ulcer disease, splenic infarction, perforated viscus, testicular torsion, this is not meant to be an all-inclusive list EKG interpreted by me (3pts min.). @ -As above X-rays interpreted by me (1pt min.). @ -None done CT interpreted by me (1pt min.). @ -CT abdomen pelvis does show some bowel dilation concerning for ileus versus partial small bowel obstruction U/S interpreted by me (1pt. min.). @ -None done What testing was considered but not performed or refused? (CT, X-rays, U/S, labs)? Why? @ -None What meds were considered but not given or refused? Why? @ -None Did you discuss the management of the patient with other professionals (professionals i.e. ALEXIS Flores, SET UP MACHINIST, lab, RT, psych nurse, nephrology social worker, network engineer administrator, teacher, surface to air weapons officer, case resource manager)? Give summary @ -Case was discussed with Dr. Foster who will admit covering About Was smoking cessation discussed for >3mins.? @ -No Was critical care preformed (if so, how long)? @ -No Were there social determinants of health that impacted care today? How? (Homelessness, low income, unemployed, alcoholism, drug addiction, transportation, low edu. Level, literacy, decrease access to med. care, skilled nursing, rehab)? @ -No Was there de-escalation of care discussed even if they declined (Discuss DNR or withdrawal of care, Hospice)? DNR status @ -No What co-morbidities impacted this encounter? (DM, HTN, Smoking, COPD, CAD, Cancer, CVA, ARF, Chemo, Hep., AIDS, mental health diagnosis, sleep apnea, morbid obesity)? @ -History of Crohn's, History of pancreatitis Was patient admitted / discharged? Hospital course, mention meds given and route, prescriptions, significant lab abnormalities, going to OR and other pertinent info. @ -Patient presents with abdominal discomfort. CT scan concerning for ileus versus partial small bowel obstruction. There is mild bump of pancreatic enzymes. Patient still has discomfort. Patient will be admitted. Admission orders written. Patient updated. Consults placed. Undiagnosed new problem with uncertain prognosis? @ -No Drug Therapy requiring intensive monitoring for toxicity (Heparin, Nitro, Insulin, Cardizem)? @ -No Were any procedures done? @ -No Diagnosis/symptom? @ -Abdominal pain Acute, or Chronic, or Acute on Chronic? @ -Acute Uncomplicated (without systemic symptoms) or Complicated (systemic symptoms)? @ -Default Side effects of treatment? @ -No Exacerbation, Progression, or Severe Exacerbation? @ -No Poses a threat to life or bodily function? How? (Chest pain, [place], [place], pneumonia, PE, COPD, DKA, ARF, appy, cholecystitis, CVA, Diverticulitis, Homicidal, Suicidal, threat to staff... and all critical care pts) @ -No - Lab Data Result diagrams: 08/12/24 13:45 08/12/24 13:45 Lab Results 08/12/24 08/12/24 08/12/24 Range/Units 13:45 13:45 13:45 WBC 12.1 H (3.8-10.6) k/uL RBC 5.29 (4.30-5.90) m/uL Hgb 15.6 (13.0-17.5) gm/dL Hct 48.9 (39.0-53.0) % MCV 92.4 (80.0-100.0) fL MCH 29.5 (25.0-35.0) pg MCHC 31.9 (31.0-37.0) g/dL RDW 13.9 (11.5-15.5) % Plt Count 244 (150-450) k/uL MPV 8.2 Neutrophils % 64 % Lymphocytes % 25 % Monocytes % 5 % Eosinophils % 2 % Basophils % 1 % Neutrophils # 7.7 (1.3-7.7) k/uL Lymphocytes # 3.0 (1.0-4.8) k/uL Monocytes # 0.6 (0-1.0) k/uL Eosinophils # 0.3 (0-0.7) k/uL Basophils # 0.1 (0-0.2) k/uL PT 10.5 (10.0-12.5) sec INR 0.9 (<1.2) APTT 26.8 (22.0-30.0) sec Sodium 136 L (137-145) mmol/L Potassium 4.7 (3.5-5.1) mmol/L Chloride 103 (98-107) mmol/L Carbon Dioxide 23 (22-30) mmol/L Anion Gap 10 mmol/L BUN 12 (9-20) mg/dL Creatinine 0.82 (0.66-1.25) mg/dL Est GFR (CKD-EPI)AfAm >90 (>60 ml/min/1.73 sqM) Est GFR (CKD-EPI)NonAf >90 (>60 ml/min/1.73 sqM) Glucose 112 H (74-99) mg/dL Calcium 9.3 (8.4-10.2) mg/dL Total Bilirubin 1.0 (0.2-1.3) mg/dL AST 38 (17-59) U/L ALT 24 (4-49) U/L Alkaline Phosphatase 76 (38-126) U/L Total Protein 7.6 (6.3-8.2) g/dL Albumin 4.5 (3.5-5.0) g/dL Amylase 123 H (30-110) U/L Lipase 875 H (23-300) U/L Disposition Clinical Impression: Abdominal pain Disposition: ADMITTED IP TO THIS HOSP Is patient prescribed a controlled substance at d/c from ED?: No Referrals: Tigist Barrientos MD [Primary Care Provider] - 1-2 days Time of Disposition: 14:47
[2024-08-12] MEDS: SODIUM CHLORIDE 0.9% 1,000 ML IV ONE (13:48)
[2024-08-12] MEDS: FAMOTIDINE 20 MG/2 ML VIAL IV STA (13:48)
[2024-08-12] MEDS: HYDROmorphone 1 MG/ML 1 ML SYRINGE IVP STA ×2 (13:49→14:37)
[2024-08-12 13:56] LABS: Basophils # (A) 0.1 k/uL (0-0.2); Basophils % (A) 1 %; Eosinophils # (A) 0.3 k/uL (0-0.7); Eosinophils % (A) 2 %; HCT 48.9 % (39.0-53.0); HGB 15.6 gm/dL (13.0-17.5); Lymphocytes % (A) 25 %; MCH 29.5 pg (25.0-35.0); MCHC 31.9 g/dL (31.0-37.0); MCV 92.4 fL (80.0-100.0); Mean Platelet Volume 8.2; Monocytes # (A) 0.6 k/uL (0-1.0); Monocytes % (A) 5 %; Neutrophils # (A) 7.7 k/uL (1.3-7.7); Neutrophils % (A) 64 %; Platelet Count 244 k/uL (150-450); RBC 5.29 m/uL (4.30-5.90); RDW 13.9 % (11.5-15.5); WBC 12.1 k/uL (3.8-10.6)
[2024-08-12 14:04] LABS: INR 0.9 (<1.2); Partial Thromboplastin Time 26.8 sec (22.0-30.0); Prothrombin Time 10.5 sec (10.0-12.5)
[2024-08-12 14:19] LABS: ALT 24 U/L (4-49); African American GFR (CKD) >90 (>60 ml/min/1.73 sqM); Albumin 4.5 g/dL (3.5-5.0); Amylase 123 U/L (30-110); Anion Gap 10 mmol/L; Blood Urea Nitrogen 12 mg/dL (9-20); Calcium 9.3 mg/dL (8.4-10.2); Carbon Dioxide 23 mmol/L (22-30); Chloride 103 mmol/L (98-107); Glucose 112 mg/dL (74-99); Lipase 875 U/L (23-300); Non-African American GFR(CKD) >90 (>60 ml/min/1.73 sqM); Sodium 136 mmol/L (137-145); Total Protein 7.6 g/dL (6.3-8.2)
--- NOTE | 2024-08-12 14:37 | CT ---
EXAMINATION TYPE: CT abdomen pelvis wo con CT DLP: 673 mGycm, Automated exposure control for dose reduction was used. DATE OF EXAM: 08/12/2024 2:18 PM COMPARISON: CT abdomen pelvis 04/27/2024, 12/03/2023 CLINICAL INDICATION:Male, 58 years old with history of abdominal pain; severe abdominal pain. extensi ve abdominal hx with sxs TECHNIQUE: Standard CT of the abdomen and pelvis without IV or oral contrast. Lack of IV or oral co ntrast limits evaluation of solid and hollow organ viscera. Coronal and sagittal reformats were perfo rmed. FINDINGS: LOWER CHEST: Right lower lobe linear atelectasis. Punctate left lower lobe calcified granuloma redemo nstrated. ABDOMEN LIVER: Unremarkable noncontrast appearance. GALLBLADDER AND BILE DUCTS: Gallbladder is surgically absent. No biliary ductal dilatation. PANCREAS: Unremarkable noncontrast appearance. SPLEEN: Unremarkable noncontrast appearance. ADRENAL GLANDS: Unremarkable noncontrast appearance.. KIDNEYS AND URETERS: No evidence of hydronephrosis or renal calculus. Multiple bilateral renal cortic al cysts redemonstrated. PELVIS BLADDER: Underdistended but grossly unremarkable. REPRODUCTIVE: Unremarkable. ABDOMEN & PELVIS STOMACH AND BOWEL: Stomach and duodenum are unremarkable. Postsurgical changes with left lower anteri or abdominal wall ostomy with Ventura's pouch. Difficult to follow the bowel due to surgical history and lack of oral contrast. Dilated bowel within the left abdomen measuring up to 3.9 cm without wall thickening or surrounding inflammatory changes. No focal transition point. No pneumatosis. PERITONEUM: No evidence of pneumoperitoneum or free fluid. VASCULATURE: Mild atherosclerotic calcifications are present throughout the abdominal aorta and its b ranches. No evidence of aortic aneurysm. Stable infrarenal fusiform abdominal aortic ectasia measurin g up to 2.8 cm. MUSCULOSKELETAL: No acute osseous abnormalities. Mild multilevel degenerative disc disease. Most pron ounced at L4-L5. LYMPH NODES: No gross evidence for lymphadenopathy. SOFT TISSUE/ABDOMINAL WALL: Right anterior lateral mid abdominal wall hernia containing nonobstructin g bowel loops again. Left anterior lower abdomen ostomy. IMPRESSION: Postsurgical changes of the bowel with dilated bowel within the left abdomen without focal transition point suggesting possible ileus versus partial small obstruction obstruction. Consider further evalu ation with small bowel follow-through. [facility], , 08/12/2024 2:35 PM
[2024-08-12 14:38] LABS: AST 38 U/L (17-59); Alkaline Phosphatase 76 U/L (38-126); Potassium 4.7 mmol/L (3.5-5.1)
[2024-08-12] MEDS ORDERED: HYDROmorphone 0.5 MG/0.5 ML SYRINGE IVP PRN (14:49)
[2024-08-12] MEDS ORDERED: NALOXONE 0.4 MG/ML 1 ML VIAL IV PRN (14:49)
[2024-08-12] MEDS ORDERED: HYDROcodone/APAP 10-325MG 1 EACH TAB PO PRN (14:52)
[2024-08-12] MEDS ORDERED: ALPRAZolam 1 MG TAB PO PRN (14:52)
[2024-08-12] MEDS ORDERED: LORazepam 2 MG/ML INJ IV PRN (15:02)
[2024-08-12] MEDS: PANTOPRAZOLE 40 MG/10 ML VIAL IVP SCH (15:18)
--- NOTE | 2024-08-12 15:29 | XR ---
EXAMINATION TYPE: XR chest 1V portable DATE OF EXAM: 08/12/2024 3:14 PM COMPARISON: Chest radiographs from 07/29/2024. CLINICAL INDICATION: Male, 58 years old with history of chf; TECHNIQUE: XR chest 1V portable Frontal view of the chest. FINDINGS: Lungs/Pleura: There is no evidence of pleural effusion, focal consolidation, or pneumothorax. Pulmonary vascularity: Unremarkable. Heart/mediastinum: Cardiomediastinal silhouette is unremarkable. Musculoskeletal: No acute osseous pathology. IMPRESSION: No acute cardiopulmonary disease/process. [facility], , 08/12/2024 3:26 PM
[2024-08-12 16:38] LABS: Appearance,Urine Clear (Clear); Bilirubin,Urine Negative (Negative); Blood,Urine Negative (Negative); Color,Urine Yellow; Glucose,Urine (UA) Negative (Negative); Ketones,Urine Negative (Negative); Leukocyte Esterase,Urine Negative (Negative); Nitrite,Urine Negative (Negative); Protein,Urine Trace (Negative); Specific Gravity,Urine 1.031 (1.001-1.035); Urobilinogen,Urine <2.0 mg/dL (<2.0)
[2024-08-12 16:52] LABS: Amphetamine Screen,Urine Not Detected (NotDetected); Barbiturate Screen,Urine Not Detected (NotDetected); Benzodiazepines Screen,Urine Detected (NotDetected); Cocaine Screen,Urine Not Detected (NotDetected); Methadone Screen, Urine Not Detected (NotDetected); Opiate Screen,Urine Detected (NotDetected); Oxycodone Screen, Urine Not Detected (NotDetected); Phencyclidine Screen,Urine Not Detected (NotDetected); Tricyclic Antidepressant,Urine Not Detected (NotDetected); Urn Cannabinoid Scrn Detected (NotDetected)
[2024-08-12] MEDS: HYDROmorphone 1 MG/ML 1 ML SYRINGE IVP PRN (17:33)
[2024-08-12] MEDS: SODIUM CHLORIDE 0.9% 1,000 ML IV SCH (17:46)
[2024-08-12 18:25] LABS: Influenza A Not Detected (Not Detectd); Influenza B Not Detected (Not Detectd); RSV Not Detected (Not Detectd)
[2024-08-12] MEDS ORDERED: LORazepam 1 MG/0.5 ML VIAL IV PRN (18:30)
[2024-08-12] MEDS: LOSARTAN 25 MG TAB PO SCH (20:41)
[2024-08-12] MEDS: METOPROLOL SUCCINATE (ER) 100 MG TAB.ER.24H PO SCH (20:41)
[2024-08-12] MEDS: HEPARIN SODIUM,PORCINE 5,000 UNIT/ML 1 ML VIAL SQ SCH (20:42)
[2024-08-12] MEDS: ALBUTEROL HFA INHALER INHALATION PRN (20:53)
[2024-08-12] MEDS: ONDANSETRON ODT 4 MG TAB PO PRN (20:53)
[2024-08-12] MEDS: NICOTINE 21MG/24HR PATCH TRANSDERM SCH (21:20)
[2024-08-12] MEDS: diazePAM 5 MG TAB PO PRN (21:27)
--- NOTE | 2024-08-12 23:33 | HP ---
HISTORY AND PHYSICAL CHIEF COMPLAINT: Abdominal pain. HISTORY OF PRESENT ILLNESS: This is a 58-year-old gentleman with a past medical history of Crohn disease with ileostomy, is complaining of abdominal pain which is felt in the upper abdomen diffusely. His white count is elevated. The abdomen and pelvis CT scan was done, which showed postsurgical changes with some dilated bowel within the left abdomen without any focal transfusion, possibly ileus. There is no history of any fever, rigors, or chills at this time. PAST MEDICAL HISTORY: History of Crohn disease, history of multiple resections and ileostomy, hypertension, GERD. Rest of the history and rest of the chart are also reviewed. HOME MEDICATIONS: Reviewed include Valium. Dose and rest of medications reviewed. ALLERGIES: Iodinated contrast dyes. FAMILY HISTORY: History of brain tumor. SOCIAL HISTORY: History of smoking THC. REVIEW OF SYSTEMS: A 14-point review of systems is negative except as mentioned earlier. PHYSICAL EXAMINATION: VITAL SIGNS: Pulse 75, blood pressure 119/74, respirations 20. HEENT: Conjunctivae normal. NECK: No JVD. CARDIOVASCULAR: S1, S2. RESPIRATIONS: Breath sounds diminished at the bases. A few scattered rhonchi and crackles. ABDOMEN: Soft, mild diffuse tenderness present. No guarding. No rigidity. Ileostomy present. Bowel sounds diminished. No ascites. LEGS: No edema. NERVOUS SYSTEM: Nonfocal. LABORATORY DATA: Amylase 123, lipase 875. ASSESSMENT: 1. Acute severe abdominal pain, possibly acute pancreatitis or Crohn disease acute exacerbation. 2. Possibly ileus. 3. Hyponatremia. 4. Elevated WBC. 5. Gastroesophageal reflux disease. 6. Hypertension. 7. History of gastric ulcer. 8. History of cholecystectomy. 9. History of attention deficit disorder, attention deficit hyperactivity disorder. 10.Anxiety, bipolar. RECOMMENDATIONS AND DISCUSSION: This is a 58-year-old gentleman, who presented with severe abdominal pain. At this time, I recommend to continue current management and continue symptomatic treatment. Otherwise, I would also resume the home medications. GI consultation. Repeat amylase, lipase. Surgical evaluation. Prognosis extremely guarded because of multiple complex medical issues. Further recommendations to follow. Home medications will be continued after confirmation. MMODL / IJN: [id number] /
[2024-08-13] MEDS ORDERED: METOCLOPRAMIDE 5 MG/ML 2 ML VIAL IVP PRN (03:57)
[2024-08-13 08:07] LABS: Basophils # (A) 0.09 X 10*3/uL (0.00-0.10); Basophils % (A) 0.6 %; Eosinophils # (A) 0.16 X 10*3/uL (0.04-0.35); HCT 46.1 % (39.6-50.0); Lymphocytes % (A) 13.3 %; MCH 29.7 pg (27.0-32.0); MCHC 32.5 g/dL (32.0-37.0); MCV 91.3 FL (80.0-97.0); Mean Platelet Volume 11.1 FL (9.5-12.2); Monocytes # (A) 1.36 X 10*3/uL (0.20-1.00); Monocytes % (A) 8.6 %; NRBC Per 100 WBC 0 X 10*3/uL (0.00-0.01); Neutrophils # (A) 12.01 X 10*3/uL (1.80-7.70); Platelet Count 244 X 10*3/uL (140-440); RBC 5.05 X 10*6/uL (4.40-5.60); RDW 14.5 % (11.5-14.5)
[2024-08-13 08:25] VITALS: BP 107/61; PULSE 78; RESP 16; TEMP 97.8
--- NOTE | 2024-08-13 10:21 | P.CONS ---
History of Present Illness - Reason for Consult Consult date: 08/13/24 Abdominal Requesting physician: Rigo Valdez - Chief Complaint Abdominal pain and distention - History of Present Illness This is a pleasant 58-year-old male with a history of Crohn's disease with multiple surgeries in the past who underwent subtotal colectomy and ileostomy in 1994. He follows with Dr. Escobedo. He presented to the emergency department with complaints of abdominal pain, abdominal distention and no output from his bag and was concern for possible obstruction. He states symptoms started yesterday. He states overnight and early this morning he is starting to feel better, he has had output from his ileostomy and he is emptied his bag once. He denies any nausea or vomiting. He has been NPO. He had a CT of the abdomen pelvis reporting dilated bowel in the left upper abdomen consider ileus versus small bowel obstruction. Patient also had elevated amylase and lipase 123 and 875 respectively. He does have a history of previous pancreatitis. Patient underwent ileoscopy with Dr. Escobedo on 06/27/2023 with findings of normal distal ileum no active Crohn's disease and mild prolapse of ileostomy. Review of Systems REVIEW OF SYSTEMS: CARDIOPULMONARY: No chest pain or shortness of breath. Gastrointestinal: Abdominal pain, now resolved. Abdominal distention, resolved. No nausea or vomiting. No hematemesis, coffee-ground emesis. No rectal bleeding, or melena. Decreased stool output, resolved GENITOURINARY: No dysuria or hematuria. MUSCULOSKELETAL: Reports normal range of motion. SKIN: No rashes. No jaundice. ENDOCRINE: No chills, fevers. No excessive weight gain or loss. No polydipsia or polyuria. PSYCHIATRIC: Unremarkable. NEUROLOGY: No change in mental status. Denies dizziness, headache. ENT: Vision unremarkable. CONSTITUTIONAL: No recent weight loss. No fever, chills, night sweats. Past Medical History Past Medical History: GERD/Reflux, Hypertension Additional Past Medical History / Comment(s): Nephrolithiasis, hematuria, crohn 's disease/multiple resections and ileostomy, gastric ulcer, colon polyps, anemia, DDD, chronic back pain, numbness/tingling bilateral legs, sinus problems/seasonal allergies, aortic aneurysm History of Any Multi-Drug Resistant Organisms: None Reported Past Surgical History: Bowel Resection, Cholecystectomy, Hernia Repair Additional Past Surgical History / Comment(s): cystoscopies/L ureteroscopy/lithotripsy/double J catheter insertion and removal, ureteral stent, multiple bowel resections/ileostomy, colonoscopies, incisional hernia repair, epidural injections to back. Past Anesthesia/Blood Transfusion Reactions: No Reported Reaction Additional Past Anesthesia/Blood Transfusion Reaction / Comm: Pt received blood in 1979 without reaction. Past Psychological History: ADD/ADHD, Anxiety, Bipolar, Depression Additional Psychological History / Comment(s): Pt resides with his spouse. He uses no assistive device. He drives. Smoking Status: Current every day smoker Past Alcohol Use History: None Reported Additional Past Alcohol Use History / Comment(s): Pt started smoking in 1982 and is DOWN TO ABOUT 1/2-3/4 PPD FROM 1-1.5 ppd smoker. Past Drug Use History: Cocaine, Marijuana Additional Drug Use History / Comment(s): Pt smokes marijuana occasionally.- INSTRUCTED TO REFRAIN FROM USE FOR AT LEAST 24 HOURS PRIOR TO PROCEDURE. 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 - Past Family History Father Additional Family Medical History / Comment(s): Father is . He had a brain tumor. Pt unsure if cancerous. Medications and Allergies Home Medications Medication Instructions Recorded Confirmed Type HYDROcodone/APAP 10-325MG [[place] 1 tab PO BID PRN 03/17/14 08/12/24 History 10-325] ALPRAZolam [Xanax] 1 mg PO HS PRN 05/22/15 08/12/24 History diazePAM [Valium] 10 mg PO DAILY PRN 11/21/18 08/12/24 History Metoprolol Succinate (ER) [Toprol 100 mg PO HS 12/28/21 08/12/24 History XL] Albuterol Sulfate [Ventolin HFA] 2 puff INHALATION RT-Q6H PRN 12/03/23 08/12/24 History Ondansetron Odt [Zofran ODT] 4 mg PO TID PRN 12/03/23 08/12/24 History Losartan [Cozaar] 25 mg PO HS 08/12/24 08/12/24 History Allergies Allergy/AdvReac Type Severity Reaction Status Date / Time Iodinated Contrast Media Allergy "burning Verified 08/12/24 14:47 [Iodinated Contrast Media - on the IV Dye] inside" ketorolac tromethamine Allergy swelling Verified 08/12/24 14:47 [From Toradol] at injection site Physical Exam Vitals: Vital Signs Temp Pulse Pulse Resp BP BP Pulse Ox 08/13/24 01:09 97.4 F L 67 19 120/70 97 08/12/24 20:00 97.8 F 76 19 154/70 95 08/12/24 19:31 97.2 F L 71 18 151/87 95 08/12/24 17:31 71 18 122/76 98 08/12/24 13:52 77 16 114/74 97 08/12/24 13:10 97.7 F 75 20 119/75 95 Intake and Output 08/12/24 08/12/24 08/13/24 14:59 22:59 06:59 Other: Voiding Method Toilet # Voids 1 5 Weight 95.254 kg 95.254 kg General appearance: The patient is alert, oriented, appears in no acute distress. HET: Head is normocephalic and atraumatic. Conjunctiva pink. Sclera anicteric. Neck: Supple without lymphadenopathy. Trachea midline. Heart: Regular. Lungs: Equal expansion, normal respiratory effort. Abdomen: Soft, nontender, nondistended. Ileostomy with soft brown stool. Skin: No rashes. No jaundice. Extremities: Normal skin color and turgor. No pedal edema. Neurological: No focal deficits. Alert and oriented x3. Results CBC & Chem 7: 08/13/24 05:47 08/12/24 13:45 Labs: Abnormal Lab Results - Last 24 Hours (Table) 08/12/24 08/12/24 08/12/24 Range/Units 13:45 13:45 13:45 WBC 12.1 H (3.8-10.6) k/uL ESR 25 H (0-20) mm/Hr Sodium 136 L (137-145) mmol/L Glucose 112 H (74-99) mg/dL Amylase 123 H (30-110) U/L Lipase 875 H (23-300) U/L Urine Protein (Negative) Urine Opiates Screen (NotDetected) U Benzodiazepines Scrn (NotDetected) U Marijuana (THC) Screen (NotDetected) 08/12/24 08/12/24 Range/Units 14:08 14:08 WBC (3.8-10.6) k/uL ESR (0-20) mm/Hr Sodium (137-145) mmol/L Glucose (74-99) mg/dL Amylase (30-110) U/L Lipase (23-300) U/L Urine Protein Trace H (Negative) Urine Opiates Screen Detected H (NotDetected) U Benzodiazepines Scrn Detected H (NotDetected) U Marijuana (THC) Screen Detected H (NotDetected) Comments: CT abdomen pelvis without contrast reports postsurgical changes of the bowel with dilated bowel within the left abdomen without focal transition point sugges ting possible ileus versus partial small bowel obstruction. Consider further evaluation with small bowel follow-through. Assessment and Plan (1) Abdominal pain Narrative/Plan: 58-year-old male with long history of Crohn's disease with previous subtotal colectomy end ileostomy had acute onset of abdominal pain and distention with decreased output from his ileostomy with concern for possible small bowel obstruction. CT abdomen pelvis showed dilated bowel in the left upper abdomen possible ileus versus bowel obstruction. Patient had been n.p.o. through the night. Symptoms resolved on their own. He is now having adequate output from his ostomy, abdominal distention resolved and as well as abdominal pain. Did have some elevated amylase and lipase and he has had a history of pancreatitis in the past however likely elevation is secondary to Crohn's disease and ileus versus obstruction which is now resolved. Status: Acute Code(s): R10.9 - UNSPECIFIED ABDOMINAL PAIN SNOMED Code(s): 10251765 (2) Crohn's disease Status: Acute Code(s): K50.90 - CROHN'S DISEASE, UNSPECIFIED, WITHOUT COMP LICATIONS SNOMED Code(s): 44014393 Plan: 1. Continue symptomatic and supportive care 2. Start clear liquid diet and advance as tolerated 3. Will get abdominal x-ray to evaluate resolution of ileus versus SBO 4. General surgery in consultation, appreciate their recommendations 5. Rest of medical management per primary medical team 6. Apparently patient has now left AGAINST MEDICAL ADVICE or to any repeat imaging Thank you for this consultation, anticipate patient will be ready for discharge later today if he tolerates his diet. Dr. Kal Escobedo I agree with the dictator's note, documented as a scribe by Saarh Jose.
[2024-08-13 10:25] LABS: ALT 22 U/L (10-49); AST 27 U/L (14-35); Albumin 4.1 g/dL (3.8-4.9); Albumin/Globulin Ratio 1.58 Ratio (1.60-3.17); Alkaline Phosphatase 83 U/L (41-126); Amylase 50 U/L (23-121); Blood Urea Nitrogen 11.3 mg/dL (9.0-27.0); Calcium 8.9 mg/dL (8.7-10.3); Carbon Dioxide 23.6 mmol/L (21.6-31.8); Chloride 107 mmol/L (96-109); Globulin 2.6 g/dL (1.6-3.3); Glucose 89 mg/dL (70-110); Lipase 19 U/L (14-60); Potassium 4.6 mmol/L (3.5-5.5); Sodium 140 mmol/L (135-145); Total Bilirubin 0.6 mg/dL (0.3-1.2); Total Protein 6.7 g/dL (6.2-8.2)
--- NOTE | 2024-08-13 11:37 | P.GSCN ---
History of Present Illness Consult date: 08/13/24 History of present illness: CHIEF COMPLAINT: Abdominal pain HISTORY OF PRESENT ILLNESS: This is a 58-year-old male with a known history of Crohn's with multiple bowel resections and an ileostomy. Patient reports yesterday he started to have severe abdominal pain. And had decreased output from his ostomy. Patient reports he had still been having some output. He had a CT scan abdomen and pelvis completed that had reported ileus versus partial small bowel obstruction. Patient reports during the night he opened up and started having a lot of output through his ostomy. He emptied his ileostomy bag 6 times. He denies any nausea or vomiting. The abdominal pain has resolved. He was seen by GI service who started to clear liquid diet this morning and patient tolerated it. GI service had ordered an abdominal x-ray for follow-up. And upon my examination patient was agreeable to wait for the abdominal x-ray but he was getting agitated and wanting to leave. But it appears patient left AGAINST MEDICAL ADVICE. PAST MEDICAL HISTORY: See below and pancreatitis PAST SURGICAL HISTORY: See below MEDICATIONS: See below ALLERGIES: See below SOCIAL HISTORY: No illicit drug use. No EtOH use REVIEW OF SYSTEMS: CONSTITUTIONAL: Denies fever or chills. HEENT: Denies blurred vision, vision changes, or eye pain. Denies hemoptysis CARDIOVASCULAR: Denies chest pain or pressure. RESPIRATORY: No shortness of breath. GASTROINTESTINAL: See HPI for pertinent findings HEMATOLOGIC: Denies bleeding disorders. GENITOURINARY: Denies any blood in urine or increased urinary frequency. SKIN: Denies pruitis. Denies rash. PHYSICAL EXAM: VITAL SIGNS: Reviewed GENERAL: Well-developed in no acute distress. HEENT: No sclera icterus. Extraocular movements grossly intact. Moist buccal mucosa. Head is atraumatic, normocephalic. No nasal drainage. ABDOMEN: Soft. Nondistended. Nontender. Small amount of stool noted in ostomy bag NEUROLOGIC: Alert and oriented. Cranial nerves II through XII grossly intact. LABORATORY DATA: WBC 12.1 up to 15.8 Hgb 15 platelets 244 Sodium 140 potassium 4.6 creatinine 1.0 Lipase 875 LFTs normal Urine drug screen positive for opiates benzodiazepine and marijuana Influenza, RSV COVID-19 not detected IMAGING: CT scan abdomen and pelvis reports postsurgical changes of the bowel with dilated bowel within the left abdomen without focal transition point suggesting possible ileus versus partial small bowel obstruction. ASSESSMENT: 1. Abdominal pain likely due to ileus or partial small bowel obstruction 2. History of Crohn's with multiple bowel resections and ileostomy 3. Mildly elevated lipase 4. History of cholecystectomy PLAN: -Ostomy is functioning. He is tolerating clear liquid diet. Did recommend to the patient to complete the abdominal x-ray for today. Patient has left AGAINST MEDICAL ADVICE before xray was completed. Physician Ski Instructor note has been reviewed by physician. Signing provider agrees with the documented findings, assessment, and plan of care. I have personally seen and examined the patient, reviewed the BARREL BRANDER /PAs history, exam and MDM and agree with the assessment and plan as written. Based on total visit time, I have performed more than 50% of the visit. As above: Patient was admitted with abdominal pain that quickly resolved after admission. Apparently he left AGAINST MEDICAL ADVICE prior to my physically seeing him. I had already gone over his case with my PA. Apparently the x-rays that were ordered this morning were never done. Past Medical History Past Medical History: GERD/Reflux, Hypertension Additional Past Medical History / Comment(s): Nephrolithiasis, hematuria, crohn's disease/multiple resections and ileostomy, gastric ulcer, colon polyps, anemia, DDD, chronic back pain, numbness/tingling bilateral legs, sinus problems/seasonal allergies, aortic aneurysm History of Any Multi-Drug Resistant Organisms: None Reported Past Surgical History: Bowel Resection, Cholecystectomy, Hernia Repair Additional Past Surgical History / Comment(s): cystoscopies/L ureteroscopy/lithotripsy/double J catheter insertion and removal, ureteral stent, multiple bowel resections/ileostomy, colonoscopies, incisional hernia repair, epidural injections to back. Past Anesthesia/Blood Transfusion Reactions: No Reported Reaction Additional Past Anesthesia/Blood Transfusion Reaction / Comm: Pt received blood in 1979 without reaction. Past Psychological History: ADD/ADHD, Anxiety, Bipolar, Depression Additional Psychological History / Comment(s): Pt resides with his spouse. He uses no assistive device. He drives. Smoking Status: Current every day smoker Past Alcohol Use History: None Reported Additional Past Alcohol Use History / Comment(s): Pt started smoking in 1982 and is DOWN TO ABOUT 1/2-3/4 PPD FROM 1-1.5 ppd smoker. Past Drug Use History: Cocaine, Marijuana Additional Drug Use History / Comment(s): Pt smokes marijuana occasionally.- INSTRUCTED TO REFRAIN FROM USE FOR AT LEAST 24 HOURS PRIOR TO PROCEDURE. 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 - Past Family History Father Additional Family Medical History / Comment(s): Father is . He had a brain tumor. Pt unsure if cancerous. Medications and Allergies Home Medications Medication Instructions Recorded Confirmed Type HYDROcodone/APAP 10-325MG [[place] 1 tab PO BID PRN 03/17/14 08/12/24 History 10-325] ALPRAZolam [Xanax] 1 mg PO HS PRN 05/22/15 08/12/24 History diazePAM [Valium] 10 mg PO DAILY PRN 11/21/18 08/12/24 History Metoprolol Succinate (ER) [Toprol 100 mg PO HS 12/28/21 08/12/24 History XL] Albuterol Sulfate [Ventolin HFA] 2 puff INHALATION RT-Q6H PRN 12/03/23 08/12/24 History Ondansetron Odt [Zofran ODT] 4 mg PO TID PRN 12/03/23 08/12/24 History Losartan [Cozaar] 25 mg PO HS 08/12/24 08/12/24 History Allergies Allergy/AdvReac Type Severity Reaction Status Date / Time Iodinated Contrast Media Allergy "burning Verified 08/12/24 14:47 [Iodinated Contrast Media - on the IV Dye] inside" ketorolac tromethamine Allergy swelling Verified 08/12/24 14:47 [From Toradol] at injection site Surgical - Exam Vital Signs Temp Pulse Resp BP Pulse Ox 97.7 F 75 20 119/75 95 08/12/24 13:10 08/12/24 13:10 08/12/24 13:10 08/12/24 13:10 08/12/24 13:10 Results - Labs 08/13/24 05:47 08/13/24 05:47 Abnormal Lab Results - Last 24 Hours (Table) 08/12/24 08/12/24 08/12/24 Range/Units 13:45 13:45 13:45 WBC 12.1 H (3.8-10.6) k/uL Immature Gran # (0.00-0.04) X 10*3/uL Neutrophils # (1.80-7.70) X 10*3/uL Monocytes # (0.20-1.00) X 10*3/uL ESR 25 H (0-20) mm/Hr Sodium 136 L (137-145) mmol/L BUN/Creatinine Ratio (12.00-20.00) Ratio Glucose 112 H (74-99) mg/dL Albumin/Globulin Ratio (1.60-3.17) Ratio Amylase 123 H (30-110) U/L Lipase 875 H (23-300) U/L Urine Protein (Negative) Urine Opiates Screen (NotDetected) U Benzodiazepines Scrn (NotDetected) U Marijuana (THC) Screen (NotDetected) 08/12/24 08/12/24 08/13/24 Range/Units 14:08 14:08 05:47 WBC 15.80 H (3.8-10.6) k/uL Immature Gran # 0.08 H (0.00-0.04) X 10*3/uL Neutrophils # 12.01 H (1.80-7.70) X 10*3/uL Monocytes # 1.36 H (0.20-1.00) X 10*3/uL ESR (0-20) mm/Hr Sodium (137-145) mmol/L BUN/Creatinine Ratio (12.00-20.00) Ratio Glucose (74-99) mg/dL Albumin/Globulin Ratio (1.60-3.17) Ratio Amylase (30-110) U/L Lipase (23-300) U/L Urine Protein Trace H (Negative) Urine Opiates Screen Detected H (NotDetected) U Benzodiazepines Scrn Detected H (NotDetected) U Marijuana (THC) Screen Detected H (NotDetected) 08/13/24 Range/Units 05:47 WBC (3.8-10.6) k/uL Immature Gran # (0.00-0.04) X 10*3/uL Neutrophils # (1.80-7.70) X 10*3/uL Monocytes # (0.20-1.00) X 10*3/uL ESR (0-20) mm/Hr Sodium (137-145) mmol/L BUN/Creatinine Ratio 11.30 L (12.00-20.00) Ratio Glucose (74-99) mg/dL Albumin/Globulin Ratio 1.58 L (1.60-3.17) Ratio Amylase (30-110) U/L Lipase (23-300) U/L Urine Protein (Negative) Urine Opiates Screen (NotDetected) U Benzodiazepines Scrn (NotDetected) U Marijuana (THC) Screen (NotDetected) Diabetes panel 08/12/24 08/13/24 Range/Units 13:45 05:47 Sodium 136 L 140 (137-145) mmol/L Potassium 4.7 4.6 (3.5-5.1) mmol/L Chloride 103 107 (98-107) mmol/L Carbon Dioxide 23 23.6 (22-30) mmol/L BUN 12 11.3 (9-20) mg/dL Creatinine 0.82 1.0 (0.66-1.25) mg/dL Glucose 112 H 89 (74-99) mg/dL Calcium 9.3 8.9 (8.4-10.2) mg/dL AST 38 27 (17-59) U/L ALT 24 22 (4-49) U/L Alkaline Phosphatase 76 83 (38-126) U/L Total Protein 7.6 6.7 (6.3-8.2) g/dL Albumin 4.5 4.1 (3.5-5.0) g/dL Calcium panel 08/12/24 08/13/24 Range/Units 13:45 05:47 Calcium 9.3 8.9 (8.4-10.2) mg/dL Albumin 4.5 4.1 (3.5-5.0) g/dL Pituitary panel 08/12/24 08/13/24 Range/Units 13:45 05:47 Sodium 136 L 140 (137-145) mmol/L Potassium 4.7 4.6 (3.5-5.1) mmol/L Chloride 103 107 (98-107) mmol/L Carbon Dioxide 23 23.6 (22-30) mmol/L BUN 12 11.3 (9-20) mg/dL Creatinine 0.82 1.0 (0.66-1.25) mg/dL Glucose 112 H 89 (74-99) mg/dL Calcium 9.3 8.9 (8.4-10.2) mg/dL Adrenal panel 08/12/24 08/13/24 Range/Units 13:45 05:47 Sodium 136 L 140 (137-145) mmol/L Potassium 4.7 4.6 (3.5-5.1) mmol/L Chloride 103 107 (98-107) mmol/L Carbon Dioxide 23 23.6 (22-30) mmol/L BUN 12 11.3 (9-20) mg/dL Creatinine 0.82 1.0 (0.66-1.25) mg/dL Glucose 112 H 89 (74-99) mg/dL Calcium 9.3 8.9 (8.4-10.2) mg/dL Total Bilirubin 1.0 0.6 (0.2-1.3) mg/dL AST 38 27 (17-59) U/L ALT 24 22 (4-49) U/L Alkaline Phosphatase 76 83 (38-126) U/L Total Protein 7.6 6.7 (6.3-8.2) g/dL Albumin 4.5 4.1 (3.5-5.0) g/dL
--- NOTE | 2024-08-15 15:13 | P.DS ---
Providers Date of admission: 08/12/24 14:52 Expected date of discharge: 08/13/24 Attending physician: Macey Foster Consults: 08/12/24 14:49 Consult Physician Routine Consulting Provider: Poli Barrientos Consult Reason/Comments: abp Do you want consulting provider notified?: Yes Consult Physician Routine Consulting Provider: Enid Escobedo Consult Reason/Comments: abp Do you want consulting provider notified?: Yes Primary care physician: Tigist Barrientos Hospital Course: Final diagnosis Acute severe abdominal pain, possible acute pancreatitis or Crohn disease acute exacerbation Possible ileus Hyponatremia Elevated white blood count GERD Hypertension History of gastric ulcer disease History of cholecystectomy History of ADHD/ADD History of anxiety/bipolar GI prophylaxis DVT prophylaxis Full code Discharge disposition Patient has left AGAINST MEDICAL ADVICE. Risk versus benefits explained and per nursing staff patient signed paperwork.. Patient will follow-up with Dr. Barrientos in the outpatient setting upon discharge. Patient should follow-up with general surgery and/or GI outpatient. Total time taken is greater than 35 minutes. Hospital course This is a 58-year-old male who was recently admitted with severe abdominal pain and elevated white count concerns for possible acute pancreatitis and/or Crohn's disease acute exacerbation. Patient underwent CT abdomen showing postsurgical changes with some dilated bowel within the left abdomen without any focal transfusion, possible ileus. Patient being evaluated by general surgery and GI although per nursing staff, patient decided to leave AGAINST MEDICAL ADVICE prior to being evaluated. Patient with risk versus benefits explained signed the paperwork and left. Overall guarded prognosis. High risk for readmissions given ongoing comorbidities. The impression and plan of care has been dictated by Patricia Lundy, Nurse Practitioner as directed. Dr. Cristian MD I have performed a history and examination and MDM of this patient, discussed the same with the dictator, and agree with the dictator's assessment and plan as written ,documented as a scribe. Based on total visit time, I have performed more than 50% of the visit. Patient Condition at Discharge: Undetermined Plan - Discharge Summary New Discharge Prescriptions: No Action HYDROcodone/APAP 10-325MG [[place] 10-325] 1 tab PO BID PRN PRN Reason: Pain ALPRAZolam [Xanax] 1 mg PO HS PRN PRN Reason: Anxiety diazePAM [Valium] 10 mg PO DAILY PRN PRN Reason: Anxiety Metoprolol Succinate (ER) [Toprol XL] 100 mg PO HS Ondansetron Odt [Zofran ODT] 4 mg PO TID PRN PRN Reason: Nausea Albuterol Sulfate [Ventolin HFA] 2 puff INHALATION RT-Q6H PRN PRN Reason: Shortness Of Breath Losartan [Cozaar] 25 mg PO HS Discharge Medication List HYDROcodone/APAP 10-325MG [[place] 10-325] 1 tab PO BID PRN 03/17/14 [History] ALPRAZolam [Xanax] 1 mg PO HS PRN 05/22/15 [History] diazePAM [Valium] 10 mg PO DAILY PRN 11/21/18 [History] Metoprolol Succinate (ER) [Toprol XL] 100 mg PO HS 12/28/21 [History] Albuterol Sulfate [Ventolin HFA] 2 puff INHALATION RT-Q6H PRN 12/03/23 [History] Ondansetron Odt [Zofran ODT] 4 mg PO TID PRN 12/03/23 [History] Losartan [Cozaar] 25 mg PO HS 08/12/24 [History] Follow up Appointment(s)/Referral(s): Tigist Barrientos MD [Primary Care Provider] - 1-2 days Discharge Disposition: LEFT AGAINST MEDICAL ADVICE
== END 2024-08-13 09:55 | disposition left against medical advice (07) ==
LOC: EC 13:00 → 6NMEDSUR 14:52
PROVIDERS: ADMIT Hospitalist; ATTEND Hospitalist
DX: R10.10 Upper abdominal pain, unspecified (principal); E87.1 Hypo-osmolality and hyponatremia; R14.0 Abdominal distension (gaseous); Z93.2 Ileostomy status; R74.8 Abnormal levels of other serum enzymes; D72.829 Elevated white blood cell count, unspecified; K21.9 Gastro-esophageal reflux disease without esophagitis; I10 Essential (primary) hypertension; F90.9 Attention-deficit hyperactivity disorder, unspecified type; F31.9 Bipolar disorder, unspecified; F41.9 Anxiety disorder, unspecified; F17.210 Nicotine dependence, cigarettes, uncomplicated; Z53.29 Procedure and treatment not carried out because of patient's decision for other reasons; Z79.899 Other long term (current) drug therapy; Z88.6 Allergy status to analgesic agent; Z91.041 Radiographic dye allergy status; Z87.19 Personal history of other diseases of the digestive system; Z87.11 Personal history of peptic ulcer disease; Z90.49 Acquired absence of other specified parts of digestive tract
CPT/HCPCS: 96376 ×3; 96372; 96361; 96374; 96375; 99285; 36415; 94640; 80053 ×2; 85652; 82150 ×2; 83690 ×2; 85025 ×2; 85610; 85730; 86140; 81003; 80306; 87636; 71045; 74176; G0378 ×2; S4990; J1644; J3490; J1171 ×2; J2470